=== PATIENT | female | born 2000 | race Caucasian/White ===

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

== ENCOUNTER → 2021-02-06 09:13 | Outpatient (CLI) | payer MEDICAID, SELFPAY ==
[2021-02-06 10:19] LABS: Glucose,Fasting 79 mg/dl (74-100)
[2021-02-06 13:37] LABS: Glucose 1 Hour 117 mg/dL (74-100)
== END ==
PROVIDERS: Visit Provider Obstetrics & Gynecology
DX: Z34.90 Encounter for supervision of normal pregnancy, unspecified, unspecified trimester (principal)
CPT/HCPCS: 36415; 82951

== ENCOUNTER 2021-02-21 20:32 | Outpatient (CLI) | payer MEDICAID, SELFPAY ==
[2021-02-21 21:26] VITALS: BMI 25.0
[2021-02-21 21:28] VITALS: BP 129/74; PULSE 119; RESP 18; TEMP 37.1; O2SAT 97; BMI 25.0
[2021-02-21 21:34] LABS: Microscopic, Urine URINE MICROSCOPIC (MICROSCOPIC)
[2021-02-21 21:35] LABS: Appearance,Urine TURBID (Clear); Bilirubin,Urine Negative (Negative); Blood, Urine Negative (Negative); Color,Urine YELLOW (Yellow); Glucose,Urine (UA) Negative (Negative); Ketones,Urine Negative (Negative); Leukocyte Esterase,Urine Negative (Negative); Nitrate,Urine Negative (Negative); Protein,Urine Negative (Negative); Urobilinogen,Urine 0.2 EU/dl (0.2)
[2021-02-21 21:50] LABS: Amorphous Sediment,Urine 2+ /lpf; Bacteria,Urine 1+ /lpf; WBC,Urine Occasional #/hpf (0-3)
[2021-02-21 22:10] LABS: Fetal Fibronectin (Rapid) Negative (Negative)
[2021-02-21 22:50] LABS: Barbiturates Screen,Urine Negative ng/ml (<200); Benzodiazepines Screen,Urine Negative ng/ml (<200)
[2021-02-21 22:51] LABS: Amphetamine/Metha Screen,Urine Negative ng/ml (<1000)
[2021-02-21 22:52] LABS: Cocaine Screen,Urine Negative ng/ml (<300); Methadone Screen,Urine Negative ng/ml (<300)
[2021-02-21 22:53] LABS: Cannabinoid Screen,Urine Negative ng/ml (<50)
[2021-02-21 22:54] LABS: Opiate Screen,Urine Negative ng/ml (<300); Phencyclidine Screen,Urine Negative ng/ml (<25)
== END 2021-02-21 22:29 | disposition home or self-care (01) ==
LOC: OBOUT 20:36 → OB 20:37
PROVIDERS: PCP Nurse Practitioner Family; Visit Provider Nurse Practitioner Obstetrics & Gynecology
DX: O47.03 False labor before 37 completed weeks of gestation, third trimester (principal); Z3A.30 30 weeks gestation of pregnancy
CPT/HCPCS: 59025; 80305; 81001; 82731; G0463

== ENCOUNTER 2021-03-28 09:19 | Outpatient (CLI) | payer MEDICAID, SELFPAY ==
--- NOTE | 2021-03-28 09:19 | US_ITS ---
PROCEDURE: US OB BIOPHYSICAL PROFILE CLINICAL INDICATION: tachycardia TECHNIQUE: FINDINGS: The following parameters are obtained: Average ultrasound age is Average 35 weeks 3 days estimated due date by ultrasound is 04/29/2021. Estimated weight is 2474 g which is 27th percentile. BPD: 37 weeks 0 days OFD: 36 weeks 5 days HC: 36 weeks 1 day AC: 34 weeks 2 days FL: 34 weeks 1 day heart rate: 172bpm bpm. HC/AC: 1.06 Cephalic index: 81 percent FL/BPD: 73 percent FL/AC: 22 percent Amniotic fluid index: 9.4 cm Qualitative AFV: 2 breathing movements: 2 Gross body movements: 2 Tone: 2 Biophysical profile score: 8 There is mild prominence of the urinary bladder of the fetus which is nonspecific. The placenta is anterior and 3 IMPRESSION: Live IUP at 35 weeks 3 days. Cephalic presentation. Estimated weight 2474 g which is 27th percentile BPD 8 of 8 GISSELLE 9.4 cm Anterior grade 3 placenta Dictated by: Arthur Cardoso MD 03/28/2021 10:36 Arthur Cardoso MD in [place] 03/28/2021 10:36
[2021-03-28 10:26] VITALS: BP 118/67; PULSE 105; RESP 20; TEMP 37.5; O2SAT 99; BMI 27.1
== END 2021-03-28 10:50 | disposition home or self-care (01) ==
LOC: RAD 09:19 → OBOUT 10:09 → OB 10:09
PROVIDERS: PCP Nurse Practitioner Family; Visit Provider Obstetrics & Gynecology
DX: O36.5990 Maternal care for other known or suspected poor fetal growth, unspecified trimester, not applicable or unspecified (principal); O36.8390 Maternal care for abnormalities of the fetal heart rate or rhythm, unspecified trimester, not applicable or unspecified; Z3A.35 35 weeks gestation of pregnancy
CPT/HCPCS: 59025; 76816; 76819; G0463

== ENCOUNTER → 2021-04-06 15:27 | Outpatient (CLI) | payer MEDICAID, SELFPAY | PROVIDERS: Visit Provider Obstetrics & Gynecology | DX: Z34.90 Encounter for supervision of normal pregnancy, unspecified, unspecified trimester (principal) | CPT/HCPCS: 86403 ==

== ENCOUNTER 2021-04-11 22:59 | Observation (INO) | payer MEDICAID, SELFPAY ==
[2021-04-11 21:11] VITALS: BMI 27.3
[2021-04-11 21:18] LABS: Microscopic, Urine URINE MICROSCOPIC (MICROSCOPIC)
[2021-04-11 21:30] LABS: Appearance,Urine CLEAR (Clear); Bilirubin,Urine Negative (Negative); Blood, Urine Negative (Negative); Color,Urine YELLOW (Yellow); Glucose,Urine (UA) Negative (Negative); Ketones,Urine Negative (Negative); Leukocyte Esterase,Urine Negative (Negative); Nitrate,Urine Negative (Negative); Protein,Urine Negative (Negative); Urobilinogen,Urine 0.2 EU/dl (0.2)
[2021-04-11 21:40] LABS: Benzodiazepines Screen,Urine Negative ng/ml (<200); WBC,Urine Occasional #/hpf (0-3)
[2021-04-11 21:41] LABS: Amphetamine/Metha Screen,Urine Negative ng/ml (<1000); Bacteria,Urine Trace /lpf; Yeast,Urine 1+ /lpf
[2021-04-11 21:42] LABS: Barbiturates Screen,Urine Negative ng/ml (<200); Cannabinoid Screen,Urine Negative ng/ml (<50)
[2021-04-11 21:43] LABS: Cocaine Screen,Urine Negative ng/ml (<300); Methadone Screen,Urine Negative ng/ml (<300)
[2021-04-11 21:44] LABS: Opiate Screen,Urine Negative ng/ml (<300)
[2021-04-11 21:45] LABS: Phencyclidine Screen,Urine Negative ng/ml (<25)
[2021-04-11 23:17] VITALS: BP 126/62; PULSE 104; RESP 20; TEMP 36.6; O2SAT 97; BMI 28.2
[2021-04-11 23:19] VITALS: BP 126/62; PULSE 104; RESP 20; TEMP 36.6; O2SAT 97
[2021-04-12 04:24] VITALS: BP 101/68; PULSE 120; RESP 20; TEMP 36.8; O2SAT 97
[2021-04-12 08:00] VITALS: BP 106/54; PULSE 101; RESP 20; TEMP 36.7; O2SAT 100
--- NOTE | 2021-04-12 09:48 | HMH.HPDC ---
General - General Admission date:: 04/11/21 Discharge date: 04/12/21 *Admission Date: 04/11/21 *Chief complaint: contractions *History of present illness: 20 yo G1 @ 37+ presented to L&D with complaint of uterine contractions Irregular contractions noted; no vaginal bleeding or leakage of fluid NST category 1 She was admitted for overnight observation and assessment for latent labor [facility] History I have reviewed the patient's past medical history: Yes Medical History: Reports:: Asthma Denies:: Diabetes Mellitus Type 1, Diabetes Mellitus Type 2 *Have you ever received a pneumonia vaccine?: No *Have you received a flu vaccine this season?: No Laterality Cases: Bilateral: Tonsillectomy Other Surgeries: No: Amputation: No Fractures: No - *Social History Smoking Status: Never smoker Tobacco Type: cigarettes Alcohol Intake: never Substance Use Type: denies use *Occupational Status:: unemployed *Travel in the last 8 weeks: None Family Hx:: Cancer, Diabetes, Hypertension Para: 0 Review of Systems - Review of Systems Review of systems:: pertinent systems reviewed and negative unless documented below - *Genitourinary Reports other (irregular contractions), Denies abnormal vaginal bleeding Exam Vital signs and Labs for Last 24 Hours: Temp Pulse Resp BP Pulse Ox 98.3 F 120 H 20 101/68 L 97 04/12/21 04:24 04/12/21 04:24 04/12/21 04:24 04/12/21 04:24 04/12/21 04:24 Laboratory Results - last 24 hr 04/11/21 21:10: Urine Color Yellow, Urine Appearance Clear, Urine pH 8.0, Ur Specific [place] 1.010, Urine Protein Negative, Urine Glucose (UA) Negative, Urine Ketones Negative, Urine Blood Negative, Urine Nitrate Negative, Urine Bilirubin Negative, Urine Urobilinogen 0.2, Ur Leukocyte Esterase Negative, Urine RBC None, Urine WBC Occasional, Ur Squamous Epith Cells 3-5, Urine Bacteria Trace, Urine Yeast 1+ 04/11/21 21:10: Urine Opiates Screen Negative, Urine Methadone Screen Negative, Ur Barbituates Screen Negative, Ur Phencyclidine Scrn Negative, Ur Amphetamines Screen Negative, U Benzodiazepines Scrn Negative, Urine Cocaine Screen Negative, U Marijuana (THC) Screen Negative I & O for Last 24 hours: Intake & Output 04/09/21 04/10/21 04/11/21/10/21 11:59 11:59 11:59 11:59 Weight 175 lb Microbiology Reports for the Last 24 Hours: Microbiology 04/12/21 00:20 Nasopharyngeal Coronavirus COVID-19 PCR - Final - Constitutional no acute distress - *Routine HEENT Exam Head: Present: normocephalic Eye: Absent: conjunctival icterus ENT: Present: mucous membranes moist - *Routine Neck Exam Present: supple. Absent: lymphadenopathy - *Routine Respiratory Exam Present: CTA bilaterally - *Routine Cardiovascular Exam Present: RRR - *Routine Abdominal Exam Present: soft, normoactive bowel sounds. Absent: tenderness - *Routine Rectal Exam Rectal:: deferred - *Routine Genitalia Exam Genitalia:: normal female Comment:: cervix closed - *Routine Extremities Exam Absent: cyanosis, clubbing, edema - *Routine Skin Exam Present: dry, warm. Absent: rash - *Routine Neurological Exam Present: alert, oriented X3 - Routine Psychiatric Exam Present: normal affect Hospital Course Hospital Course: IV hydration over night and monitoring Contractions spaced out and no cervical change Discharged home with no evidence of active labor and reassuring status Results Labs on day of discharge: Labs from last 24 hours 04/11/21 04/11/21 21:10 21:10 Urine Color Yellow Urine Appearance Clear Urine pH 8.0 Ur Specific [place] 1.010 Urine Protein Negative Urine Glucose (UA) Negative Urine Ketones Negative Urine Blood Negative Urine Nitrate Negative Urine Bilirubin Negative Urine Urobilinogen 0.2 Ur Leukocyte Esterase Negative Urine RBC None Urine WBC Occasional Ur Squamous Epith Cells 3-5 Urine Bacteria Trace
== END 2021-04-12 11:00 | disposition home or self-care (01) ==
LOC: OBOUT 23:01 → OB 23:01
PROVIDERS: Admitting Provider Nurse Practitioner Obstetrics & Gynecology; PCP Obstetrics & Gynecology; Visit Provider Nurse Practitioner Obstetrics & Gynecology
DX: O60.03 Preterm labor without delivery, third trimester (principal); Z3A.37 37 weeks gestation of pregnancy
CPT/HCPCS: 59025; 80305; 81001; 94761; 96360; 96361; G0283; G0378; U0003

== ENCOUNTER → 2021-04-24 16:19 | Outpatient (CLI) | payer MEDICAID, SELFPAY | PROVIDERS: Visit Provider Obstetrics & Gynecology | DX: Z34.90 Encounter for supervision of normal pregnancy, unspecified, unspecified trimester (principal); Z20.822 Contact with and (suspected) exposure to COVID-19 | CPT/HCPCS: U0003 ==

== ENCOUNTER 2021-04-25 14:30 | Inpatient (IN) | payer MEDICAID, SELFPAY ==
[2021-04-25 14:40] VITALS: BMI 28.8
[2021-04-25 15:00] VITALS: BP 136/62; PULSE 118; RESP 22; TEMP 36.8; O2SAT 100; BMI 28.0
[2021-04-25 15:04] LABS: Microscopic, Urine URINE MICROSCOPIC (MICROSCOPIC)
[2021-04-25 15:10] LABS: Basophils % 0.4 % (0.1-2.0); Eosinophils # 0.1 K/mm3 (0.0-0.4); Eosinophils % 0.7 % (0.1-12.0); Hematocrit 28.3 % (37.0-47.0); Hemoglobin 9.5 g/dL (12.2-16.2); Lymphocytes # 2.2 K/mm3 (0.7-4.5); Lymphocytes % 22.8 % (10-50); Mean Corpuscular HGB Conc 33.5 g/dL (31.8-35.4); Mean Corpuscular Volume 74.7 fl (81-99); Mean Platelet Volume 8.7 fl (7.4-10.4); Monocytes # 0.4 K/mm3 (0.1-1.0); Monocytes % 4.2 % (1.7-9.3); Neutrophils # 6.9 K/mm3 (1.8-7.8); Neutrophils % 71.9 % (37.0-80.0); Platelet Count 237 K/mm3 (142-424); Red Blood Count 3.79 M/mm3 (4.20-5.40); Red Cell Distribution Width 15.6 % (11.5-17.5); White Blood Count 9.6 K/mm3 (4.5-13.0)
[2021-04-25 15:14] LABS: Appearance,Urine SL CLOUDY (Clear); Bilirubin,Urine Negative (Negative); Blood, Urine 1+ (Negative); Color,Urine DK YELLOW (Yellow); Glucose,Urine (UA) Negative (Negative); Ketones,Urine Negative (Negative); Leukocyte Esterase,Urine Negative (Negative); Nitrate,Urine Negative (Negative); PH,Urine 6.5 (5.0-8.5); Protein,Urine Negative (Negative); Urobilinogen,Urine 0.2 EU/dl (0.2)
[2021-04-25 15:24] LABS: Amphetamine/Metha Screen,Urine Negative ng/ml (<1000); Benzodiazepines Screen,Urine Negative ng/ml (<200)
[2021-04-25 15:25] LABS: Barbiturates Screen,Urine Negative ng/ml (<200)
[2021-04-25 15:26] LABS: Cannabinoid Screen,Urine Negative ng/ml (<50); Cocaine Screen,Urine Negative ng/ml (<300)
[2021-04-25 15:27] LABS: Methadone Screen,Urine Negative ng/ml (<300); Opiate Screen,Urine Negative ng/ml (<300)
[2021-04-25 15:28] LABS: Phencyclidine Screen,Urine Negative ng/ml (<25)
[2021-04-25 15:37] LABS: Bacteria,Urine Trace /lpf
--- NOTE | 2021-04-25 18:50 | HMH.HP ---
*Admission Date: 04/25/21 *Chief complaint: IOL *History of present illness: 20 yo G1 @ 39 4/7 weeks for IOL uncomplicated with good care Irregular contractions denies vaginal bleeding or leakage of fluid normal movement [facility] History I have reviewed the patient's past medical history: Yes Medical History: Reports:: Asthma Denies:: Diabetes Mellitus Type 1, Diabetes Mellitus Type 2 *Have you ever received a pneumonia vaccine?: No *Have you received a flu vaccine this season?: No Anesthesia experience/problems:: nac Laterality Cases: Bilateral: Tonsillectomy Other Surgeries: No: Amputation: No Fractures: No - *Social History Smoking Status: Never smoker Tobacco Type: cigarettes Alcohol Intake: never Substance Use Type: denies use *Occupational Status:: unemployed *Travel in the last 8 weeks: None Family Hx:: Cancer, Diabetes, Hypertension : 1 Para: 0 Review of Systems - Review of Systems Review of systems:: pertinent systems reviewed and negative unless documented below - *Genitourinary Reports other (irregular contractions), Denies abnormal vaginal bleeding Meds Home Medications Medication Instructions Recorded Confirmed Type multivitamin,[id number] 1 tab PO DAILY 10/06/20 04/25/21 History promethazine 12.5 mg tablet 12.5 mg PO Q4-6H PRN #30 tab 11/17/20 04/25/21 Rx Acetaminophen [Acetaminophen 325mg 650 mg PO Q4HP PRN tab 04/12/21 04/25/21 Rx tab] Allergies Allergy/AdvReac Type Severity Reaction Status Date / Time cinnamon Allergy Mild rash Verified 04/24/21 15:33 Exam Vital signs and Labs for Last 24 Hours: Temp Pulse Resp BP Pulse Ox 98.1 F 105 H 20 116/68 98 04/26/21 04:02 04/26/21 04:02 04/26/21 04:02 04/26/21 04:02 04/26/21 04:02 Laboratory Results - last 24 hr 04/25/21 14:40: Urine Color Dk yellow, Urine Appearance Sl cloudy, Urine pH 6.5, Ur Specific [place] 1.020, Urine Protein Negative, Urine Glucose (UA) Negative, Urine Ketones Negative, Urine Blood 1+, Urine Nitrate Negative, Urine Bilirubin Negative, Urine Urobilinogen 0.2, Ur Leukocyte Esterase Negative, Urine RBC 3-5, Urine WBC None, Ur Squamous Epith Cells None, Urine Bacteria Trace 04/25/21 14:40: Urine Opiates Screen Negative, Urine Methadone Screen Negative, Ur Barbituates Screen Negative, Ur Phencyclidine Scrn Negative, Ur Amphetamines Screen Negative, U Benzodiazepines Scrn Negative, Urine Cocaine Screen Negative, U Marijuana (THC) Screen Negative 04/25/21 14:54: WBC 9.6, RBC 3.79 L, Hgb 9.5 L, Hct 28.3 L, MCV 74.7 L, MCH 25.0 L, MCHC 33.5, RDW 15.6, Plt Count 237, MPV 8.7, Neut % (Auto) 71.9, Lymph % (Auto) 22.8, Posey % (Auto) 4.2, Eos % (Auto) 0.7, Baso % (Auto) 0.4, Neut # (Auto) 6.9, Lymph # (Auto) 2.2, Posey # (Auto) 0.4, Eos # (Auto) 0.1, Baso # (Auto) 0.0 04/25/21 14:54: Blood Type A Positive, Antibody Screen Negative I & O for Last 24 hours: Intake & Output 04/23/21 04/24/21 04/25/21 04/26/21 11:59 11:59 11:59 11:59 Weight 179 lb - Constitutional no acute distress - *Routine HEENT Exam Head: Present: normocephalic Eye: Present: EOMI, PERRL ENT: Present: mucous membranes moist - *Routine Neck Exam Present: supple. Absent: lymphadenopathy - *Routine Respiratory Exam Present: CTA bilaterally - *Routine Cardiovascular Exam Present: RRR - *Routine Abdominal Exam Present: soft, normoactive bowel sounds. Absent: tenderness - *Routine Rectal Exam Rectal:: deferred - *Routine Genitalia Exam Genitalia:: normal female Comment:: cervix 50/-1 - *Routine Extremities Exam Absent: cyanosis, clubbing, edema - *Routine Skin Exam Present: warm. Absent: rash - *Routine Neurological Exam Present: alert, oriented X3 - Detailed Exam Comments: Sterile Speculum Exam: Cervix prepped with hibiclens cervical balloon catheter introduced through cervix and stylet removed uterine balloon inflated with 30cc ster
[2021-04-25 20:02] VITALS: BP 117/59; PULSE 114; RESP 17; TEMP 36.7; O2SAT 100
[2021-04-26 00:43] VITALS: BP 108/55; PULSE 101; RESP 20; TEMP 36.6; O2SAT 99
--- NOTE | 2021-04-26 03:55 | P.PN_ITS ---
[facility] Anesthesia Checklist - Patient Identification Patient Identification: Arm Band - Structural Data Admitted From: Home Planned Operative Procedure/s: labor epidural Consent for Planned Operative Procedure(s) Verified: Yes Verified Documents: Surgical Consent, History and Physical - NPO Status Verified Time NPO: 00:00 - Additional verifications Anesthesia Reactions: No - Airway Assessment C-Spine Mobility Assessed: Yes TMJ Mobility Assessed: Yes Dentition: Good Dentition - Neurological Assessment Level of Consciousness: Awake, Alert - Anesthesia Plan Anesthesia Risk discussed: Yes Anesthesia Plan: Verified ASA Class: II Anesthesia Type: Epidural [facility] History I have reviewed the patient's past medical history: Yes Medical History: Reports:: Asthma Denies:: Diabetes Mellitus Type 1, Diabetes Mellitus Type 2 *Have you ever received a pneumonia vaccine?: No *Have you received a flu vaccine this season?: No Anesthesia experience/problems:: nac Laterality Cases: Bilateral: Tonsillectomy Other Surgeries: No: Amputation: No Fractures: No - *Social History Smoking Status: Never smoker Tobacco Type: cigarettes Alcohol Intake: never Substance Use Type: denies use *Occupational Status:: unemployed *Travel in the last 8 weeks: None Family Hx:: Cancer, Diabetes, Hypertension Para: 0
[2021-04-26 04:02] VITALS: BP 116/68; PULSE 105; RESP 20; TEMP 36.7; O2SAT 98
--- NOTE | 2021-04-26 08:31 | HMH.LABNOT ---
Labor Note - Subjective: Date: 04/26/21 Time: 08:30 regular contraction - Objective: Contractions:: every 2-3 minutes Cervical Dilation:: 8 Effacement:: 100% Station: -1 Membranes: spontaneously ruptured - Fetus: Monitoring?: Yes monitoring type:: External - Assessment: Labor progressing?: Yes Patient Problems: All Active Problems 39 weeks gestation of (Acute) Uterine contractions (Acute) Asthma (Acute) Teen (Acute) (Acute) - Plan: Comment:: continue pitocin augmenation continuous monitoring anticipate
--- NOTE | 2021-04-26 12:44 | HMH.DN ---
- Delivery Note Delivery Date:: 04/26/21 Delivery Time:: 09:51 Anesthesia Type: Epidural Was labor medically induced?: Yes Induction method: per pitocin protocol delivered prior to 39 weeks?: No Infant Gender: Male at 1 minute: 7 at 5 minutes: 8 Delivery Procedure:: Spontaneous vaginal delivery of liveborn male over intact perineum. Delivery uncomplicated No nuchal cord; no shoulder dystocia with delivery placed in WILL with mother immediately after umbilical cord clamped/cut, with standard nursing assessment performed Apgars: 7 & 8 Placenta spontaneously expressed and examined; noted to be complete/intact. Vulva, vagina, and cervix inspected; 2nd degree laceration repaired with 2-0 vicryl in layers EBL: 300 cc All sponge/needle/instrument counts correct at conclusion of procedure Disposition: Mom/baby stable to recovery in LDRP Laceration:: vaginal Placental Delivery Description: Spontaneous
[2021-04-26 16:00] VITALS: BP 139/71; PULSE 111; RESP 20; TEMP 36.7; O2SAT 100
[2021-04-26 19:30] VITALS: BP 127/66; PULSE 85; RESP 17; TEMP 36.7; O2SAT 99
[2021-04-26 23:54] VITALS: BP 119/71; PULSE 91; RESP 18; TEMP 36.8; O2SAT 96
[2021-04-27 04:24] VITALS: BP 117/56; PULSE 98; RESP 18; TEMP 36.7; O2SAT 99
[2021-04-27 06:48] LABS: Hemoglobin 9.3 g/dL (12.2-16.2)
--- NOTE | 2021-04-27 12:01 | HMH.ACPN2 ---
Internal Medicine - PN: Subj *Date: 04/27/21 *Time: 12:01 Interval history: PPD #1 No unusual complaints Tolerating regular diet Ambulating and voiding without difficulty Lochia small Exam Vital signs and Labs for Last 24 Hours: Temp Pulse Resp BP Pulse Ox 98.1 F 98 H 18 117/56 L 99 04/27/21 04:24 04/27/21 04:24 04/27/21 04:24 04/27/21 04:24 04/27/21 04:24 Laboratory Results - last 24 hr 04/27/21 06:33: Hgb 9.3 L, Hct 28.0 L I & O for Last 24 hours: Intake & Output 04/25/21 04/26/21 04/27/21 04/28/21 11:59 11:59 11:59 11:59 Weight 179 lb Narrative: CONSTITUTIONAL: no acute distress HEENT: mucous membranes moist PULMONARY: breathing unlabored without audible wheezes CV: no tachycardia or visible JVD; normal LE peripheral pulses ABD: soft, NT/ND, no guarding : fundus firm at/below umbilicus SKIN: no visible rash or lesions EXT: 1+ edema LEs NEURO: alert/oriented, no altered mental status PSYCH: appropriate mood and demeanor without anxiety/depression Assessment and Plan (1) 39 weeks gestation of Status: Acute Category: Medical Code(s): Z3A.39 - 39 weeks gestation of (2) Teen Status: Acute Category: Medical - Assessment and plan all Dx Assessment and Plan for all problems:: Routine care anticipate discharge home tomorrow
--- NOTE | 2021-04-27 14:03 | SW/DCPLANNER ---
RECEIVED REFERRAL FOR THIS PATIENT STATING TEEN .... PATIENT PRESENTED INTO THE HOSPITAL 39 4/7 WEEKS IUP...SHE DELIVERED A LIVE BORN MALE VIA VAGINAL DELIVERY.. BOTH AND PATIENT ARE BOTH DOING WELL.. BABY WEIGHED 7LBS AND SHE IS BOTTLE FEEING.. INFANTS NAME IS CHUCKIE WHITING.. SHE HAS CHOSEN DR BURTON INFANTS DOCTOR.. SHE HAD AN UNCOMPLICATED AND WILL DISCHARGE TO HOME TMRW.. SHE HAS EVERYTHING SHE NEEDS TO TAKE HER BABY HOME.. CARSEAT, BOTTLES, DIAPERS, SLEEPERS AND BASSINET FOR IT TO SLEEP IN... SHE IS ENROLLED IN WIC AND STATED SHE IS THINKING ABOUT THE HANDS PROGRAM.. BABY'S FATHER AT BEDSIDE AND BOTH ARE APPROPRIATE WITH .. 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 NO DRUG OR ETOH ISSUES TO ADDRESS AT THIS TIME... DISCHARGE HOME TMRW..
[2021-04-28 08:00] VITALS: BP 121/62; PULSE 86; RESP 17; TEMP 36.6; O2SAT 98
--- NOTE | 2021-04-28 11:45 | HMH.OBDCSM ---
General - General Admission date:: 04/25/21 Discharge date: 04/28/21 HPI - History of Present Illness History of present illness: 20 yo G1 admitted at 39 4/7 for IOL cervical ripening with cervidil and cervical balloon, followed by pitocin augmentation Uncomplicated Hospital Course Hospital Course: course uneventful tolerating regular diet ambulating and voiding without difficulty lochia small and asymptomatic with chronic anemia Rhogam Administration: Not Indicated Objective Vital signs: Temp Pulse Resp BP Pulse Ox 97.8 F 86 17 121/62 98 04/28/21 08:00 04/28/21 08:00 04/28/21 08:00 04/28/21 08:00 04/28/21 08:00 Narrative: CONSTITUTIONAL: no acute distress HEENT: mucous membranes moist PULMONARY: breathing unlabored without audible wheezes CV: no tachycardia or visible JVD; normal LE peripheral pulses ABD: soft, NT/ND, no guarding : fundus firm at/below umbilicus SKIN: no visible rash or lesions EXT: 1+ edema LEs NEURO: alert/oriented, no altered mental status PSYCH: appropriate mood and demeanor DS: Diagnosis - Discharge Diagnosis (1) 39 weeks gestation of Status: Acute (2) Teen Status: Acute (3) Anemia complicating Status: Acute (4) Vaginal delivery Status: Acute Discharge Plan - Patient Discharge Instructions ACTIVITY: Continue current activity Additional Instructions: No heavy lifting or strenuous activity. Nothing in the vagina for 6 weeks. Patient Instructions: Depression, Hemorrhage, DI for Labor and Delivery, Vaginal , DI for Pre-eclampsia, [facility] Post Discharge Instructions, Preventing the Spread of Coronavirus Discharge Instructions - Follow up Plan Follow up with: Yu Oliver MD [Staff Physician] - 06/07/21 9:30 am Disposition: Home, Self-Care Condition at discharge:: Stable Home Medications: Home Medications Medication Instructions Recorded Confirmed Type multivitamin,[id number] 1 tab PO DAILY 10/06/20 04/25/21 History promethazine 12.5 mg tablet 12.5 mg PO Q4-6H PRN #30 tab 11/17/20 04/25/21 Rx Acetaminophen [Acetaminophen 325mg 650 mg PO Q4HP PRN tab 04/12/21 04/25/21 Rx tab] Prescriptions/Medication Reconciliation: New Ferrous Sulfate [Ferrous Sulfate 325mg Tablet] 325 mg PO BID tablet Acetaminophen [Acetaminophen 325mg tab] 650 mg PO Q4HP PRN tablet PRN Reason: Mild Pain Ibuprofen [Motrin 400mg tablet] 800 mg PO Q6HP PRN tablet PRN Reason: Mild To Moderate Pain Continued multivitamin,[id number]-[id number] 1 tab PO DAILY promethazine 12.5 mg tablet 12.5 mg PO Q4-6H PRN #30 tab PRN Reason: nausea and vomiting Acetaminophen [Acetaminophen 325mg tab] 650 mg PO Q4HP PRN tab PRN Reason: Mild Pain - Problem Reconciliation Problems Reviewed?: Yes
== END 2021-04-28 12:10 | disposition home or self-care (01) | DRG 807 ==
PROVIDERS: Admitting Provider Nurse Practitioner Obstetrics & Gynecology; PCP Nurse Practitioner Family; Visit Provider Obstetrics & Gynecology
DX: O70.1 Second degree perineal laceration during delivery (principal); Z37.0 Single live birth; Z3A.39 39 weeks gestation of pregnancy
CPT/HCPCS: 59409; 36415; 59025; 80305; 81001; 85014; 85018; 85025; 86850; 94761; G0283; J0595; J2405; U0003

== ENCOUNTER 2021-07-18 19:48 | Emergency (ER) | payer MEDICAID, SELFPAY ==
[2021-07-18 20:07] VITALS: BP 115/73; PULSE 112; RESP 20; O2SAT 99; BMI 23.5
[2021-07-18 21:20] VITALS: BP 125/67; PULSE 91; RESP 20; TEMP 36.8; O2SAT 100; BMI 23.5
--- NOTE | 2021-07-18 21:34 | HMH.EDUTC ---
[facility] [place] Clinical Impression: Panic attack Disposition: Home, Self-Care Condition on Discharge: Good Instructions: Anxiety and Panic Attacks (Alternative Therapy), DI for Panic Disorder Additional Instructions: Follow up with your Family Doctor for further treatment and evaluation Take medication as prescribed Return if needed Straight to ER if any life threatening symptoms Prescriptions: hydrOXYzine pamoate [Vistaril 25mg capsule] 25 mg PO Q8H PRN #30 cap PRN Reason: Anxiety Transmission Status: Pending to [facility] Referrals: Laura Tillman [Primary Care Provider] - As needed Time of Disposition: 22:03 Medical Decision Making - Ez Inquiry Pt receiving controlled substance: No Ez was queried for this patient: No Vital Signs: 07/18/21 20:07 07/18/21 21:20 07/18/21 21:52 Temperature 98.3 F 98.6 F Temperature Source Oral Pulse Rate 69 Pulse Rate [Right Brachial] 112 H 91 H Respiratory Rate 20 20 16 Blood Pressure 0/0 L Blood Pressure [Right Arm] 115/73 125/67 Blood Pressure Mean [Right Arm] 87 86 Blood Pressure Source [Right Arm] Automatic Cuff Blood Pressure Position [Right Arm] Sitting 02 Sat by Pulse Oximetry 99 100 Oxygen Delivery Method Room Air Room Air - Lab Data Lab results reviewed: Yes: I reviewed the patient's lab results. Orders (Tests/Meds): ED MEDICATIONS Discontinued Medications Generic Name Dose Route Start Last Admin Trade Name Freq PRN Reason Stop Dose Admin Hydroxyzine Pamoate 25 mg 07/18/21 21:39 07/18/21 21:51 Hydroxyzine Pamoate 25mg Capsule PO 07/18/21 21:40 25 mg ONCE ONE Administration [facility] [place] HPI - General Stated complaint: possible panic attack sob Time Seen by Provider: 07/18/21 21:34 Mode of Arrival: Ambulatory Description of Symptoms (Recalled from Triage Doc. by RN): C/O ANXIETY & PANIC ATTACKS SINCE FRIDAY STATES 'I CANT CATCH MY BREATH'. USED HER INHALER & SAID IT MADE IT WORSE HEENT Symptoms (Recalled from RN notes): No Resp Symptoms (Recalled from RN notes): No Skin Symptoms (Recalled from RN notes): No MS Symptoms (Recalled from RN notes): No Functional Status (Recalled from RN notes): WNL - History of Present Illness Provider Complaint: Patient states that she feels like she may be having a panic attack States that she has some anxiety but since Friday on and off she feels like she couldnt get a good breath so she used her Inhaler and it made it worse so tonight she came in - Related Data Previous Rx's Medication Instructions Recorded norgestimate 0.18 mg/0.215 mg/0.25 1 tab PO DAILY #28 tab 06/07/21 mg-ethinyl estradiol 25 mcg tablet hydrOXYzine pamoate [Vistaril 25mg 25 mg PO Q8H PRN #30 cap 07/18/21 capsule] Allergies Allergy/AdvReac Type Severity Reaction Status Date / Time cinnamon Allergy Mild rash Verified 07/18/21 21:25 - Worker's Comp Is this a Worker's Comp case?: No [facility] History - Hepatitis A Screen Drug use history?: No High risk sexual behaviors?: No History of sexually transmitted infection?: No Currently employed?: No Childcare worker?: No Do you have indoor plumbing?: Yes Do you have electricity?: Yes Attestation statement:: This patient has been screened for Hepatitis A risk factors. Medical History: Reports:: Asthma Denies:: Diabetes Mellitus Type 1, Diabetes Mellitus Type 2 Laterality Cases: Bilateral: Tonsillectomy Other Surgeries: No: Amputation: No Fractures: No - Social History Smoking Status: Never smoker Tobacco Type: cigarettes Alcohol Intake: never Substance Use Type: denies use Occupational Status: unemployed Family Hx:: Cancer, Diabetes, Hypertension ROS Obtained: Yes All systems reviewed & no additional complaints, Yes Systems reviewed as appropriate & no additional complaints - Constitutional Constitutional: Reports system reviewed and no additional complaints, except as docu - ENT Ears, Nose, Mouth, and Th
[2021-07-18 21:52] VITALS: BP 0/0; PULSE 69; RESP 16; TEMP 37
[2021-07-19 20:24] LABS: UTC Pregnancy Test, Urine Negative (Negative)
== END 2021-07-18 22:08 | disposition home or self-care (01) ==
PROVIDERS: Emergency Provider Nurse Practitioner; PCP Nurse Practitioner Family
DX: F41.0 Panic disorder [episodic paroxysmal anxiety] (principal); J45.909 Unspecified asthma, uncomplicated
CPT/HCPCS: 81025; 99202; G0463

== ENCOUNTER → 2021-07-26 10:40 | Outpatient (CLI) | payer MEDICAID, SELFPAY ==
--- NOTE | 2021-07-26 10:44 | US_ITS ---
PROCEDURE: US GALLBLADDER CLINICAL INDICATION: UPPER ABD PAIN, UNSPECIFIED COMPARISON: No exams were available for comparison FINDINGS: Pancreas: Unremarkable/Not well seen Liver: Unremarkable. There is appropriate direction of blood flow within a non dilated portal vein. Right kidney: Unremarkable appearing. No hydronephrosis. Gallbladder: No stones are evident. There is no gallbladder wall thickening. Common duct is normal in diameter. IMPRESSION: Negative gallbladder ultrasound. No stones evident. Dictated by: Arthur Cardoso MD 07/26/2021 13:13 Arthur Cardoso MD in [place] 07/26/2021 13:13
== END ==
PROVIDERS: PCP Nurse Practitioner Family; Visit Provider Nurse Practitioner
DX: R10.10 Upper abdominal pain, unspecified (principal)
CPT/HCPCS: 76705

== ENCOUNTER 2021-09-20 11:05 | Emergency (ER) | payer MEDICAID, SELFPAY ==
[2021-09-20 12:35] VITALS: BP 115/78; PULSE 113; RESP 20; TEMP 36.9; O2SAT 100; BMI 23.3
[2021-09-20 13:27] VITALS: BP 115/78; PULSE 113; RESP 20; TEMP 36.9; O2SAT 100
[2021-09-20 13:27] LABS: UTC Strep Screen (Rapid) Negative (Negative)
--- NOTE | 2021-09-20 13:30 | HMH.EDUTC ---
[facility] [place] Impression: Viral URI Disposition: Home, Self-Care Condition on Discharge: Good Instructions: Sore Throat, Common Cold Additional Instructions: *Monitor Temp, Over the counter Motrin or Tylenol as directed/as needed Tylenol every 4 hours and Motrin every 6 hours (as long as your family doctor has told you that you can take it) for fever or pain. and straight to ER if unable to lower temp less than 101.0 after medication given *Warm salt water gargles may help to soothe the throat *Throat Lozenges *Warm fluids like tea with honey may help to soothe the throat *Sleep elevated *Humidifier/Vaporizer Your throat swab was sent for culture. Those results are typically sent to your primary care. Be sure to follow up in 2-3 days with your family doctor/primary care physician if no improvement so they can review those result and treat if necessary. If you don?t have a primary care doctor, I recommend you get one but in the mean time, you will have to return to a walk in clinic Follow up IMMEDIATELY for new or worsening symptoms or no Noticeable improvement over the next 48-72 hours. 911 for difficulty breathing or swallowing Referrals: Laura Tillman [Primary Care Provider] - As needed Time of Disposition: 13:32 Medical Decision Making - Ez Inquiry Pt receiving controlled substance: No Ez was queried for this patient: No Vital Signs: 09/20/21 12:35 09/20/21 13:27 Temperature 98.5 F 98.5 F Temperature Source Oral Pulse Rate 113 H Pulse Rate [Right Brachial] 113 H Respiratory Rate 20 20 Blood Pressure 115/78 Blood Pressure [Right Arm] 115/78 Blood Pressure Mean [Right Arm] 90 Blood Pressure Source [Right Arm] Automatic Cuff Blood Pressure Position [Right Arm] Sitting 02 Sat by Pulse Oximetry 100 Oxygen Delivery Method Room Air - Lab Data Lab results reviewed: Yes: I reviewed the patient's lab results. Lab Results 09/20/21 12:50: Strep Scn Rapid Clinic Negative Orders (Tests/Meds): ORDERS Category Date Time Status Strep Screen Confirmation Stat Micro 09/20/21 12:50 [place]ceived [facility] [place] - General Stated complaint: Sore throat; cough Time Seen by Provider: 09/20/21 13:30 Mode of Arrival: Ambulatory Source of Information: Patient Limitations: No Limitations Description of Symptoms (Recalled from Triage Doc. by RN): PATIENT C/O SORE THROAT AND COUGH X 2 DAYS HEENT Symptoms (Recalled from RN notes): Yes Resp Symptoms (Recalled from RN notes): Yes Skin Symptoms (Recalled from RN notes): No MS Symptoms (Recalled from RN notes): No Functional Status (Recalled from RN notes): WNL - History of Present Illness Provider Complaint: Patient states that she has been having sore throat and cough for a couple of days and was worried that she may have strep throat so she came in to get checked - Related Data Home Medications Medication Instructions Recorded Confirmed Venlafaxine HCl [Venlafaxine HCl 37.5 mg PO DAILY 09/20/21 09/20/21 ER] Previous Rx's Medication Instructions Recorded norgestimate 0.18 mg/0.215 mg/0.25 1 tab PO DAILY #28 tab 06/07/21 mg-ethinyl estradiol 25 mcg tablet hydrOXYzine pamoate [Vistaril 25mg 25 mg PO Q8H PRN #30 cap 07/18/21 capsule] Allergies Allergy/AdvReac Type Severity Reaction Status Date / Time cinnamon Allergy Mild rash Verified 07/18/21 21:25 - Worker's Comp Is this a Worker's Comp case?: No [facility] History - Hepatitis A Screen Drug use history?: No High risk sexual behaviors?: No History of sexually transmitted infection?: No Currently employed?: No Childcare worker?: No Do you have indoor plumbing?: Yes Do you have electricity?: Yes Attestation statement:: This patient has been screened for Hepatitis A risk factors. I have reviewed the patient's past medical history: Yes Medical History: Reports:: Asthma Denies:: Diabetes Mellitus Type 1, Diabetes Mellitus Type 2 Laterality Cases: Bila
== END 2021-09-20 13:46 | disposition home or self-care (01) ==
PROVIDERS: Emergency Provider Nurse Practitioner; PCP Nurse Practitioner Family
DX: J06.9 Acute upper respiratory infection, unspecified (principal); J45.909 Unspecified asthma, uncomplicated
CPT/HCPCS: 87880; 99202; G0463

== ENCOUNTER 2021-10-30 15:44 | Emergency (ER) | payer MEDICAID, SELFPAY ==
[2021-10-30 16:34] VITALS: BP 123/72; PULSE 126; RESP 14; TEMP 37; O2SAT 98; BMI 21.9
--- NOTE | 2021-10-30 16:43 | HMH.EDUTC ---
[facility] [place] Clinical Impression: Viral syndrome, Bronchitis Pharyngitis Qualifiers: Pharyngitis/tonsillitis etiology: unspecified etiology Qualified Code(s): J02.9 - Acute pharyngitis, unspecified Disposition: Home, Self-Care Condition on Discharge: Good Instructions: DI for Acute Bronchitis, DI for COVID-19 (Suspected or Confirmed ), Preventing the Spread of Coronavirus Discharge Instructions Additional Instructions: Drink plenty of fluids. Take tylenol or ibuprofen for pain or fever. Take the medications as directed. Follow up with your regular doctor. GO TO THE ER FOR ANY WORSENING SYMPTOMS Quarantine until you know the results of your covid-19 test. If it is positive, the health department should call you and give you further instructions about your length of Quarantine and other things. Notify your school or workplace of your results and follow their instructions regarding return to work/school. Prescriptions: Brompheniramine/Pseudoephed/Dm [Bromfed Dm Cough Syrup] 5 ml PO Q6HP PRN #240 ml PRN Reason: Cough Transmission Status: Received by [facility] Amoxicillin/Potassium Clav [Augmentin 500mg tab] 500 mg PO TID 10 Days #30 tab Transmission Status: Received by [facility] methylPREDNISolone [Medrol] 4 mg PO DIRECTED 6 Days #21 packet Transmission Status: Received by [facility] Referrals: Laura Tillman [Primary Care Provider] - Forms: Work/School Release Time of Disposition: 18:03 Medical Decision Making - Medical Records Medical records reviewed: No: I reviewed the patient's medical records. - Ez Inquiry Pt receiving controlled substance: No Vital Signs: 10/30/21 16:34 10/30/21 17:11 Temperature 98.6 F 98.6 F Temperature Source Oral Pulse Rate 126 H Pulse Rate [Left] 126 H Respiratory Rate 14 14 Blood Pressure 123/72 Blood Pressure [Right Arm] 123/72 Blood Pressure Mean [Right Arm] 89 02 Sat by Pulse Oximetry 98 - Lab Data Lab results reviewed: Yes: I reviewed the patient's lab results. Lab Results 10/30/21 16:37: Influenza Type A Ag Negative, Influenza Type B Ag Negative 10/30/21 16:37: Strep Scn Rapid Clinic Negative Orders (Tests/Meds): ORDERS Category Date Time Status Covid-19 Nasal PCR ([facility]) Routine Lab 10/30/21 16:37 Received Strep Screen Confirmation Stat Micro 10/30/21 16:37 Received [facility] [place] - General Stated complaint: covid/flu/strep tests Time Seen by Provider: 10/30/21 16:43 Mode of Arrival: Ambulatory Source of Information: Patient Limitations: No Limitations Description of Symptoms (Recalled from Triage Doc. by RN): pt c/o fever, weakness, SOA, and n/v/d. HEENT Symptoms (Recalled from RN notes): No Resp Symptoms (Recalled from RN notes): Yes (SOA) Skin Symptoms (Recalled from RN notes): No MS Symptoms (Recalled from RN notes): No Functional Status (Recalled from RN notes): wnl - History of Present Illness Provider Complaint: She states that she has been feeling bad for the past 3 days. She has had a productive cough, sinus congestion, sore throat, chills and a low grade fever. She has been vaccinated against covid-19. - Related Data Home Medications Medication Instructions Recorded Confirmed Venlafaxine HCl [Venlafaxine HCl 37.5 mg PO DAILY 09/20/21 09/20/21 ER] Previous Rx's Medication Instructions Recorded norgestimate 0.18 mg/0.215 mg/0.25 1 tab PO DAILY #28 tab 06/07/21 mg-ethinyl estradiol 25 mcg tablet hydrOXYzine pamoate [Vistaril 25mg 25 mg PO Q8H PRN #30 cap 07/18/21 capsule] Amoxicillin/Potassium Clav 500 mg PO TID 10 Days #30 tab 10/30/21 [Augmentin 500mg tab] Brompheniramine/Pseudoephed/Dm 5 ml PO Q6HP PRN #240 ml 10/30/21 [Bromfed Dm Cough Syrup] methylPREDNISolone [Medrol] 4 mg PO DIRECTED 6 Days #21 10/30/21 packet Allergies Allergy/AdvReac Type Severity Reaction Status Date / Time cinnamon Allergy Mild rash Verified
[2021-10-30 16:48] LABS: UTC Strep Screen (Rapid) Negative (Negative)
[2021-10-30 16:49] LABS: UTC Influenza A Antigen Negative (Negative); UTC Influenza B Antigen Negative (Negative)
[2021-10-30 17:11] VITALS: BP 123/72; PULSE 126; RESP 14; TEMP 37
== END 2021-10-30 18:33 | disposition home or self-care (01) ==
PROVIDERS: Emergency Provider Nurse Practitioner Family; PCP Nurse Practitioner Family
DX: J20.9 Acute bronchitis, unspecified (principal); J02.9 Acute pharyngitis, unspecified; B34.9 Viral infection, unspecified; J45.909 Unspecified asthma, uncomplicated
CPT/HCPCS: 87804; 87880; 99203; C9803; G0463; U0003; U0005

== ENCOUNTER → 2021-11-05 13:42 | Outpatient (CLI) | payer MEDICAID, SELFPAY | PROVIDERS: Visit Provider Nurse Practitioner | DX: U07.1 COVID-19 (principal) | CPT/HCPCS: C9803; U0003; U0005 ==

== ENCOUNTER 2022-12-09 08:00 | Emergency (ER) | payer MEDICAID, SELFPAY ==
[2022-12-09 08:05] VITALS: BP 125/69; PULSE 107; RESP 20; TEMP 37.1; O2SAT 95; BMI 19.3
[2022-12-09 08:25] LABS: UTC Strep Screen (Rapid) Negative (Negative)
--- NOTE | 2022-12-09 08:39 | EXP.UTC ---
Discharge Plan Disposition Patient Disposition: Home, Self-Care Condition: Good Prescriptions Prescriptions: New amoxicillin [amoxicillin] 500 mg tablet 500 mg PO TID 10 Days Qty: 30 0RF methylprednisolone 4 mg Tablets,Dose Pack 4 mg PO DIRECTED Qty: 21 0RF albuterol sulfate [Ventolin HFA] 90 mcg/actuation HFA aerosol inhaler 2 puff inhalation Q6H PRN (Reason: shortness of breath or wheezing) Qty: 6.7 0RF albuterol sulfate [Ventolin HFA] 90 mcg/actuation HFA aerosol inhaler 2 puff inhalation Q6H PRN (Reason: shortness of breath or wheezing) Qty: 6.7 0RF ondansetron 4 mg Tablet,Disintegrating 4 mg PO Q8H PRN (Reason: Nausea) Qty: 12 0RF Referrals Follow up/Referrals: Laura Tillman [Primary Care Provider] - See instructions Activity Restrictions/Add. Instructions Additional Instructions/Restrictions: Drink plenty of fluids. Take tylenol or ibuprofen for pain or fever. Take the medications as directed. Follow up with your regular doctor. GO TO THE ER FOR ANY WORSENING SYMPTOMS Clinical Impressions Clinical Impression: Pharyngitis Stand Alone Forms Stand Alone Forms: Work/School Release Instructions Patient Instructions: Strep Throat, DI for Strep Throat Discharge ED Provider: Nader Howard [facility] General Stated complaint: sore throat,cough,SOA Mode of Arrival: Ambulatory Source of Information: Patient Limitations: No Limitations Time Seen by Provider: 12/09/22 08:35 Description of Symptoms (Recalled from Triage Doc. by RN): Wants tested for strep. Runny nose, cough, mucus, and weakness. HEENT Symptoms (Recalled from RN notes): Yes Resp Symptoms (Recalled from RN notes): No Skin Symptoms (Recalled from RN notes): No MS Symptoms (Recalled from RN notes): No Functional Status (Recalled from RN notes): n/a History of Present Illness Provider Complaint: She states that for the past 2 days she has had a sore throat, sinus congestion, cough, and fever. 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 She has a history of asthma. Related Data Previous Rx's Medication Instructions Recorded albuterol sulfate 90 mcg/actuation 2 puff inhalation Q6H PRN 12/09/22 aerosol inhaler (Ventolin HFA) shortness of breath or wheezing #6.7 grams albuterol sulfate 90 mcg/actuation 2 puff inhalation Q6H PRN 12/09/22 aerosol inhaler (Ventolin HFA) shortness of breath or wheezing #6.7 grams amoxicillin 500 mg tablet 500 mg PO TID 10 days #30 tabs 12/09/22 methylprednisolone 4 mg tablets in 4 mg PO DIRECTED #21 tabs 12/09/22 a dose pack ondansetron 4 mg disintegrating 4 mg PO Q8H PRN Nausea #12 tabs 12/09/22 tablet Allergies Allergy/AdvReac Type Severity Reaction Status Date / Time cinnamon Allergy Mild rash Verified 12/09/22 08:27 Worker's Comp Is this a Worker's Comp case?: No PFSH [facility] Disclaimer: The information contained in this section may have been updated after the patient was seen, as this information can be updated by other users. Social History Smoking Status: Never smoker alcohol intake: never substance use type: denies use current occupational status: unemployed Travel in the last 8 weeks: None ROS Obtained: Yes All systems reviewed & no additional complaints except as documented Constitutional Constitutional: Reports chills and Reports fever(s) Eyes Eyes: Denies eye discharge ENT Ears, Nose, Mouth, and Throat: Reports as per HPI Cardiovascular Cardiovascular: Denies chest pain Respiratory Respiratory: Denies chest congestion and Reports cough Gastrointestinal Gastrointestingal: Reports nausea; Denies abdominal pain, constipation, cramping, diarrhea or vomiting Musculoskeletal Musculoskeletal: Denies arthralgias Integumentary/Breasts Skin/Breast: Denies rash Neurologic Neurologic: Denies paresthesias Physical Exam General General appearan
[2022-12-09 08:54] VITALS: BP 125/69; PULSE 107; RESP 20; TEMP 37.1; O2SAT 95
== END 2022-12-09 08:54 | disposition home or self-care (01) ==
PROVIDERS: Emergency Provider Nurse Practitioner Family; PCP Nurse Practitioner Family
DX: J02.9 Acute pharyngitis, unspecified (principal)
CPT/HCPCS: 87880; 99212; 99213; G0463

== ENCOUNTER → 2023-01-29 13:34 | Outpatient (CLI) | payer MEDICAID, SELFPAY ==
[2023-01-29 14:42] LABS: Basophils # 0.1 K/mm3 (0-0.2); Basophils % 1.4 % (0.1-2.0); Eosinophils # 0.1 K/mm3 (0.0-0.4); Eosinophils % 1.5 % (0.1-12.0); Hemoglobin 13.5 g/dL (12.2-16.2); Lymphocytes # 2.4 K/mm3 (0.7-4.5); Lymphocytes % 46.5 % (10-50); Mean Corpuscular HGB Conc 31.5 g/dL (31.8-35.4); Mean Corpuscular Hemoglobin 27.5 pg (27.0-31.2); Mean Corpuscular Volume 87.4 fl (81-99); Mean Platelet Volume 8.5 fl (7.4-10.4); Monocytes # 0.5 K/mm3 (0.1-1.0); Monocytes % 9.3 % (1.7-9.3); Neutrophils # 2.2 K/mm3 (1.8-7.8); Neutrophils % 41.2 % (37.0-80.0); Platelet Count 228 K/mm3 (142-424); Red Blood Count 4.92 M/mm3 (4.20-5.40); Red Cell Distribution Width 13.9 % (11.5-17.5); White Blood Count 5.2 K/mm3 (4.8-10.8)
[2023-01-29 16:08] LABS: Alanine Aminotransferase 16 U/L (12-78); Albumin Level 4.5 g/dl (3.5-5.0); Alkaline Phosphatase 59 U/L (38-126); Anion Gap 11.3 mEq/L (5-15); Aspartate Amino Transferase 25 U/L (14-36); Bilirubin,Total 0.6 mg/dl (0.2-1.3); Blood Urea Nitrogen 11 mg/dl (7-17); Calcium 8.8 mg/dl (8.4-10.2); Carbon Dioxide 28 mmol/L (22.0-30.0); Chloride 102 mmol/L (98-107); Estimated Glomerular Filt Rate 79 ml/min (>60); GFR (African American) 96 ML/MIN (>60); Globulin 2.3 g/dL (1.3-3.2); Glucose 71 mg/dl (74-100); Potassium 4.3 mmoL/L (3.5-5.1); Sodium 137 mmol/L (136-145); Total Protein,Serum 6.8 g/dl (6.3-8.2)
[2023-01-31 12:12] LABS: FSH 8.5 mIU/mL (.); LH 8.5 mIU/mL (.); Prolactin 10.8 ng/mL (4.8-23.3)
== END ==
PROVIDERS: PCP Nurse Practitioner Family; Visit Provider Nurse Practitioner Family
DX: R10.2 Pelvic and perineal pain (principal); N64.3 Galactorrhea not associated with childbirth
CPT/HCPCS: 36415; 80053; 83001; 83002; 84146; 85025

== ENCOUNTER → 2023-02-24 17:50 | Outpatient (CLI) | payer MEDICAID, SELFPAY ==
--- NOTE | 2023-02-24 18:01 | US_ITS ---
PROCEDURE INFORMATION: Exam: US Pelvis, Transvaginal, US Duplex Artery and Vein of the Reproductive Organs, Complete Exam date and time: 02/24/2023 6:08 PM Age: 22 years old Clinical indication: Pelvic pain; Additional info: Chronic pelvic pain TECHNIQUE: Imaging protocol: Real-time transvaginal pelvic ultrasound with image documentation. Transvaginal imaging was used for better evaluation of the endometrium, adnexa, and/or cervix. Real-time duplex ultrasound scan of the arterial and venous flow of the abdominal and/or reproductive organs with B-mode, color Doppler flow and spectral waveform analysis with image documentation. Exam focused on the region of clinical concern. Complete exam. Duplex exam was performed to evaluate for vascular conditions. COMPARISON: No relevant prior studies available. FINDINGS: Uterus: Measures approximately 9.2 x 3.6 x 5.8 cm. Dilated subserosal myometrial uterine vessels. Small amount of anechoic fluid in the endocervical canal which demonstrates mild mucosal thickening likely within normal limits. Endometrial stripe thickness: Endometrial thickness is approximately 8 mm. Right ovary/adnexa: Measures approximately 8.7 mL. Multiple small anechoic follicles. Left ovary/adnexa: Measures approximately 11.1 mL. Dominant simple anechoic LEFT ovarian functional cyst/follicle measuring approximately 2.0 x 1.7 cm. Intraperitoneal space: No discernible adnexal mass or abnormality. No free fluid within the pelvis. Other findings: Doppler examination of the ovaries with pulsed wave and color images was performed which demonstrate arterial/venous waveforms within normal limits. IMPRESSION: 1. Dilated subserosal myometrial uterine vessels and small amount anechoic fluid within the endocervical canal with mild mucosal thickening. 2. Normal ovaries demonstrating blood flow on Doppler.
== END ==
PROVIDERS: PCP Nurse Practitioner Family; Visit Provider Obstetrics & Gynecology
DX: R10.2 Pelvic and perineal pain (principal); G89.29 Other chronic pain
CPT/HCPCS: 76830

== ENCOUNTER → 2023-07-02 23:27 | Outpatient (CLI) | payer MEDICAID, SELFPAY | PROVIDERS: PCP Nurse Practitioner Family; Visit Provider Obstetrics & Gynecology | DX: Z34.91 Encounter for supervision of normal pregnancy, unspecified, first trimester (principal) ==

== ENCOUNTER 2023-07-15 10:54 | Observation (INO) | payer OTHER, MEDICAID, SELFPAY ==
[2023-07-15 11:50] VITALS: BMI 19.5
[2023-07-15 12:00] VITALS: BP 103/44; PULSE 81; RESP 17; TEMP 36.9; O2SAT 98
[2023-07-15 12:54] LABS: Basophils % 0.4 % (0.1-2.0); Eosinophils # 0.1 K/mm3 (0.0-0.4); Eosinophils % 1.1 % (0.1-12.0); Hemoglobin 12.7 g/dL (12.2-16.2); Lymphocytes # 1.4 K/mm3 (0.7-4.5); Lymphocytes % 21.6 % (10-50); Mean Corpuscular HGB Conc 33.4 g/dL (31.8-35.4); Mean Corpuscular Hemoglobin 29.5 pg (27.0-31.2); Mean Corpuscular Volume 88.3 fl (81-99); Mean Platelet Volume 8.7 fl (7.4-10.4); Monocytes # 0.3 K/mm3 (0.1-1.0); Neutrophils # 4.8 K/mm3 (1.8-7.8); Neutrophils % 72.9 % (37.0-80.0); Platelet Count 173 K/mm3 (142-424); Red Cell Distribution Width 13.7 % (11.5-17.5); White Blood Count 6.6 K/mm3 (4.8-10.8)
[2023-07-15 13:06] LABS: Alanine Aminotransferase 17 U/L (12-78); Albumin Level 3.8 g/dl (3.5-5.0); Albumin/Globulin Ratio 1.3 (1.1-1.8); Alkaline Phosphatase 83 U/L (38-126); Anion Gap 11.3 mEq/L (5-15); Aspartate Amino Transferase 27 U/L (14-36); Bilirubin,Total 1.2 mg/dl (0.2-1.3); Blood Urea Nitrogen 6 mg/dl (7-17); Calcium 8.8 mg/dl (8.4-10.2); Carbon Dioxide 23 mmol/L (22.0-30.0); Chloride 104 mmol/L (98-107); Creatinine Clearance Estimated 191 mL/min (50-200); Estimated Glomerular Filt Rate 200 ml/min (>60); GFR (African American) 242 ML/MIN (>60); Glucose 72 mg/dl (74-100); Potassium 3.3 mmoL/L (3.5-5.1); Sodium 135 mmol/L (136-145); Total Protein,Serum 6.8 g/dl (6.3-8.2)
[2023-07-15 14:46] VITALS: BP 103/44; PULSE 81; RESP 17; TEMP 36.9; O2SAT 98; BMI 19.5
[2023-07-15 16:45] VITALS: BP 100/58; PULSE 93; RESP 18; TEMP 36.7; O2SAT 97
--- NOTE | 2023-07-15 18:45 | EXP.HP ---
History of Present Illness *Admission Date: 07/15/23 *Reason for visit:: Pyelonephritis *History of present illness: Ms Ashley Major is a 23 yo at 11w2d admitted to L&D for pyelonephritis. She complains of pelvic cramping that radiates to her back. She had urine culture on 07/02 that demonstrated E Coli. Culture resulted and antibiotics prescribed 07/08. 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 She took her first dose of Macrobid this morning. Admits to chills and admits she doesn't feel good. On exam, she had bilateral CVA tenderness to light palpation. [facility] Disclaimer: The information contained in this section may have been updated after the patient was seen, as this information can be updated by other users. Medical History (Updated 07/15/23 @ 18:51 by Liz Mireles DO) 11 weeks gestation of Asthma affecting , antepartum Chronic pelvic pain in female Dysmenorrhea Dyspareunia Endometriosis Hypokalemia Pyelonephritis affecting in first trimester Tobacco use affecting , antepartum Surgical History Hx of tonsillectomy Hx of wisdom tooth extraction Family History Grandmother Cancer Other Asthma Diabetes Social History Smoking Status: Current every day smoker tobacco type: cigarettes and e-cigarettes alcohol intake: never substance use type: denies use current occupational status: employed Travel in the last 8 weeks: None Review of Systems Review of Systems Review of systems:: pertinent systems reviewed and negative unless documented below Constitutional Constitutional: Reports chills *Gastrointestinal Gastrointestinal: Reports abdominal pain *Genitourinary Genitourinary: Reports pelvic pain *Musculoskeletal Musculoskeletal: Reports back pain Meds Home Medications and Allergies Home Medications Medication Instructions Recorded Confirmed Type albuterol sulfate 90 mcg/actuation 2 puff inhalation Q6H PRN 12/09/22 07/15/23 Rx aerosol inhaler (Ventolin HFA) shortness of breath or wheezing #6.7 grams promethazine 25 mg tablet 25 mg PO Q6H PRN nausea and 06/06/23 07/15/23 Rx vomiting #30 tabs nitrofurantoin 100 mg PO BID 7 days #14 caps 07/08/23 07/15/23 Rx monohydrate/macrocrystals 100 mg capsule (Macrobid) vits no.126-ferrous fum tab PO DAILY 07/15/23 07/15/23 History 28 mg iron-folic acid 800 mcg tablet (Classic ) New Prescriptions to Start Prescriptions: Allergies Allergy/AdvReac Type Severity Reaction Status Date / Time cinnamon Allergy Mild rash Verified 07/15/23 10:21 Exam Data for Last 24 hours Vital signs and Labs for Last 24 Hours: Temp Pulse Resp BP Pulse Ox O2 Del Method 98.5 F 81 17 103/44 L 98 Room Air 07/15/23 14:46 07/15/23 14:46 07/15/23 14:46 07/15/23 14:46 07/15/23 14:46 07/15/23 14:46 Laboratory Results - last 24 hr 07/15/23 12:30: WBC 6.6, RBC 4.30, Hgb 12.7, Hct 38.0, MCV 88.3, MCH 29.5, MCHC 33.4, RDW 13.7, Plt Count 173, MPV 8.7, Neut % (Auto) 72.9, Lymph % (Auto) 21.6, [place] % (Auto) 4.0, Eos % (Auto) 1.1, Baso % (Auto) 0.4, Neut # (Auto) 4.8, Lymph # (Auto) 1.4, [place] # (Auto) 0.3, Eos # (Auto) 0.1, Baso # (Auto) 0.0, Sodium 135 L, Potassium 3.3 L, Chloride 104, Carbon Dioxide 23, Anion Gap 11.3, BUN 6 L, Creatinine 0.40 L, Estimated Creat Clear 191, Estimated GFR 200, Est GFR ( Amer) 242, Glucose 72 L, Calcium 8.8, Total Bilirubin 1.2, AST 27, ALT 17, Alkaline Phosphatase 83, Total Protein 6.8, Albumin 3.8, Globulin 3.0, Albumin/Globulin Ratio 1.3, Blood Type A Positive I & O for Last 24 hours: Intake & Output 07/12/23 07/13/23 07/14/23 07/15/23 23:59 23:59 23:59 23:59 Weight 121 lb Constitutional Constitutional: no acute distress and mild distress *Routine
[2023-07-15 18:57] LABS: Microscopic, Urine URINE MICROSCOPIC (MICROSCOPIC)
[2023-07-15 19:01] LABS: Appearance,Urine CLEAR (Clear); Bilirubin,Urine Negative (Negative); Blood, Urine Negative (Negative); Color,Urine YELLOW (Yellow); Glucose,Urine (UA) Negative (Negative); Ketones,Urine Negative (Negative); Leukocyte Esterase,Urine Negative (Negative); Nitrate,Urine Negative (Negative); PH,Urine 6.5 (5.0-8.5); Protein,Urine Negative (Negative); Specific Gravity, Urine >= 1.030 (1.005-1.030)
[2023-07-15 19:14] LABS: Amphetamine/Metha Screen,Urine Negative ng/ml (<1000); Barbiturates Screen,Urine Negative ng/ml (<200)
[2023-07-15 19:15] LABS: Benzodiazepines Screen,Urine Negative ng/ml (<200)
[2023-07-15 19:16] LABS: Cannabinoid Screen,Urine Negative ng/ml (<50); Cocaine Screen,Urine Negative ng/ml (<300)
[2023-07-15 19:17] LABS: Methadone Screen,Urine Negative ng/ml (<300)
[2023-07-15 19:18] LABS: Opiate Screen,Urine Negative ng/ml (<300); Phencyclidine Screen,Urine Negative ng/ml (<25)
[2023-07-15 19:27] LABS: Bacteria,Urine 2+ /lpf; WBC,Urine Occasional #/hpf (0-3)
[2023-07-15 20:00] VITALS: BP 102/60; PULSE 84; RESP 16; TEMP 37; O2SAT 95
[2023-07-16] VITALS: BP 101/56; PULSE 88; RESP 18; TEMP 36.9; O2SAT 96
[2023-07-16 06:00] VITALS: BP 91/42; PULSE 77; RESP 14; TEMP 36.9; O2SAT 98
[2023-07-16 08:15] VITALS: BP 90/54; PULSE 85; RESP 18; TEMP 36.9; O2SAT 100
[2023-07-16 09:55] LABS: HIV Screen 4th Generation wRfx Non Reactive (Non Reactive)
--- NOTE | 2023-07-16 10:05 | SW/DCPLANNER ---
I received a consult on this patient regarding PCS4 answers. I spoke with patient this AM: patient stated that she is doing well and will be discharging home today. Patient stated that she will have transportation home and does not have any needs at this time. I informed patient that OB staff will provided patient w/ [facility] Resource List prior to discharging. Patient will be following up w/ Dr Mireles and will reach out if she has any further questions/needs.
[2023-07-16 11:47] LABS: Basophils % 0.5 % (0.1-2.0); Eosinophils # 0.1 K/mm3 (0.0-0.4); Eosinophils % 1.9 % (0.1-12.0); Hematocrit 40.4 % (37.0-47.0); Hemoglobin 13.4 g/dL (12.2-16.2); Lymphocytes # 1.6 K/mm3 (0.7-4.5); Lymphocytes % 29.7 % (10-50); Mean Corpuscular HGB Conc 33.2 g/dL (31.8-35.4); Mean Corpuscular Hemoglobin 29.4 pg (27.0-31.2); Mean Corpuscular Volume 88.6 fl (81-99); Mean Platelet Volume 8.9 fl (7.4-10.4); Monocytes # 0.3 K/mm3 (0.1-1.0); Monocytes % 6.1 % (1.7-9.3); Neutrophils # 3.3 K/mm3 (1.8-7.8); Neutrophils % 61.8 % (37.0-80.0); Platelet Count 184 K/mm3 (142-424); Red Blood Count 4.57 M/mm3 (4.20-5.40); Red Cell Distribution Width 13.7 % (11.5-17.5); White Blood Count 5.3 K/mm3 (4.8-10.8)
[2023-07-16 12:05] VITALS: BP 99/54; PULSE 80; RESP 18; O2SAT 96
[2023-07-16 12:05] LABS: Hepatitis B Surface Antigen Negative (Negative); Rubella Antibodies, IgG 1.32 index (Immune >0.99)
[2023-07-16 12:12] LABS: Rapid Plasma Reagin Ab Titer Non Reactive titer (NonRea<1:1)
--- NOTE | 2023-07-16 14:06 | EXP.DC.SUM ---
General Admission date:: 07/15/23 Discharge date: 07/16/23 HPI HPI HPI: She is feeling better today. Cramping has improved. No vaginal bleeding. No fever/chills. Voiding without difficulty. Hospital Course Hospital Course Hospital Course: Ms Ashley Major is a 23 yo at 11w2d admitted to L&D for pyelonephritis. She complains of pelvic cramping that radiates to her back. She had urine culture on 07/02 that demonstrated E Coli. Culture resulted and antibiotics prescribed 07/08. 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 She took her first dose of Macrobid this morning. Admits to chills and admits she doesn't feel good. On exam, she had bilateral CVA tenderness to light palpation. She was admitted to L&D for IV fluids and Rocephin. FHT were performed q shift. Labs within normal limits. Vital signs stable, afebrile. She complained of heartburn resolved by Pepcid. She was discharged home with instructions to complete course of Macrobid. Exam Data for Last 24 hours Vital signs and Labs for Last 24 Hours: Temp Pulse Resp BP Pulse Ox O2 Del Method 98.5 F 80 18 99/54 L 96 Room Air 07/16/23 08:15 07/16/23 12:05 07/16/23 12:05 07/16/23 12:05 07/16/23 12:05 07/16/23 12:05 Laboratory Results - last 24 hr 07/15/23 12:30: RPR Titer Non reactive, Hep Bs Antigen Negative, HIV 1&2 Ag/Ab, 4th Gen Non reactive, Rubella IgG Antibody 1.32 07/15/23 18:35: Urine Color Yellow, Urine Appearance Clear, Urine pH 6.5, Ur Specific [place] >= 1.030, Urine Protein Negative, Urine Glucose (UA) Negative, Urine Ketones Negative, Urine Blood Negative, Urine Nitrate Negative, Urine Bilirubin Negative, Urine Urobilinogen 2.0, Ur Leukocyte Esterase Negative, Urine RBC None, Urine WBC Occasional, Ur Squamous Epith Cells 5-10, Urine Bacteria 2+, Urine Opiates Screen Negative, Urine Methadone Screen Negative, Ur Barbituates Screen Negative, Ur Phencyclidine Scrn Negative, Ur Amphetamines Screen Negative, U Benzodiazepines Scrn Negative, Urine Cocaine Screen Negative, U Marijuana (THC) Screen Negative 07/16/23 11:20: WBC 5.3, RBC 4.57, Hgb 13.4, Hct 40.4, MCV 88.6, MCH 29.4, MCHC 33.2, RDW 13.7, Plt Count 184, MPV 8.9, Neut % (Auto) 61.8, Lymph % (Auto) 29.7, [place]cd[place] % (Auto) 6.1, Eos % (Auto) 1.9, Baso % (Auto) 0.5, Neut # (Auto) 3.3, Lymph # (Auto) 1.6, [place]cd[place] # (Auto) 0.3, Eos # (Auto) 0.1, Baso # (Auto) 0.0 I & O for Last 24 hours: Intake & Output 07/13/23 07/14/23 07/15/23 07/16/23 23:59 23:59 23:59 23:59 Weight 121 lb Constitutional Constitutional: no acute distress *Routine HEENT Exam Head: Present normocephalic and atraumatic Eye: Absent conjunctivae pink ENT: Present mucous membranes moist *Routine Neck Exam Neck: Present full ROM *Routine Respiratory Exam Respiratory: Present CTA bilaterally and normal respiratory effort *Routine Cardiovascular Exam Cardiovascular: Present RRR *Routine Abdominal Exam Abdominal: Present soft and normoactive bowel sounds; Absent tenderness *Routine Rectal Exam Patient deferred: visual exam *Routine Exam Patient deferred: external exam *Routine Neurological Exam Neurological: Present alert, oriented X3 and moving all extremities Routine Psychiatric Exam Psychiatric: Present normal affect and cooperative Results Data Completed and Pending Labs on day of discharge: Labs from last 24 hours 07/16/23 07/15/23 07/15/23 11:20 18:35 12:30 WBC 5.3 RBC 4.57 Hgb 13.4 Hct 40.4 MCV 88.6 MCH 29.4 MCHC 33.2 RDW 13.7 Plt Count 184 MPV 8.9 Neut % (Auto) 61.8 Lymph % (Auto) 29.7 Mcdonald % (Auto) 6.1 Eos % (Auto) 1.9 Baso % (Auto) 0.5 Neut # (Auto) 3.3 Lymph # (Auto) 1.6 Mcdonald # (Auto) 0.3 Eos # (Auto) 0.1 Baso # (Auto) 0.0 Urine Color Yellow Urine Appearance Clear Urine pH 6.5 Ur Specific [place] >= 1.030 Urine Protein Negative Urine Glucose (UA) Negative Urine Ketones Negative Urine Blood Negative
== END 2023-07-16 12:45 | disposition home or self-care (01) ==
PROVIDERS: Admitting Provider Obstetrics & Gynecology; PCP Nurse Practitioner Family; Visit Provider Obstetrics & Gynecology
DX: O23.01 Infections of kidney in pregnancy, first trimester (principal); O99.331 Smoking (tobacco) complicating pregnancy, first trimester; O99.511 Diseases of the respiratory system complicating pregnancy, first trimester; J45.909 Unspecified asthma, uncomplicated; O99.281 Endocrine, nutritional and metabolic diseases complicating pregnancy, first trimester; E87.6 Hypokalemia
CPT/HCPCS: 36415; 80053; 80305; 81001; 85025; 86593; 86762; 86900; 86901; 87086; 87340; G0378; J0696; J2405

== ENCOUNTER → 2023-09-15 13:12 | Outpatient (CLI) | payer OTHER, MEDICAID, SELFPAY ==
--- NOTE | 2023-09-15 13:14 | US_ITS ---
PROCEDURE: US OB /MATERNAL DETAIL CLINICAL INDICATION: 20 week anatomy scan COMPARISON: None FINDINGS: Transabdominal sonographic images of the pelvis were obtained. From her established due date she is 20 weeks 1 day. Single viable intrauterine gestation. Initially breech changing to cephalic position. Placenta: Posteriorplacenta grade 1. There is an average amount of fluid. MVP 2.8 cm. The cervix appears satisfactory. Closed and measuring 3.0 cm in length. Complete survey performed and was unremarkable on the submitted images as in PACS. No discrete anomalies identified on survey imaging by technologist. Active fetus. Three-vessel cord with satisfactory umbilical cord insertion. 4- chamber heart noted. Situs, aortic arch, LVOT, RVOT, three-vessel view appear normal. Survey of brain & ventricles Unremarkable. Choroid plexus, thalamus, cerebellum, cisterna magna appear normal. Face and neck survey unremarkable. Profile, nasion, lips and nose appeared normal. Diaphragm and chest views unremarkable. Abdomen: Both kidneys noted and unremarkable. Stomach and bladder noted and satisfactory. Spine: Survey of the spine satisfactory with no anomalies identified nor imaged. Cervical, thoracic, lower spine appear normal. Both arms and legs noted. Amniotic Fluid: Adequate. Measurements: Average ultrasound age 20weeks 1day. Estimated due date by ultrasound age 0302/01/2024. Estimated weight 326g BPD = 20weeks 3days HC = 19weeks 6days AC = 20weeks 1day FL = 20weeks Growth Percentile= 38 Heart Rate = 156bpm Cerebellum = 20weeks Humerus = 20weeks 4days HC/AC is 1.16 FL/BPD is 0.67 FL/AC is 0.22 IMPRESSION: 1. Viable fetus initially breech then cephalic presentation. 2. The placenta is posterior grade 1. 3. The fluid is within normal limits with an MVP of 2.8 cm. 4. Anatomical scan appears normal. 5. biometry is consistent with the dates. Dictated by: Lance Coley MD 09/15/2023 17:13 Lance Coley MD in [place] 09/15/2023 17:13
== END ==
LOC: RAD 13:12
PROVIDERS: PCP Nurse Practitioner Family; Visit Provider Obstetrics & Gynecology
DX: Z34.92 Encounter for supervision of normal pregnancy, unspecified, second trimester (principal); Z3A.20 20 weeks gestation of pregnancy
CPT/HCPCS: 76811

== ENCOUNTER 2023-11-11 10:46 | Outpatient (CLI) | payer OTHER, MEDICAID, SELFPAY ==
[2023-11-11 11:31] LABS: Basophils # 0.1 K/mm3 (0-0.2); Basophils % 0.6 % (0.1-2.0); Eosinophils # 0.1 K/mm3 (0.0-0.4); Eosinophils % 0.8 % (0.1-12.0); Hematocrit 36.9 % (37.0-47.0); Hemoglobin 12.3 g/dL (12.2-16.2); Lymphocytes # 2.2 K/mm3 (0.7-4.5); Lymphocytes % 17.1 % (10-50); Mean Corpuscular HGB Conc 33.5 g/dL (31.8-35.4); Mean Corpuscular Hemoglobin 30.9 pg (27.0-31.2); Mean Corpuscular Volume 92.3 fl (81-99); Mean Platelet Volume 9.1 fl (7.4-10.4); Monocytes # 0.6 K/mm3 (0.1-1.0); Monocytes % 4.7 % (1.7-9.3); Neutrophils % 76.9 % (37.0-80.0); Platelet Count 211 K/mm3 (142-424); Red Blood Count 3.99 M/mm3 (4.20-5.40); Red Cell Distribution Width 13.3 % (11.5-17.5)
[2023-11-11 11:33] LABS: Glucose,Fasting 74 mg/dl (74-100)
[2023-11-11 12:26] LABS: Chloride 106 mmol/L (98-107); Potassium 4.2 mmoL/L (3.5-5.1); Sodium 135 mmol/L (136-145)
[2023-11-11 12:28] LABS: Alanine Aminotransferase 10 U/L (12-78); Amylase 66 U/L (30-110); Aspartate Amino Transferase 23 U/L (14-36); Blood Urea Nitrogen 6 mg/dl (7-17); Estimated Glomerular Filt Rate 200 ml/min (>60); GFR (African American) 242 ML/MIN (>60)
[2023-11-11 12:29] LABS: Albumin Level 3.3 g/dl (3.5-5.0); Albumin/Globulin Ratio 1.2 (1.1-1.8); Alkaline Phosphatase 106 U/L (38-126); Anion Gap 8.2 mEq/L (5-15); Bilirubin,Total 0.4 mg/dl (0.2-1.3); Calcium 8.6 mg/dl (8.4-10.2); Carbon Dioxide 25 mmol/L (22.0-30.0); Globulin 2.7 g/dL (1.3-3.2); Glucose 67 mg/dl (74-100); Lipase 64 U/L (23-300)
[2023-11-11 17:48] LABS: Glucose 1 Hour 73 mg/dL (74-100)
== END 2023-11-11 23:59 ==
LOC: LAB 10:47
PROVIDERS: PCP Nurse Practitioner Family; Visit Provider Obstetrics & Gynecology
DX: O26.893 Other specified pregnancy related conditions, third trimester (principal); R19.7 Diarrhea, unspecified; B96.29 Other Escherichia coli [E. coli] as the cause of diseases classified elsewhere; Z3A.28 28 weeks gestation of pregnancy
CPT/HCPCS: 36415; 80053; 82150; 82951; 83690; 85025

== ENCOUNTER 2023-11-19 11:34 | Outpatient (CLI) | payer OTHER, MEDICAID, SELFPAY ==
[2023-11-19 12:26] VITALS: BMI 23.0
[2023-11-19 12:46] LABS: Microscopic, Urine URINE MICROSCOPIC (MICROSCOPIC)
[2023-11-19 12:54] LABS: Appearance,Urine CLEAR (Clear); Blood, Urine Negative (Negative); Color,Urine YELLOW (Yellow); Glucose,Urine (UA) Negative (Negative); Ketones,Urine TRACE (Negative); Leukocyte Esterase,Urine Negative (Negative); Nitrate,Urine Negative (Negative); Protein,Urine TRACE (Negative); Specific Gravity, Urine >= 1.030 (1.005-1.030)
[2023-11-19 13:01] LABS: Bilirubin,Urine Negative (Negative)
[2023-11-19 13:15] LABS: Amphetamine/Metha Screen,Urine Negative ng/ml (<1000)
[2023-11-19 13:17] LABS: Barbiturates Screen,Urine Negative ng/ml (<200); Benzodiazepines Screen,Urine Negative ng/ml (<200)
[2023-11-19 13:18] LABS: Cannabinoid Screen,Urine Negative ng/ml (<50); Cocaine Screen,Urine Negative ng/ml (<300)
[2023-11-19 13:19] LABS: Methadone Screen,Urine Negative ng/ml (<300)
[2023-11-19 13:20] LABS: Opiate Screen,Urine Negative ng/ml (<300); Phencyclidine Screen,Urine Negative ng/ml (<25)
[2023-11-19 13:26] LABS: Bacteria,Urine Trace /lpf; Squamous Epithelial Cell,Urine 20-50 #/hpf (0-5)
[2023-11-19] MEDS: DEXTROSE 5%-LACTATED RINGERS 1,000 ML 999 ML IV (13:45)
[2023-11-19 14:13] VITALS: BP 111/71; PULSE 109; RESP 18; TEMP 36.8; O2SAT 96; BMI 22.7
[2023-11-19] MEDS: NIFEdipine 10MG CAPSULE 10 MG PO (15:05)
== END 2023-11-19 15:48 | disposition home or self-care (01) ==
LOC: OBOUT 11:36 → OB 11:36
PROVIDERS: PCP Nurse Practitioner Family; Visit Provider Nurse Practitioner Obstetrics & Gynecology
DX: O26.893 Other specified pregnancy related conditions, third trimester (principal); Z3A.29 29 weeks gestation of pregnancy; R10.2 Pelvic and perineal pain; M54.50 Low back pain, unspecified
CPT/HCPCS: 59025; 80307; 81001; 96365; G0463

== ENCOUNTER 2023-12-01 11:16 | Emergency (ER) | payer OTHER, MEDICAID, SELFPAY ==
[2023-12-01 11:16] VITALS: BP 119/69; PULSE 103; RESP 16; TEMP 37; O2SAT 96; BMI 23.5
[2023-12-01 11:30] VITALS: BP 104/62; PULSE 104; O2SAT 96
[2023-12-01 12:00] VITALS: BP 110/77; PULSE 107; O2SAT 96
[2023-12-01] MEDS: ACETAMINOPHEN 1,000MG/100ML VIAL 1000 MG IV (12:06)
[2023-12-01] MEDS: ONDANSETRON 4MG/2ML VIAL 4 MG IV (12:06)
[2023-12-01] MEDS: LACTATED RINGERS 1000ML 1,000 ML 999 ML IV (12:06)
[2023-12-01 12:07] LABS: Basophils # 0.1 K/mm3 (0-0.2); Basophils % 0.5 % (0.1-2.0); Eosinophils # 0.1 K/mm3 (0.0-0.4); Eosinophils % 0.9 % (0.1-12.0); Hematocrit 32.8 % (37.0-47.0); Hemoglobin 11.4 g/dL (12.2-16.2); Lymphocytes # 2.4 K/mm3 (0.7-4.5); Mean Corpuscular HGB Conc 34.8 g/dL (31.8-35.4); Mean Corpuscular Hemoglobin 30.9 pg (27.0-31.2); Mean Corpuscular Volume 88.7 fl (81-99); Mean Platelet Volume 9.4 fl (7.4-10.4); Monocytes # 0.7 K/mm3 (0.1-1.0); Monocytes % 5.6 % (1.7-9.3); Neutrophils # 9.9 K/mm3 (1.8-7.8); Neutrophils % 74.9 % (37.0-80.0); Platelet Count 251 K/mm3 (142-424); Red Blood Count 3.69 M/mm3 (4.20-5.40); White Blood Count 13.2 K/mm3 (4.8-10.8)
[2023-12-01 12:12] LABS: Microscopic, Urine URINE MICROSCOPIC (MICROSCOPIC)
[2023-12-01 12:13] LABS: Alanine Aminotransferase 14 U/L (12-78); Albumin Level 3.2 g/dl (3.5-5.0); Albumin/Globulin Ratio 1.1 (1.1-1.8); Alkaline Phosphatase 116 U/L (38-126); Anion Gap 9.7 mEq/L (5-15); Aspartate Amino Transferase 25 U/L (14-36); Bilirubin,Total 0.3 mg/dl (0.2-1.3); Blood Urea Nitrogen 7 mg/dl (7-17); Calcium 8.7 mg/dl (8.4-10.2); Carbon Dioxide 20 mmol/L (22.0-30.0); Chloride 109 mmol/L (98-107); Creatinine Clearance Estimated 237 mL/min (50-200); Estimated Glomerular Filt Rate 200 ml/min (>60); GFR (African American) 242 ML/MIN (>60); Globulin 2.9 g/dL (1.3-3.2); Glucose 103 mg/dl (74-100); Potassium 3.7 mmoL/L (3.5-5.1); Sodium 135 mmol/L (136-145); Total Protein,Serum 6.1 g/dl (6.3-8.2)
[2023-12-01 12:13] LABS: Appearance,Urine SL CLOUDY (Clear); Bilirubin,Urine Negative (Negative); Blood, Urine Negative (Negative); Color,Urine YELLOW (Yellow); Glucose,Urine (UA) Negative (Negative); Ketones,Urine Negative (Negative); Leukocyte Esterase,Urine TRACE (Negative); Nitrate,Urine Negative (Negative); PH,Urine 8.5 (5.0-8.5); Protein,Urine Negative (Negative)
--- NOTE | 2023-12-01 12:13 | ECG_ITS ---
APPROVED REPORT Exam: Resting ECG HR:93 bpm ECG Measurements Heart Rate 93 AXES MT 142 P 51 QRSd 88 QRS 73 QT 351 T 43 QTc 402 Conclusion SINUS RHYTHM NORMAL ECG UNCONFIRMED REPORT Electronically signed by : Erik Almeida MD 12/02/2023 16:41:31
--- NOTE | 2023-12-01 12:18 | HMH.EDGENADL ---
Discharge Plan Disposition Patient Disposition: Xfer Other Condition: Good Prescriptions Prescriptions: No Action Classic 28 mg iron- 800 mcg tablet 1 tab PO DAILY pantoprazole [Protonix] 40 mg tablet,delayed release (DR/EC) 40 mg PO DAILY promethazine 25 mg tablet 25 mg PO Q6HP PRN (Reason: nausea and vomiting) albuterol sulfate [Ventolin HFA] 90 mcg/actuation HFA aerosol inhaler 2 puff inhalation Q6HP PRN (Reason: shortness of breath or wheezing) Activity Restrictions/Add. Instructions Additional Instructions/Restrictions: You were evaluated in the emergency department today. Please proceed upstairs to labor and delivery for evaluation. Return to the emergency department for new or worsening symptoms. Clinical Impressions Clinical Impression: Syncope, Abdominal pain affecting Instructions Patient Instructions: DI for Syncope in Adults (Fainting), DI for Syncope in Children (Fainting) Discharge ED Provider: Jessica Lu General Adult HPI General Chief complaint: Syncope Stated complaint: ABD Pain Time Seen by Provider: 12/01/23 11:19 Mode of Arrival: EMS Source of Information: Patient and EMS Limitations: No Limitations Description of Symptoms (Recalled from ER Triage Doc. by RN): c/o lower abdomen cramping that goes into her left side into lower back, nausea yesterday. Dizziness when she woke up this morning. While at work she went to vomit and passed out. Pt states she was able to sit down to the floor before passing out, denies any injuries at this time. 31 weeks History of Present Illness HPI narrative: This patient is a 23-year-old G2, P1 at estimated 31 weeks gestational age presenting to the emergency department for evaluation with concern for lower abdominal pain. Patient states that she has had cramping in her lower abdomen, worse on the left side, since she woke up this morning. She also felt significant nausea. She states that she got up to throw up when she passed out today. She states that she sat down before passing out and denies any head injury or other injuries as a result of this. No chest pain, shortness of breath, fevers, abnormal vaginal discharge, leakage of fluid, dysuria, or other concerns. She denies any complications with thus far. Related Data Home Medications Medication Instructions Recorded Confirmed vits [id number] fum 1 tab PO DAILY Supplement 07/15/23 12/01/23 28 mg iron-folic acid 800 mcg tablet (Classic ) albuterol sulfate 90 mcg/actuation 2 puff inhalation Q6HP PRN 12/01/23 12/01/23 aerosol inhaler (Ventolin HFA) shortness of breath or wheezing pantoprazole 40 mg tablet,delayed 40 mg PO DAILY Acid Reflux 12/01/23 12/01/23 release (Protonix) promethazine 25 mg tablet 25 mg PO Q6HP PRN nausea and 12/01/23 12/01/23 vomiting Allergies Allergy/AdvReac Type Severity Reaction Status Date / Time cinnamon Allergy Mild rash Verified 11/25/23 09:43 [facility] Disclaimer: The information contained in this section may have been updated after the patient was seen, as this information can be updated by other users. Medical History Asthma affecting , antepartum Chronic pelvic pain in female Dysmenorrhea Dyspareunia Eczema Endometriosis Hypokalemia Pyelonephritis affecting in first trimester Tobacco use affecting , antepartum Surgical History Hx of tonsillectomy Hx of wisdom tooth extraction Family History Grandmother Cancer Other Asthma Diabetes Social History Smoking Status: Current every day smoker tobacco type: cigarettes and e-cigarettes alcohol intake: never substance use type: denies use current occupational status: employed Travel in the last 8 weeks: None ROS Obtained: Yes All systems reviewed & no additional complaints except as documented Physical Exam General General appearance: alert and in no apparent distress Head Head exam: atraumatic and normocephalic Eye Eye exam: Present normal appearance, PERRL and EOMI ENT ENT exam: Present normal exam, normal oropharynx, mucous membranes moist and normal external ear exam Neck Neck exam: Present normal inspection, full ROM and trachea midline; Absent tenderness Chest Chest inspection: Present normal inspection and symmetric chest wall rise; Absent tenderness Respiratory Respiratory exam: Present normal lung sounds bilaterally; Absent respiratory distress, wheezes, stridor or accessory muscle use Cardiovascular Cardiovascular exam: Present regular rate and normal rhythm Abdominal Exam Abdominal exam: Present soft, tenderness (Lower abdomen) and normal bowel sounds; Absent distention, guarding, rebound or rigidity Extremities Exam Extremities exam: Present normal inspection, full ROM and normal capillary refill; Absent tenderness or edema Back Exam Back exam: Present normal inspection and full ROM; Absent tenderness Neurological Exam Neurological exam: Present alert, oriented X3, CN II-XII intact and normal gait; Absent motor sensory deficit Psychiatric Psychiatric exam: Present normal affect and normal mood Skin Skin exam: Present warm and dry Medical Decision Making Medical Records Medical records reviewed: Yes I reviewed the patient's medical records. Ez Inquiry Pt receiving controlled substance: No Vital Signs: 12/01/23 11:16 12/01/23 11:30 12/01/23 12:00 Temperature 98.6 F Temperature Source Oral Pulse Rate 104 H 107 H Pulse Rate [Left Radial] 103 H Respiratory Rate 16 Blood Pressure 104/62 L 110/77 Blood Pressure [Right Arm] 119/69 Blood Pressure Mean 76 86 Blood Pressure Mean [Right Arm] 85 Blood Pressure Source [Right Arm] Automatic Cuff Blood Pressure Position [Right Arm] Sitting 02 Sat by Pulse Oximetry 96 96 96 Oxygen Delivery Method Room Air 12/01/23 12:30 12/01/23 12:48 Temperature 98.2 F Temperature Source Oral Pulse Rate 98 H 97 H Pulse Rate [Left Radial] Respiratory Rate 16 Blood Pressure 109/68 L 109/68 L Blood Pressure [Right Arm] Blood Pressure Mean Blood Pressure Mean [Right Arm] Blood Pressure Source [Right Arm] Blood Pressure Position [Right Arm] 02 Sat by Pulse Oximetry 95 Oxygen Delivery Method Room Air Room Air Lab Data Lab results reviewed: Yes I reviewed the patient's lab results. Lab Results 12/01/23 11:16: WBC 13.2 H, RBC 3.69 L, Hgb 11.4 L, Hct 32.8 L, MCV 88.7, MCH 30.9, MCHC 34.8, RDW 13.0, Plt Count 251, MPV 9.4, Neut % (Auto) 74.9, Lymph % (Auto) 18.0, [place] % (Auto) 5.6, Eos % (Auto) 0.9, Baso % (Auto) 0.5, Neut # (Auto) 9.9 H, Lymph # (Auto) 2.4, [place] # (Auto) 0.7, Eos # (Auto) 0.1, Baso # (Auto) 0.1, Sodium 135 L, Potassium 3.7, Chloride 109 H, Carbon Dioxide 20 L, Anion Gap 9.7, BUN 7, Creatinine 0.40 L, Estimated Creat Clear 237, Estimated GFR 200, Est GFR ( Amer) 242, Glucose 103 H, Calcium 8.7, Total Bilirubin 0.3, AST 25, ALT 14, Alkaline Phosphatase 116, Total Protein 6.1 L, Albumin 3.2 L, Globulin 2.9, Albumin/Globulin Ratio 1.1 12/01/23 12:02: Urine Color Yellow, Urine Appearance Sl cloudy, Urine pH 8.5, Ur Specific [place] 1.020, Urine Protein Negative, Urine Glucose (UA) Negative, Urine Ketones Negative, Urine Blood Negative, Urine Nitrate Negative, Urine Bilirubin Negative, Urine Urobilinogen 1.0, Ur Leukocyte Esterase Trace, Urine RBC None, Urine WBC Occasional, Ur Squamous Epith Cells 5-10, Urine Bacteria 4+ 12/01/23 11:16 12/01/23 11:16 Orders (Tests/Meds): ED MEDICATIONS Discontinued Medications Generic Name Dose Route Start Last Admin Trade Name Freq PRN Reason Stop Dose Admin Acetaminophen 1,000 mg 12/01/23 12:00 12/01/23 12:06 Acetaminophen 1,000mg/100ml Vial IV 12/01/23 12:01 1,000 mg ONCE ONE Administration Lactated Ringer's 1,000 mls @ 999 mls/hr 12/01/23 12:00 12/01/23 12:06 Lactated Ringer's 1000 Ml Bag IV 12/01/23 13:00 999 mls/hr .Q1H1M ONE Administration Ondansetron HCl 4 mg 12/01/23 12:00 12/01/23 12:06 Ondansetron 4mg/2ml Vial IV 12/01/23 12:01 4 mg ONCE ONE Administration ORDERS Category Date Time Status CMP [Comprehensive Metabolic Panel] Stat Lab 12/01/23 11:16 Completed Complete Blood Count Auto Diff Stat Lab 12/01/23 11:16 Completed Urinalysis and Microscopic Stat Lab 12/01/23 12:02 Completed Urine Culture Stat Micro 12/01/23 12:02 Received ECG initial [place] Routine Y 12/01/23 12:13 Completed ECG Data Tracing #1: I reviewed this ECG and interpreted as documented below: Normal sinus rhythm with a ventricular rate of [address] changes concerning for ischemia. Normal axis and intervals. ECG initial impression date: 12/01/23 ECG initial impression time: 12:14 Medical Decision Narrative: In summary, this patient is a 23-year-old female presenting to the Emergency Department for evaluation of lower abdominal pain in the setting of . She had a syncopal episode today in the setting of nausea and abdominal pain. She is 31 weeks gestational age. Differential diagnoses considered include but are not limited to placental abruption, ovarian cyst, constipation, gastroenteritis, colitis. Ruling out the most morbid conditions drove assessment. On exam, the patient is well-appearing. Abdominal exam is benign with only mild lower abdominal tenderness. Workup included CBC, CMP, and EKG. These do not demonstrate any acutely concerning abnormalities. IV fluid resuscitation was initiated with a bolus of IV fluids as well as IV acetaminophen and Zofran for symptomatic improvement. On reassessment, patient is resting comfortably and has improved heart rate after administration of interventions as above. At this time, I feel she would benefit from further evaluation management from a gynecologic standpoint. I called and had an indirect discussion with Dr. Irene who agreed and advised to send the patient on him to labor and delivery for assessment. Patient was sent up there in stable condition. Critical Care Critical Care Time Critical Care Time: No
[2023-12-01 12:25] LABS: Bacteria,Urine 4+ /lpf; WBC,Urine Occasional #/hpf (0-3)
[2023-12-01 12:30] VITALS: BP 109/68; PULSE 98; O2SAT 95
[2023-12-01 12:48] VITALS: BP 109/68; PULSE 97; RESP 16; TEMP 36.8; O2SAT 98
== END 2023-12-01 12:49 | disposition other institution (70) ==
PROVIDERS: Emergency Provider Emergency Medicine
DX: O99.891 Other specified diseases and conditions complicating pregnancy (principal); O21.9 Vomiting of pregnancy, unspecified; O99.512 Diseases of the respiratory system complicating pregnancy, second trimester; O99.333 Smoking (tobacco) complicating pregnancy, third trimester; R42 Dizziness and giddiness; R10.30 Lower abdominal pain, unspecified; J45.909 Unspecified asthma, uncomplicated; F17.210 Nicotine dependence, cigarettes, uncomplicated; Z3A.31 31 weeks gestation of pregnancy
CPT/HCPCS: 80053; 81001; 85025; 87086; 93005; 96361; 96374; 96375; 99285; J0131; J2405

== ENCOUNTER 2023-12-01 12:52 | Outpatient (CLI) | payer OTHER, MEDICAID, SELFPAY ==
[2023-12-01 13:25] VITALS: BP 107/56; PULSE 89; RESP 16; TEMP 37; O2SAT 100; BMI 23.5
--- NOTE | 2023-12-01 13:31 | P.CONPHA_ITS ---
Pharmacy Intervention Comments: MEDICATION RECONCILIATION COMPLETED ON PATIENT USING EXTERNAL FILL HISTORY FROM PHARMACY AND LIST FROM [facility] OFFICE. -JULIA CROWED
--- NOTE | 2023-12-01 13:31 | HMH.PHAINT1 ---
Pharmacy Intervention Comments: MEDICATION RECONCILIATION COMPLETED ON PATIENT USING EXTERNAL FILL HISTORY FROM PHARMACY AND LIST FROM DIAGNOSTIC CARDIAC SONOGRAPHER OFFICE. -JULIA CROWED
== END 2023-12-01 14:12 | disposition home or self-care (01) ==
LOC: OBOUT 12:53 → OB 13:02
PROVIDERS: PCP Nurse Practitioner Obstetrics & Gynecology; Visit Provider Nurse Practitioner Obstetrics & Gynecology
DX: O26.893 Other specified pregnancy related conditions, third trimester (principal); Z3A.31 31 weeks gestation of pregnancy; R42 Dizziness and giddiness; R53.1 Weakness; R11.0 Nausea
CPT/HCPCS: 59025; G0463

== ENCOUNTER 2023-12-17 13:53 | Outpatient (CLI) | payer OTHER, MEDICAID, SELFPAY ==
--- NOTE | 2023-12-17 13:54 | US_ITS ---
PROCEDURE: US OB BIOPHYSICAL PROFILE CLINICAL INDICATION: SGA COMPARISON: No exams were available for comparison FINDINGS: Transabdominal sonographic images of the uterus were obtained. From her established due date she is 33weeks 3days. The following parameters are obtained: Viable Fetus in the cephalic presentation with a posterior placenta grade 3. Average ultrasound age is 32weeks 4days Estimated weight 1,880g Cervix measures 2.7 cm. Measurements: heart Rate = 149bpm BPD = 33weeks 0 days, 31 percentile HC = 33weeks 0 days, 9 percentile AC = 31weeks 2days, 5 percentile FL = 32weeks 6days, 22 percentile HC/AC is 1.1 FL/BPD is 0.77 FL/AC is 0.23 10 percentile Amniotic fluid index: 11.67cm, MVP 3.18 cm Qualitative AFV:2 Breathing movements: 2 Gross Body Movements: 2 Tone: 2 Biophysical profile score: 8 Doppler evaluation of the umbilical artery: SD ratio: 2.05-2.67 Resistive index: 0.51 No obvious anomalies evident.Kidneys, profile, nasion, diaphragm, bladder, four-chamber heart, three-vessel cord appear normal. IMPRESSION: 1. Viable fetus in the cephalic presentation with a posterior placenta grade 3. 2. The placenta seems mature for this gestational age. 3. The fluid is within normal limits with an amniotic fluid index of 11.67 cm, MVP 3.18 cm. 4. Biophysical profile is 8/8 with good breathing movement and movement seen. 5. Fetus has asymmetric growth restriction with the AC currently 5th percentile, 2 weeks behind. 6. Suggest close follow-up for growth and monitoring. Dictated by: Lance Coley MD 12/17/2023 15:29 Lance Coley MD in [facility] 12/17/2023 15:29
== END 2023-12-17 23:59 ==
LOC: RAD 13:54
PROVIDERS: PCP Obstetrics & Gynecology; Visit Provider Obstetrics & Gynecology
DX: O26.843 Uterine size-date discrepancy, third trimester (principal); Z3A.33 33 weeks gestation of pregnancy
CPT/HCPCS: 76816; 76819; 76820

== ENCOUNTER 2023-12-23 10:12 | Outpatient (CLI) | payer OTHER, MEDICAID, SELFPAY ==
[2023-12-23 10:50] LABS: Basophils # 0.1 K/mm3 (0-0.2); Basophils % 1.2 % (0.1-2.0); Eosinophils # 0.1 K/mm3 (0.0-0.4); Eosinophils % 0.5 % (0.1-12.0); Hematocrit 34.8 % (37.0-47.0); Hemoglobin 11.6 g/dL (12.2-16.2); Lymphocytes % 34.1 % (10-50); Mean Corpuscular HGB Conc 33.3 g/dL (31.8-35.4); Mean Corpuscular Hemoglobin 29.3 pg (27.0-31.2); Mean Corpuscular Volume 87.8 fl (81-99); Mean Platelet Volume 9.5 fl (7.4-10.4); Monocytes # 0.4 K/mm3 (0.1-1.0); Monocytes % 3.7 % (1.7-9.3); Neutrophils # 7.1 K/mm3 (1.8-7.8); Neutrophils % 60.6 % (37.0-80.0); Platelet Count 198 K/mm3 (142-424); Red Blood Count 3.97 M/mm3 (4.20-5.40); Red Cell Distribution Width 13.9 % (11.5-17.5); White Blood Count 11.8 K/mm3 (4.8-10.8)
[2023-12-23 11:36] LABS: Chloride 111 mmol/L (98-107); Sodium 134 mmol/L (136-145)
[2023-12-23 11:37] LABS: Potassium 3.9 mmoL/L (3.5-5.1)
[2023-12-23 11:39] LABS: Alanine Aminotransferase 24 U/L (12-78); Albumin/Globulin Ratio 1.1 (1.1-1.8); Alkaline Phosphatase 186 U/L (38-126); Anion Gap 0.9 mEq/L (5-15); Aspartate Amino Transferase 39 U/L (14-36); Bilirubin,Total 0.7 mg/dl (0.2-1.3); Blood Urea Nitrogen 3 mg/dl (7-17); Carbon Dioxide 26 mmol/L (22.0-30.0); Estimated Glomerular Filt Rate 154 ml/min (>60); GFR (African American) 187 ML/MIN (>60); Globulin 2.7 g/dL (1.3-3.2); Total Protein,Serum 5.7 g/dl (6.3-8.2)
[2023-12-23 11:40] LABS: Calcium 8.6 mg/dl (8.4-10.2); Glucose 95 mg/dl (74-100)
[2023-12-23 13:21] LABS: Uric Acid 4.1 mg/dl (2.5-6.2)
== END 2023-12-23 23:59 ==
LOC: LAB 10:13
PROVIDERS: PCP Nurse Practitioner Family; Visit Provider Obstetrics & Gynecology
DX: O99.713 Diseases of the skin and subcutaneous tissue complicating pregnancy, third trimester (principal); Z3A.34 34 weeks gestation of pregnancy; L29.9 Pruritus, unspecified
CPT/HCPCS: 36415; 80053; 84550; 85025

== ENCOUNTER 2023-12-26 15:50 | Outpatient (CLI) | payer OTHER, MEDICAID, SELFPAY ==
[2023-12-26 15:59] VITALS: BMI 23.6
[2023-12-26 16:08] VITALS: BP 122/68; PULSE 113; RESP 16; TEMP 37.1; O2SAT 97; BMI 23.6
== END 2023-12-26 16:45 | disposition home or self-care (01) ==
LOC: OBOUT 15:51 → OB 15:52
PROVIDERS: PCP Nurse Practitioner Family; Visit Provider Obstetrics & Gynecology
DX: O26.893 Other specified pregnancy related conditions, third trimester (principal); Z3A.34 34 weeks gestation of pregnancy
CPT/HCPCS: 59025; G0463

== ENCOUNTER 2023-12-27 08:44 | Outpatient (CLI) | payer OTHER, MEDICAID, SELFPAY ==
[2023-12-30 10:47] LABS: Bile Acids 3.3
== END 2023-12-27 23:59 ==
LOC: LAB 08:46
PROVIDERS: PCP Nurse Practitioner Family; Visit Provider Obstetrics & Gynecology
DX: O36.5930 Maternal care for other known or suspected poor fetal growth, third trimester, not applicable or unspecified (principal); O26.893 Other specified pregnancy related conditions, third trimester; R19.7 Diarrhea, unspecified
CPT/HCPCS: 82239

== ENCOUNTER 2023-12-29 09:50 | Outpatient (CLI) | payer OTHER, SELFPAY, MEDICAID ==
[2023-12-29 10:38] LABS: Appearance,Urine Clear (Clear); Bacteria,Urine 1+ /lpf; Bilirubin,Urine Negative (Negative); Blood, Urine Negative (Negative); Color,Urine Yellow (Yellow); Glucose,Urine (UA) Negative (Negative); Ketones,Urine Negative (Negative); Leukocyte Esterase,Urine 1+ (Negative); Microscopic, Urine URINE MICROSCOPIC (MICROSCOPIC); Nitrate,Urine Negative (Negative); PH,Urine 7.5 (5.0-8.5); Protein,Urine Negative (Negative); Urobilinogen,Urine 0.2 EU/dl (0.2); WBC,Urine Occasional #/hpf (0-3)
== END 2023-12-29 23:59 ==
PROVIDERS: Visit Provider Obstetrics & Gynecology
DX: O26.893 Other specified pregnancy related conditions, third trimester (principal); Z3A.34 34 weeks gestation of pregnancy
CPT/HCPCS: 81001; 87086

== ENCOUNTER 2023-12-30 16:32 | Outpatient (CLI) | payer OTHER, MEDICAID, SELFPAY | END 2023-12-30 23:59 | LOC: LAB.DROPOF 16:32 | PROVIDERS: PCP Obstetrics & Gynecology; Visit Provider Obstetrics & Gynecology | DX: O36.5930 Maternal care for other known or suspected poor fetal growth, third trimester, not applicable or unspecified (principal); O99.713 Diseases of the skin and subcutaneous tissue complicating pregnancy, third trimester | CPT/HCPCS: 86403 ==

== ENCOUNTER 2024-01-02 16:11 | Outpatient (CLI) | payer OTHER, MEDICAID, SELFPAY ==
[2024-01-02 16:43] VITALS: BMI 23.9
[2024-01-02] MEDS: LACTATED RINGERS 1000ML 1,000 ML 999 ML IV ×2 (16:50→17:47)
[2024-01-02 17:25] VITALS: BP 111/71; PULSE 117; RESP 18; TEMP 36.8; O2SAT 100; BMI 23.9
[2024-01-02 17:32] LABS: Microscopic, Urine URINE MICROSCOPIC (MICROSCOPIC)
[2024-01-02 17:38] LABS: Appearance,Urine CLEAR (Clear); Blood, Urine Negative (Negative); Color,Urine YELLOW (Yellow); Glucose,Urine (UA) Negative (Negative); Ketones,Urine TRACE (Negative); Leukocyte Esterase,Urine Negative (Negative); Nitrate,Urine Negative (Negative); PH,Urine 6.5 (5.0-8.5); Protein,Urine TRACE (Negative); Specific Gravity, Urine >= 1.030 (1.005-1.030)
[2024-01-02 17:41] LABS: Bilirubin,Urine 1+ (Negative)
[2024-01-02 17:57] LABS: Benzodiazepines Screen,Urine Negative ng/ml (<200)
[2024-01-02 17:59] LABS: Barbiturates Screen,Urine Negative ng/ml (<200)
[2024-01-02 18:00] LABS: Bacteria,Urine 1+ /lpf; WBC,Urine Occasional #/hpf (0-3)
[2024-01-02 18:01] LABS: Cannabinoid Screen,Urine Negative ng/ml (<50)
[2024-01-02 18:06] LABS: Amphetamine/Metha Screen,Urine Negative ng/ml (<1000); Methadone Screen,Urine Negative ng/ml (<300); Opiate Screen,Urine Negative ng/ml (<300); Phencyclidine Screen,Urine Negative ng/ml (<25)
[2024-01-02 18:23] LABS: Cocaine Screen,Urine Negative ng/ml (<300)
== END 2024-01-02 18:55 | disposition home or self-care (01) ==
LOC: OBOUT 16:13 → OB 16:15
PROVIDERS: PCP Nurse Practitioner Family; Visit Provider Obstetrics & Gynecology
DX: O26.893 Other specified pregnancy related conditions, third trimester (principal); Z3A.35 35 weeks gestation of pregnancy
CPT/HCPCS: 59025; 80307; 81001; 96365; 96366; G0463

== ENCOUNTER 2024-01-08 12:54 | Outpatient (CLI) | payer OTHER, MEDICAID, SELFPAY ==
--- NOTE | 2024-01-08 12:54 | US_ITS ---
PROCEDURE: US OB BIOPHYSICAL PROFILE CLINICAL INDICATION: US OB BPP/Growth with GISSELLE and SD Ratio-IUGR COMPARISON: US US OB /MATERNAL DETAIL from 09/15/2023 US US OB BIOPHYSICAL PROFILE from 12/17/2023 FINDINGS: Transabdominal sonographic images of the uterus were obtained. From her established due date she is 36weeks 4days. The following parameters are obtained: Viable Fetus in the cephalic presentation with a posterior placenta grade 3. Average ultrasound age is 34weeks 6days Estimated weight 2,487g, 5 lb 8 oz. Cervix measures 2.9 cm. Measurements: heart Rate = 158bpm BPD = 34weeks 4days, 10 percentile HC = 34weeks 3days, less than 2nd percentile AC = 34weeks 1day, 6 percentile FL = 35weeks 6days, 29 percentile HC/AC is 1.02 FL/BPD is 0.82 FL/AC is 0.23 12 percentile Amniotic fluid index: 12.59cm, MVP 4.71 cm. Qualitative AFV:2 Breathing movements: 2 Gross Body Movements: 2 Tone: 2 Biophysical profile score: 8 Doppler evaluation of the umbilical artery: SD ratio: 2.50 Resistive index: 0.6 No obvious anomalies evident.Kidneys, bladder, stomach, four-chamber heart, three-vessel cord appear normal. IMPRESSION: 1. Viable fetus in the cephalic presentation with a posterior placenta grade 3. 2. The fluid is within normal limits with an amniotic fluid index of 12.59 cm, MVP 4.71 cm. 3. Biophysical profile is 8/8 with good breathing movement and movement seen. 4. SD ratio is normal at 2.50. 5. There has been good interval growth with the fetus currently 12 percentile. The fetus is symmetrically small. Dictated by: Lance Coley MD 01/09/2024 10:39 Lance Coley MD in [facility] 01/09/2024 10:39
== END 2024-01-08 23:59 ==
LOC: RAD 12:54
PROVIDERS: PCP Nurse Practitioner Family; Visit Provider Obstetrics & Gynecology
DX: O26.843 Uterine size-date discrepancy, third trimester (principal); O99.333 Smoking (tobacco) complicating pregnancy, third trimester; O36.5930 Maternal care for other known or suspected poor fetal growth, third trimester, not applicable or unspecified; Z3A.36 36 weeks gestation of pregnancy
CPT/HCPCS: 76816; 76819; 76820

== ENCOUNTER 2024-01-09 16:09 | Outpatient (CLI) | payer OTHER, MEDICAID, SELFPAY ==
[2024-01-09 16:51] VITALS: BMI 24.3
[2024-01-09 17:00] LABS: Microscopic, Urine URINE MICROSCOPIC (MICROSCOPIC)
[2024-01-09 17:04] VITALS: BP 122/73; PULSE 105; RESP 18; TEMP 37.2; O2SAT 98; BMI 24.3
[2024-01-09 17:06] LABS: Appearance,Urine CLEAR (Clear); Bilirubin,Urine Negative (Negative); Blood, Urine Negative (Negative); Color,Urine YELLOW (Yellow); Glucose,Urine (UA) Negative (Negative); Ketones,Urine Negative (Negative); Leukocyte Esterase,Urine 1+ (Negative); Nitrate,Urine Negative (Negative); Protein,Urine Negative (Negative); Specific Gravity, Urine 1.015 (1.005-1.030)
[2024-01-09 17:19] LABS: Barbiturates Screen,Urine Negative ng/ml (<200); Benzodiazepines Screen,Urine Negative ng/ml (<200)
[2024-01-09 17:20] LABS: Amphetamine/Metha Screen,Urine Negative ng/ml (<1000)
[2024-01-09 17:21] LABS: Cannabinoid Screen,Urine Negative ng/ml (<50); Methadone Screen,Urine Negative ng/ml (<300)
[2024-01-09 17:22] LABS: Cocaine Screen,Urine Negative ng/ml (<300)
[2024-01-09 17:23] LABS: Opiate Screen,Urine Negative ng/ml (<300); Phencyclidine Screen,Urine Negative ng/ml (<25)
[2024-01-09 17:24] LABS: Bacteria,Urine 2+ /lpf; Squamous Epithelial Cell,Urine Occasional #/hpf (0-5)
== END 2024-01-09 17:20 | disposition home or self-care (01) ==
LOC: OBOUT 16:10 → OB 16:10
PROVIDERS: PCP Nurse Practitioner Family; Visit Provider Obstetrics & Gynecology
DX: O26.893 Other specified pregnancy related conditions, third trimester (principal)
CPT/HCPCS: 80307; 81001; 87086; G0463

== ENCOUNTER 2024-01-11 14:51 | Inpatient (IN) | payer OTHER, MEDICAID, SELFPAY ==
[2024-01-11 14:53] VITALS: BMI 24.3
[2024-01-11 15:48] LABS: Microscopic, Urine URINE MICROSCOPIC (MICROSCOPIC)
[2024-01-11] MEDS: LACTATED RINGERS 1000ML 1,000 ML 250 ML IV (15:53)
[2024-01-11] MEDS: miSOPROStol 100MCG TABLET 50 MCG VG ×2 (15:54→22:00)
[2024-01-11] MEDS: DEXTROSE 5%-LACTATED RINGERS 1,000 ML 125 ML IV (15:54)
[2024-01-11 15:57] LABS: Basophils # 0.2 K/mm3 (0-0.2); Basophils % 1.3 % (0.1-2.0); Eosinophils # 0.1 K/mm3 (0.0-0.4); Eosinophils % 0.6 % (0.1-12.0); Hematocrit 34.2 % (37.0-47.0); Hemoglobin 11.4 g/dL (12.2-16.2); Lymphocytes % 30.7 % (10-50); Mean Corpuscular HGB Conc 33.2 g/dL (31.8-35.4); Mean Corpuscular Hemoglobin 29.1 pg (27.0-31.2); Mean Corpuscular Volume 87.8 fl (81-99); Mean Platelet Volume 8.8 fl (7.4-10.4); Monocytes # 0.7 K/mm3 (0.1-1.0); Monocytes % 5.3 % (1.7-9.3); Neutrophils % 62.1 % (37.0-80.0); Platelet Count 321 K/mm3 (142-424); White Blood Count 12.9 K/mm3 (4.8-10.8)
[2024-01-11 16:05] LABS: Appearance,Urine CLEAR (Clear); Bilirubin,Urine Negative (Negative); Blood, Urine Negative (Negative); Color,Urine YELLOW (Yellow); Glucose,Urine (UA) Negative (Negative); Ketones,Urine Negative (Negative); Leukocyte Esterase,Urine 1+ (Negative); Nitrate,Urine Negative (Negative); Protein,Urine Negative (Negative); Urobilinogen,Urine 0.2 EU/dl (0.2)
[2024-01-11 16:09] VITALS: BP 155/72; PULSE 112; RESP 18; TEMP 36.9; O2SAT 99; BMI 24.3
[2024-01-11 16:18] LABS: Barbiturates Screen,Urine Negative ng/ml (<200); Benzodiazepines Screen,Urine Negative ng/ml (<200)
[2024-01-11 16:19] LABS: Amphetamine/Metha Screen,Urine Negative ng/ml (<1000); WBC,Urine Occasional #/hpf (0-3)
[2024-01-11 16:20] LABS: Cannabinoid Screen,Urine Negative ng/ml (<50); Cocaine Screen,Urine Negative ng/ml (<300)
[2024-01-11 16:21] LABS: Methadone Screen,Urine Negative ng/ml (<300); Opiate Screen,Urine Negative ng/ml (<300)
[2024-01-11 16:22] LABS: Phencyclidine Screen,Urine Negative ng/ml (<25)
[2024-01-11 19:24] VITALS: BP 101/57; PULSE 74; RESP 17; TEMP 36.8; O2SAT 98
[2024-01-11] MEDS: BUTORPHANOL TARTRATE 2 MG/ML VIAL 1 MG IV (21:29)
[2024-01-12] MEDS: BUTORPHANOL TARTRATE 2 MG/ML VIAL 1 MG IV (00:08)
[2024-01-12] MEDS: LACTATED RINGERS 1000ML 1,000 ML 250 ML IV (01:51)
[2024-01-12] MEDS: OXYTOCIN/RINGERS LACTATE 30 UNITS/500 ML BAG 40 UNITS IV (02:35)
--- NOTE | 2024-01-12 02:37 | P.PNANES_ITS ---
[facility] Disclaimer: The information contained in this section may have been updated after the patient was seen, as this information can be updated by other users. Medical History Asthma affecting , antepartum Asymmetric IUGR affecting , antepartum Chronic pelvic pain in female Dysmenorrhea Dyspareunia Eczema Endometriosis Hypokalemia Pruritus of Pyelonephritis affecting in first trimester Tobacco use affecting , antepartum Uterine size-date discrepancy in third trimester Surgical History Hx of tonsillectomy Hx of wisdom tooth extraction Family History Grandmother Cancer breast Other Asthma Diabetes Social History (Updated 01/11/24 @ 16:15 by Gavin Ventura RN) Smoking Status: Current every day smoker tobacco type: cigarettes and e- cigarettes alcohol intake: never substance use type: denies use current occupational status: employed Travel in the last 8 weeks: None [facility] Anesthesia Checklist Patient Identification Patient Identification: Arm Band and Verbal (Name & ) Structural Data Admitted From: Inpatient Planned Operative Procedure/s: Labor epidural Consent for Planned Operative Procedure(s) Verified: Yes Verified Documents: Surgical Consent and History and Physical NPO Status Verified Time NPO: 20:00 Chart Verification Results Verified: CBC Additional verifications Patient : Yes Anesthesia Reactions: No Cardiovascular Assessment Heart Sounds: S1 & S2 Pulse Rhythm: Irregular Peripheral Edema: No Airway Assessment Mallampati Score:: Class II C-Spine Mobility Assessed: Yes (FROM) TMJ Mobility Assessed: Yes Dentition: Good Dentition (Nothing loose per pt.) Neurological Assessment Level of Consciousness: Awake, Alert, Appropriate and Restless Hx Seizures: No Numbness or tingling in extremities: No Anesthesia Plan Anesthesia Risk discussed: Yes Anesthesia Plan: Verified ASA Class: II Anesthesia Type: Epidural Preoperative Comments Pre-Operative Comments: Called at 01:42 for labor epidural. Arrived on floor 02:08. In pt.'s room 2:20. Pt. lying in bed, writhing in severe pain. Unable to sit up straight, unable to remain still, unable to follow commands due to pain. Baby crowned w/delivery imminent. Baby delivered @ 2:30. Epidural not placed.
--- NOTE | 2024-01-12 02:59 | EXP.DN ---
Delivery Note Delivery Date:: 01/12/24 Delivery Time:: 02:30 Anesthesia Type: Epidural Was labor medically induced?: Yes Induction method: per misoprostol protocol Gestational age (weeks): 37 Infant delivered prior to 39 weeks?: Yes Justification for early elective delivery:: IUGR Infant Gender: Female at 1 minute: 7 at 5 minutes: 9 Delivery Procedure:: She is a 23-year-old 2 para 1 at 37 weeks gestational age who came in for induction of labor for IUGR. She received misoprostol and subsequently progressed to full dilation. She delivered spontaneously a liveborn female child at 2:30 AM on the morning of January 12, 2024. The nurses delivered the baby and physician arrived shortly after delivery. Baby had Apgars of 7 at 1 minute and 9 at 5 minutes. Cord blood was obtained. She received IV oxytocin after delivery and we allowed the oxytocin to contract down the uterus. Then using gentle traction on the cord and countertraction on the fundus of the uterus the placenta delivered at 2:51 AM. The perineum was intact. She has a Rh+ blood, she is rubella immune and was group B streptococcus negative. Estimated blood loss was approximately 100 cc. Placental Delivery Description: Spontaneous
--- NOTE | 2024-01-12 03:07 | P.HP_ITS ---
History of Present Illness *Admission Date: 01/11/24 *Reason for visit:: Intrauterine growth restriction *History of present illness: She is a 23-year-old 2 para 1 at 37 weeks gestational age who has been followed for IUGR. As result of this she was admitted at 37 weeks for induction of labor. She is a smoker. A positive blood Rubella immune GBS negative PFSH PFSH Disclaimer: The information contained in this section may have been updated after the patient was seen, as this information can be updated by other users. Medical History Pruritus of Asymmetric IUGR affecting , antepartum Uterine size-date discrepancy in third trimester Eczema Hypokalemia Pyelonephritis affecting in first trimester Asthma affecting , antepartum Tobacco use affecting , antepartum Dysmenorrhea Dyspareunia Endometriosis Chronic pelvic pain in female Surgical History Hx of wisdom tooth extraction Hx of tonsillectomy Family History Diabetes Cancer Grandmother Asthma Social History Smoking Status: Current every day smoker tobacco type: cigarettes and e- cigarettes alcohol intake: never substance use type: denies use current occupational status: employed Travel in the last 8 weeks: None Review of Systems Review of Systems Review of systems:: pertinent systems reviewed and negative unless documented below Meds Home Medications and Allergies Home Medications Medication Instructions Recorded Confirmed Type vits no.126-ferrous fum 1 tab PO DAILY Supplement 07/15/23 01/11/24 History 28 mg iron-folic acid 800 mcg tablet (Classic ) albuterol sulfate 90 mcg/actuation 2 puff inhalation Q6HP PRN 12/01/23 01/11/24 History aerosol inhaler (Ventolin HFA) shortness of breath or wheezing pantoprazole 40 mg tablet,delayed 40 mg PO DAILY Acid Reflux 12/01/23 01/11/24 History release (Protonix) promethazine 25 mg tablet 25 mg PO Q6HP PRN nausea and 12/01/23 01/11/24 History vomiting hydroxyzine HCl 25 mg tablet 25 mg PO TID PRN itching #30 tabs 12/23/23 01/11/24 Rx New Prescriptions to Start Prescriptions: Allergies Allergy/AdvReac Type Severity Reaction Status Date / Time cinnamon Allergy Mild rash Verified 01/06/24 09:30 Exam Data for Last 24 hours Vital signs and Labs for Last 24 Hours: Temp Pulse Resp BP Pulse Ox O2 Del Method 98.2 F 74 17 101/57 L 98 Room Air 01/11/24 19:24 01/11/24 19:24 01/11/24 19:24 01/11/24 19:24 01/11/24 19:24 01/11/24 19:24 Laboratory Results - last 24 hr 01/11/24 15:00: Urine Color Yellow, Urine Appearance Clear, Urine pH 7.0, Ur Specific [place] 1.010, Urine Protein Negative, Urine Glucose (UA) Negative, Urine Ketones Negative, Urine Blood Negative, Urine Nitrate Negative, Urine Bilirubin Negative, Urine Urobilinogen 0.2, Ur Leukocyte Esterase 1+ A, Urine RBC None, Urine WBC Occasional, Ur Squamous Epith Cells None, Urine Bacteria None, Urine Opiates Screen Negative, Urine Methadone Screen Negative, Ur Barbituates Screen Negative, Ur Phencyclidine Scrn Negative, Ur Amphetamines Screen Negative, U Benzodiazepines Scrn Negative, Urine Cocaine Screen Negative, U Marijuana (THC) Screen Negative 01/11/24 15:38: WBC 12.9 H, RBC 3.90 L, Hgb 11.4 L, Hct 34.2 L, MCV 87.8, MCH 29.1, MCHC 33.2, RDW 15.0, Plt Count 321, MPV 8.8, Neut % (Auto) 62.1, Lymph % (Auto) 30.7, [place] % (Auto) 5.3, Eos % (Auto) 0.6, Baso % (Auto) 1.3, Neut # (Auto) 8.0 H, Lymph # (Auto) 4.0, [place] # (Auto) 0.7, Eos # (Auto) 0.1, Baso # (Auto) 0.2, Blood Type A Positive, Antibody Screen Negative I & O for Last 24 hours: Intake & Output 01/09/24 01/10/24 01/11/24 01/12/24 10:59 10:59 11:59 11:59 Weight 155 lb Constitutional Constitutional: no acute distress *Routine HEENT Exam Head: Present normocephalic Eye: Present EOMI and PERRL ENT: Present mucous membranes moist *Routine Neck Exam Neck: Present supple; Absent lymphadenopathy *Routine Respiratory Exam Respiratory: Present CTA bilaterally *Routine Cardiovascular Exam Cardiovascular: Present RRR *Routine Abdominal Exam Abdominal: Present soft and normoactive bowel sounds; Absent tenderness *Routine Rectal Exam Rectal:: deferred *Routine Genitalia Exam Genitalia:: deferred *Routine Extremities Exam Extremities: Absent cyanosis, clubbing or edema *Routine Skin Exam Skin: Present warm; Absent rash *Routine Neurological Exam Neurological: Present alert and oriented X3 Assessment and Plan *Assessment and plan (1) Asymmetric IUGR affecting , antepartum: Status: Acute Category: Medical Code(s): O36.5990 - Maternal care for other known or suspected poor growth, unspecified trimester, not applicable or unspecified (2) Uterine size-date discrepancy in third trimester: Status: Acute Category: Medical Code(s): O26.843 - Uterine size-date discrepancy, third trimester (3) Normal delivery: Status: Acute Category: Medical Code(s): O80 - Encounter for full-term uncomplicated delivery (4) Tobacco use affecting , antepartum: Status: Acute Category: Medical Code(s): O99.330 - Smoking (tobacco) complicating , unspecified trimester Plan She is admitted with a growth restricted baby for induction of labor and delivery at term.
[2024-01-12] MEDS: ACETAMINOPHEN 500MG TAB 1000 MG PO ×4 (03:41→20:17)
[2024-01-12] MEDS: IBUPROFEN 400 MG TABLET 800 MG PO ×3 (03:41→22:02)
[2024-01-12 08:00] VITALS: BP 110/54; PULSE 88; RESP 18; TEMP 36.6; O2SAT 96
[2024-01-12] MEDS: PRENATAL MULTIVITAMIN W/IRON 1 EACH PO (14:04)
[2024-01-12 18:20] VITALS: BP 109/55; PULSE 77; RESP 18; TEMP 36.7; O2SAT 98
[2024-01-12 20:02] VITALS: BP 123/58; PULSE 89; RESP 17; TEMP 36.8; O2SAT 97
[2024-01-12] MEDS: BENZOCAINE-MENTHOL SPRAY 56GM CAN TP (20:18)
[2024-01-13 03:47] VITALS: BP 101/59; PULSE 78; RESP 17; TEMP 36.6; O2SAT 97
[2024-01-13] MEDS: ACETAMINOPHEN 500MG TAB 1000 MG PO (03:55)
[2024-01-13] MEDS: IBUPROFEN 400 MG TABLET 800 MG PO (05:54)
[2024-01-13 06:41] LABS: Hematocrit 31.6 % (37.0-47.0); Hemoglobin 10.4 g/dL (12.2-16.2)
[2024-01-13 08:12] VITALS: BP 109/70; PULSE 92; RESP 18; TEMP 36.9; O2SAT 98
--- NOTE | 2024-01-13 08:37 | EXP.DC.SUM ---
General Admission date:: 01/11/24 Discharge date: 01/13/24 HPI HPI HPI: PPD # 1 s/p She is feeling well. Breast feeding. Lochia is appropriate. Voiding without difficulty and passing flatus. Tolerating regular diet. No fever/chills, chest pain or shortness of breath. No headaches, vision changes, lightheadedness/dizziness. No lower extremity swelling. Ambulating well ad lamont. Hospital Course Hospital Course Hospital Course: Mrs Ashley Major is a 23-year-old at 37 weeks gestational age who has been followed for IUGR. As result of this she was admitted at 37 weeks for induction of labor. Ultrasound 01/08/24 demonstrated EFW 12 %ile , BPD 10 percentile, HC < 2nd percentile, AC 6th percentile, FL 29th percentile. She is a smoker. She has had good care. GBS negative. She underwent induction of labor with Cytotec. She had a spontaneous vaginal delivery on 01/12/24 at 0230. She delivered a live female baby, Cindy, weighing 5 lb 7 oz. APGARs 7 (1 min), 9 (5 min). EBL 100 mL. She did well . Appropriate lochia. Breast feeding. Voiding without difficulty and passing flatus. Tolerating regular diet. Denies fever/chills, chest pain and shortness of breath. No headaches, dizziness/lightheadedness or vision changes. Vital signs stable, afebrile. Heart regular rate and rhythm. Lungs clear to auscultation. Abdomen soft, nontender. No lower extremity swelling. Ambulating well ad lamont. Normal hospital course. She was discharged to home on POD # 2 with instructions to follow-up in the office in 2 weeks or sooner if needed. Exam Data for Last 24 hours Vital signs and Labs for Last 24 Hours: Temp Pulse Resp BP Pulse Ox O2 Del Method 97.8 F 78 17 101/59 L 97 Room Air 01/13/24 03:47 01/13/24 03:47 01/13/24 03:47 01/13/24 03:47 01/13/24 03:47 01/13/24 03:47 Laboratory Results - last 24 hr 01/13/24 05:29: Hgb 10.4 L, Hct 31.6 L I & O for Last 24 hours: Intake & Output 01/10/24 01/11/24 01/12/24 01/13/24 22:59 23:59 23:59 23:59 Weight Constitutional Constitutional: no acute distress and cooperative *Routine HEENT Exam Head: Present normocephalic and atraumatic Eye: Absent conjunctivae pink ENT: Present mucous membranes moist *Routine Neck Exam Neck: Present full ROM *Routine Respiratory Exam Respiratory: Present CTA bilaterally and normal respiratory effort *Routine Cardiovascular Exam Cardiovascular: Present RRR *Routine Abdominal Exam Abdominal: Present soft; Absent tenderness or distended Comments: Uterine fundus firm and below umbilicus *Routine Rectal Exam Patient deferred: visual exam *Routine Exam Patient deferred: external exam *Routine Extremities Exam Extremities: Present full ROM; Absent edema *Routine Neurological Exam Neurological: Present alert, moving all extremities and normal speech Routine Psychiatric Exam Psychiatric: Present normal affect Results Data Completed and Pending Labs on day of discharge: Labs from last 24 hours 01/13/24 05:29 Hgb 10.4 L Hct 31.6 L DS: Diagnosis Discharge Diagnosis (1) Normal delivery: Status: Acute Code(s): O80 - Encounter for full-term uncomplicated delivery (2) 37 weeks gestation of : Status: Acute Code(s): Z3A.37 - 37 weeks gestation of (3) Asymmetric IUGR affecting , antepartum: Status: Acute Code(s): O36.5990 - Maternal care for other known or suspected poor growth, unspecified trimester, not applicable or unspecified (4) Uterine size-date discrepancy in third trimester: Status: Acute Code(s): O26.843 - Uterine size-date discrepancy, third trimester (5) Tobacco use affecting , antepartum: Status: Acute Code(s): O99.330 - Smoking (tobacco) complicating , unspecified trimester (6) Acute blood loss anemia: Status: Acute Code(s): D62 - Acute posthemorrhagic anemia Meds Home Medications and Allergies Home Medications Medication Instructions Recorded Confirmed Type vits no.126-ferrous fum 1 tab PO DAILY Supplement 07/15/23 01/11/24 History 28 mg iron-folic acid 800 mcg tablet (Classic ) albuterol sulfate 90 mcg/actuation 2 puff inhalation Q6HP PRN 12/01/23 01/11/24 History aerosol inhaler (Ventolin HFA) shortness of breath or wheezing pantoprazole 40 mg tablet,delayed 40 mg PO DAILY Acid Reflux 12/01/23 01/11/24 History release (Protonix) promethazine 25 mg tablet 25 mg PO Q6HP PRN nausea and 12/01/23 01/11/24 History vomiting hydroxyzine HCl 25 mg tablet 25 mg PO TIDP PRN itching 01/12/24 01/12/24 History ibuprofen 800 mg tablet 800 mg PO Q8H PRN pain #20 tabs 01/13/24 Rx New Prescriptions to Start Prescriptions: Liz Zelaya Allergies Allergy/AdvReac Type Severity Reaction Status Date / Time cinnamon Allergy Mild rash Verified 01/06/24 09:30 Discharge Plan Disposition Patient Disposition: Home, Self-Care Condition: Good Discharge Order Discharge Orders: Discharge Order (Routine); Ordered 01/13/24 Ordered By: Liz Mireles Follow up Plan Follow up with: Liz Mireles DO [Staff Physician] - Enter time for follow up Prescriptions/Medication Reconciliation: New ibuprofen 800 mg tablet 800 mg PO Q8H PRN (Reason: pain) Qty: 20 0RF Continued Classic 28 mg iron- 800 mcg tablet 1 tab PO DAILY pantoprazole [Protonix] 40 mg tablet,delayed release (DR/EC) 40 mg PO DAILY promethazine 25 mg tablet 25 mg PO Q6HP PRN (Reason: nausea and vomiting) albuterol sulfate [Ventolin HFA] 90 mcg/actuation HFA aerosol inhaler 2 puff inhalation Q6HP PRN (Reason: shortness of breath or wheezing) hydroxyzine HCl 25 mg tablet 25 mg PO TIDP PRN (Reason: itching) Problem Reconciliation Problems Reviewed?: Yes Patient Discharge Instructions ACTIVITY: Limited activity DIET: continue same diet and regular diet Additional Instructions: Discharge: 1. Take 800 mg Ibuprofen every 8 hours as needed for pain. You can also take 500-1000 mg of Tylenol in between doses, every 6-8 hours. 2. Nothing in the vagina for 6 weeks - no intercourse, douching or tampons. No tub baths/hot tubs or swimming pools 3. Reasons to return to L&D or call On-Call doctor - fever (greater than 100.4) - heavy vaginal bleeding (soaking through 1 pad in less than 2 hours) - vaginal discharge (malodorous and/or purulent) - severe headaches not resolved by medication or rest and leg tenderness/edema 4. depression/blues - Normal to feel anxious/overwhelmed for first 2 weeks - Talk to your doctor if: severe anxiety, trouble bonding with baby, withdrawing from other family members, thoughts of harming yourself or others Liz Mireles DO [facility] [phone] Patient Instructions: Depression, Labor and Delivery, Vaginal , Hemorrhage, DI for Pre-eclampsia Providers Primary Care Provider: Laura Tillman Admit Provider: Lance Coley Attending Provider: Lance Coley
== END 2024-01-13 11:35 | disposition home or self-care (01) | DRG 807 ==
LOC: OBOUT 14:51 → OB 14:51
PROVIDERS: Obstetrics & Gynecology; Admitting Provider Nurse Practitioner Obstetrics & Gynecology; PCP Nurse Practitioner Family; Visit Provider Nurse Practitioner Obstetrics & Gynecology
DX: O99.334 Smoking (tobacco) complicating childbirth (principal); Z37.0 Single live birth; O36.5930 Maternal care for other known or suspected poor fetal growth, third trimester, not applicable or unspecified; Z3A.37 37 weeks gestation of pregnancy; F17.210 Nicotine dependence, cigarettes, uncomplicated; F17.290 Nicotine dependence, other tobacco product, uncomplicated
CPT/HCPCS: 59409; 36415; 59025; 80307; 81001; 85014; 85018; 85025; 86850; 87086

== ENCOUNTER 2024-01-19 10:06 | Outpatient (CLI) | payer OTHER, MEDICAID, SELFPAY ==
[2024-01-19 10:19] LABS: Basophils # 0.2 K/mm3 (0-0.2); Basophils % 1.5 % (0.1-2.0); Eosinophils # 0.3 K/mm3 (0.0-0.4); Eosinophils % 2.8 % (0.1-12.0); Hematocrit 37.5 % (37.0-47.0); Hemoglobin 12.4 g/dL (12.2-16.2); Lymphocytes # 3.6 K/mm3 (0.7-4.5); Lymphocytes % 35.3 % (10-50); Mean Corpuscular Hemoglobin 29.2 pg (27.0-31.2); Mean Corpuscular Volume 88.4 fl (81-99); Mean Platelet Volume 8.2 fl (7.4-10.4); Monocytes # 0.4 K/mm3 (0.1-1.0); Monocytes % 4.1 % (1.7-9.3); Neutrophils # 5.8 K/mm3 (1.8-7.8); Neutrophils % 56.4 % (37.0-80.0); Platelet Count 335 K/mm3 (142-424); Red Blood Count 4.24 M/mm3 (4.20-5.40); Red Cell Distribution Width 15.4 % (11.5-17.5); White Blood Count 10.3 K/mm3 (4.8-10.8)
[2024-01-19 10:53] LABS: Alanine Aminotransferase 19 U/L (12-78); Albumin Level 3.8 g/dl (3.5-5.0); Albumin/Globulin Ratio 1.2 (1.1-1.8); Alkaline Phosphatase 145 U/L (38-126); Amylase 50 U/L (30-110); Anion Gap 8.2 mEq/L (5-15); Aspartate Amino Transferase 32 U/L (14-36); Bilirubin,Total 0.7 mg/dl (0.2-1.3); Blood Urea Nitrogen 8 mg/dl (7-17); Calcium 9.3 mg/dl (8.4-10.2); Carbon Dioxide 23 mmol/L (22.0-30.0); Chloride 110 mmol/L (98-107); Estimated Glomerular Filt Rate 125 ml/min (>60); GFR (African American) 151 ML/MIN (>60); Globulin 3.1 g/dL (1.3-3.2); Glucose 85 mg/dl (74-100); Lipase 67 U/L (23-300); Potassium 4.2 mmoL/L (3.5-5.1); Sodium 137 mmol/L (136-145); Total Protein,Serum 6.9 g/dl (6.3-8.2)
== END 2024-01-19 23:59 ==
PROVIDERS: PCP Nurse Practitioner Family; Visit Provider Obstetrics & Gynecology
DX: R10.31 Right lower quadrant pain (principal)
CPT/HCPCS: 36415; 80053; 82150; 83690; 85025

== ENCOUNTER 2024-02-11 08:44 | Outpatient (CLI) | payer OTHER, MEDICAID, SELFPAY ==
--- NOTE | 2024-02-11 08:59 | MR_ITS ---
FINAL REPORT CLINICAL HISTORY: persistant headache FINDINGS: Multiplanar MR imaging of the brain was performed without contrast. There is motion artifact on many sequences which limits exam sensitivity. There is no evidence of intracranial hemorrhage or mass. The ventricular size is normal. There is no evidence of shift of the midline structures. No area of restricted diffusion is identified. The posterior fossa and brainstem have an unremarkable appearance. Normal major vessel vascular flow voids are seen. IMPRESSION: Unremarkable brain with no focal abnormality identified. Reviewed, Interpreted and Dictated by Seamus Kramer III, MD Transcribed by Amairani Prasad Authenticated and [facility]
== END 2024-02-11 23:59 | disposition home or self-care (01) ==
LOC: RAD 08:57
PROVIDERS: PCP Nurse Practitioner Family; Visit Provider Obstetrics & Gynecology
DX: O90.89 Other complications of the puerperium, not elsewhere classified (principal); R51.9 Headache, unspecified
CPT/HCPCS: 70551

== ENCOUNTER 2024-03-22 18:46 | Emergency (ER) | payer OTHER, MEDICAID, SELFPAY ==
[2024-03-22 18:49] VITALS: BP 128/86; PULSE 89; RESP 13; TEMP 36.9; O2SAT 99; BMI 21.1
--- NOTE | 2024-03-22 18:51 | ED_ITS ---
<Statement entered by Andre Mcbride MD - 03/22/24 21:33> I was consulted by the CASSY, and we discussed the complexity of the problems being addressed. I approved the treatment and management plan for this patient's care in the emergency department, thus performing a substantive portion of the medical decision making. Patient is a G2, P2 via without complication presenting for vaginal bleeding. Patient's workup hematologic labs are nonactionable, transvaginal ultrasound showed small amount of free fluid in the pelvis which no acute intervention is warranted. Patient has no tachycardia, is generally well- appearing. She has follow-up tomorrow with Dr. Gomez and patient is appropriate for discharge. Andre Mcbride MD Discharge Plan Disposition Patient Disposition: Home, Self-Care Condition: Good Prescriptions Prescriptions: No Action Classic 28 mg iron- 800 mcg tablet 1 tab PO DAILY norethindrone (contraceptive) 0.35 mg tablet 0.35 mg PO DAILY Qty: 84 3RF albuterol sulfate [Ventolin HFA] 90 mcg/actuation HFA aerosol inhaler 2 puff inhalation Q6HP PRN (Reason: shortness of breath or wheezing) Referrals Follow up/Referrals: Laura Tillman [Primary Care Provider] - See instructions Activity Restrictions/Add. Instructions Additional Instructions/Restrictions: Please follow-up with your [facility] [facility] as scheduled tomorrow. Please follow-up with your PCP for recheck of your liver enzymes return to the ER for any worsening signs or symptoms as needed. Clinical Impressions Clinical Impression: DUB (dysfunctional uterine bleeding), Transaminitis Discharge ED Provider: Andre Mcbride General Adult HPI General Chief complaint: Vaginal Bleeding Stated complaint: vaginal bleeding for 5 weeks Time Seen by Provider: 03/22/24 18:51 History of Present Illness HPI narrative: Patient presents for abnormal vaginal bleeding. Patient is 6 weeks and had had a follow-up on February 23, 2024 after which vaginal bleeding started same day. Patient thought that this was reinitiation of her. However it has been going on since. She is now utilizing 2 pads an hour, and feels weak sometimes lightheaded along with diffuse nonspecific flank pain and abdominal pain. Patient does have a history of endometriosis. Patient has not followed up with her [employer]IG[employer] CO[employer] for this problem yet. She denies chest pain shortness of breath fever chills nausea vomiting diarrhea hemoptysis hematochezia melena hematemesis hematuria. Related Data Home Medications Medication Instructions Recorded Confirmed vits no.126-ferrous fum 1 tab PO DAILY Supplement 07/15/23 02/23/24 28 mg iron-folic acid 800 mcg tablet (Classic ) albuterol sulfate 90 mcg/actuation 2 puff inhalation Q6HP PRN 12/01/23 02/23/24 aerosol inhaler (Ventolin HFA) shortness of breath or wheezing Previous Rx's Medication Instructions Recorded norethindrone (contraceptive) 0.35 0.35 mg PO DAILY #84 tabs 02/23/24 mg tablet Allergies Allergy/AdvReac Type Severity Reaction Status Date / Time cinnamon Allergy Mild rash Verified 02/23/24 13:12 [facility] Disclaimer: The information contained in this section may have been updated after the patient was seen, as this information can be updated by other users. Medical History (Updated 03/22/24 @ 21:19 by GENE Wilson) Contraception management Syncope Panic attack Acute blood loss anemia Eczema Dysmenorrhea Dyspareunia Endometriosis Chronic pelvic pain in female Surgical History Hx of wisdom tooth extraction Hx of tonsillectomy Family History Grandmother Cancer breast Other Asthma Diabetes Social History Smoking Status: Current every day smoker tobacco type: cigarettes and e- cigarettes alcohol intake: never substance use type: denies use current occupational status: employed Travel in the last 8 weeks: None ROS Obtained: Yes Systems reviewed as appropriate & no additional complaints except as documented Physical Exam General General appearance: alert and in no apparent distress Respiratory Respiratory exam: Present normal lung sounds bilaterally Cardiovascular Cardiovascular exam: Present regular rate Abdominal Exam Abdominal exam: Present soft, tenderness (Very mild diffuse to palpation) and normal bowel sounds; Absent distention, guarding, rebound or rigidity Back Exam Back exam: Present normal inspection and full ROM; Absent CVA tenderness (R) or CVA tenderness (L) Neurological Exam Neurological exam: Present alert and oriented X3 Medical Decision Making Medical Records Medical records reviewed: Yes I reviewed the patient's medical records. Ez Inquiry Pt receiving controlled substance: No Vital Signs: 03/22/24 18:49 03/22/24 19:00 03/22/24 19:30 Temperature 98.4 F Temperature Source Oral Pulse Rate 87 77 Pulse Rate [Left Radial] 89 Respiratory Rate 13 Blood Pressure 107/79 L 109/71 L Blood Pressure [Right Arm] 128/86 Blood Pressure Mean 88 79 Blood Pressure Mean [Right Arm] 100 02 Sat by Pulse Oximetry 99 98 99 Oxygen Delivery Method Room Air Lab Data Lab results reviewed: Yes I reviewed the patient's lab results. Lab Results 03/22/24 18:57: Urine Color Yellow, Urine Appearance Sl cloudy, Urine pH 6.0, Ur Specific [place] 1.025, Urine Protein Negative, Urine Glucose (UA) Negative, Urine Ketones Trace, Urine Blood 3+, Urine Nitrate Negative, Urine Bilirubin Negative, Urine Urobilinogen 0.2, Ur Leukocyte Esterase Trace, Urine RBC 20-50, Urine WBC Occasional, Ur Squamous Epith Cells 3-5, Urine Bacteria Trace 03/22/24 19:19: WBC 7.3, RBC 4.62, Hgb 12.3, Hct 37.5, MCV 81.3, MCH 26.7 L, MCHC 32.9, RDW 15.7, Plt Count 209, MPV 8.1, Neut % (Auto) 40.8, Lymph % (Auto) 51.9 H, [place] % (Auto) 4.9, Eos % (Auto) 1.3, Baso % (Auto) 1.2, Neut # (Auto) 3.0, Lymph # (Auto) 3.8, [place] # (Auto) 0.4, Eos # (Auto) 0.1, Baso # (Auto) 0.1, Total Counted 100, Neutrophils % (Manual) 43, Lymphocytes % (Manual) 52 H, Monocytes % (Manual) 2, Eosinophils % (Manual) 3, Platelet Estimate Normal, RBC Morphology Normal, PT 11.3, INR 1.05, Sodium 137, Potassium 3.5, Chloride 107, Carbon Dioxide 22, Anion Gap 11.5, BUN 10, Creatinine 0.70, Estimated Creat Clear 122, Estimated GFR 105, Est GFR ( Amer) 127, Glucose 85, Calcium 9.2, Magnesium 1.8, Total Bilirubin 0.7, AST 74 H, ALT 79 H, Alkaline Phosphatase 67, Total Protein 7.3, Albumin 4.3, Globulin 3.0, Albumin/Globulin Ratio 1.4, HCG, Quant < 2, Blood Type A Positive, Antibody Screen Negative 03/22/24 19:19 03/22/24 19:19 Orders (Tests/Meds): ED MEDICATIONS Discontinued Medications Generic Name Dose Route Start Last Admin Trade Name Freq PRN Reason Stop Dose Admin Acetaminophen 1,000 mg 03/22/24 19:09 03/22/24 20:22 Acetaminophen 1,000mg/100ml Vial IV 03/22/24 19:10 1,000 mg ONCE ONE Administration Lactated Ringer's 1,000 mls @ 999 mls/hr 03/22/24 19:02 03/22/24 20:18 Lactated Ringer's 1000 Ml Bag IV 03/22/24 20:02 999 mls/hr .Q1H1M ONE Administration Methocarbamol 500 mg 03/22/24 21:00 Methocarbamol 500mg Tablet PO 04/21/24 20:59 BID RAFAEL Methocarbamol 500 mg 03/22/24 20:16 03/22/24 20:21 Methocarbamol 500mg Tablet PO 03/22/24 20:17 500 mg ONCE ONE Administration Ondansetron HCl 4 mg 03/22/24 19:02 03/22/24 20:20 Ondansetron 4mg/2ml Vial IV 03/22/24 19:03 4 mg ONCE ONE Administration ORDERS Category Date Time Status Type and Screen Stat BBK 03/22/24 19:19 Completed US transvaginal Stat Exams 03/22/24 19:02 Completed CBC w/Auto Diff [Complete Blood Count Auto Diff] Stat Lab 03/22/24 19:19 Completed CMP [Comprehensive Metabolic Panel] Stat Lab 03/22/24 19:19 Completed HCG,Quantitative Stat Lab 03/22/24 19:19 Completed INR [Prothrombin Time INR] Stat Lab 03/22/24 19:19 Completed Magnesium Stat Lab 03/22/24 19:19 Completed UA [Urinalysis and Microscopic] Stat Lab 03/22/24 18:57 Completed EKG Request [ECG Request] Stat Y 03/22/24 19:10 Ordered Medical Decision Narrative: In summary patient is a 3-year-old female who presents to the emergency department for evaluation of dysfunctional uterine bleeding. Patient is hemodynamically stable upon arrival, afebrile. Physical exam is remarkable for diffuse very mild abdominal tenderness to palpation without rebound guarding or rigidity.. Differential diagnosis includes dysfunctional uterine bleeding versus retained products of conception etc. Initial workup will be conducted with type and screen hematologic labs urinalysis transvaginal ultrasound. Initial interventions include fluid bolus Tylenol. Initial workup reviewed by me shows that her hematologic labs are nonactionable but does have slightly elevated AST and ALT. Radiologist read on her transvaginal ultrasound is no evidence of retained products of conception and small amount of free fluid suggestive of ruptured ovarian cyst/follicle. Upon repeat evaluation patient reports feeling better after intervention. Given this patient is appropriate for discharge and follow-up with [facility] at her appointment tomorrow and follow-up with her PCP for further evaluation and recheck of her elevated liver enzymes. Critical Care Critical Care Time Critical Care Time: No
[2024-03-22 19:00] VITALS: BP 107/79; PULSE 87; O2SAT 98
[2024-03-22 19:01] LABS: Microscopic, Urine URINE MICROSCOPIC (MICROSCOPIC)
--- NOTE | 2024-03-22 19:02 | US_ITS ---
PROCEDURE INFORMATION: Exam: US Pelvis, Transvaginal, US Duplex Artery and Vein of the Reproductive Organs, Complete Exam date and time: 03/22/2024 7:43 PM Age: 23 years old Clinical indication: Other: Bleeding; Additional info: bleeding, rule out retained products of LABS AND CLINICAL REPORTS: Last menstrual period start date: 02/21/2024 TECHNIQUE: Imaging protocol: Real-time transvaginal pelvic ultrasound with image documentation. Transvaginal imaging was used for better evaluation of the endometrium, adnexa, and/or cervix. Real-time duplex ultrasound scan of the arterial and venous flow of the abdominal and/or reproductive organs with B-mode, color Doppler flow and spectral waveform analysis with image documentation. Exam focused on the region of clinical concern. Complete exam. Duplex exam was performed to evaluate for vascular conditions. COMPARISON: US TRANSVAGINAL 02/24/2023 6:08 PM FINDINGS: Uterus: Uterus measures 8.43 cm x 6.15 cm x 3.8 cm. Mildly dilated subserosal myometrial uterine vessels. Right ovary/adnexa: Right ovary measures 3.31 cm x 2.22 cm x 1.78 cm. Right ovarian volume is 6.85 mL. Few small anechoic follicles with dominant simple anechoic ovarian functional cyst/follicle measuring approximately 1.7 x 1.8 x 0.8 cm. Left ovary/adnexa: Left ovary measures 3.07 cm x 1.47 cm x 1.53 cm. Left ovarian volume is 3.62 mL. Multiple small anechoic follicles. Doppler: Doppler examination of the ovaries with pulsed wave and color images was performed which demonstrate arterial/venous waveforms within normal limits. Intraperitoneal space: Trace free fluid in the pelvis. Endometrial stripe thickness: Approximately 4 mm with a small submucosal echogenic focus without shadowing. IMPRESSION: 1. Unremarkable uterus/endometrium without sonographic evidence of retained products of conception. Recommend correlation with pertinent clinical history and follow-up as indicated. 2. Normal ovaries demonstrating blood flow on Doppler. 3. Small amount of physiologic free fluid in the pelvis likely due to a ruptured ovarian cyst/follicle.
[2024-03-22 19:06] LABS: Appearance,Urine SL CLOUDY (Clear); Bilirubin,Urine Negative (Negative); Blood, Urine 3+ (Negative); Color,Urine YELLOW (Yellow); Glucose,Urine (UA) Negative (Negative); Ketones,Urine TRACE (Negative); Leukocyte Esterase,Urine TRACE (Negative); Nitrate,Urine Negative (Negative); Protein,Urine Negative (Negative); Specific Gravity, Urine 1.025 (1.005-1.030); Urobilinogen,Urine 0.2 EU/dl (0.2)
[2024-03-22 19:19] LABS: Bacteria,Urine Trace /lpf; RBC,Urine 20-50 #/hpf (0-3); WBC,Urine Occasional #/hpf (0-3)
[2024-03-22 19:30] VITALS: BP 109/71; PULSE 77; O2SAT 99
[2024-03-22 19:35] LABS: Basophils # 0.1 K/mm3 (0-0.2); Basophils % 1.2 % (0.1-2.0); Eosinophils # 0.1 K/mm3 (0.0-0.4); Eosinophils % 1.3 % (0.1-12.0); Hematocrit 37.5 % (37.0-47.0); Hemoglobin 12.3 g/dL (12.2-16.2); Lymphocytes # 3.8 K/mm3 (0.7-4.5); Lymphocytes % 51.9 % (10-50); Mean Corpuscular HGB Conc 32.9 g/dL (31.8-35.4); Mean Corpuscular Hemoglobin 26.7 pg (27.0-31.2); Mean Corpuscular Volume 81.3 fl (81-99); Mean Platelet Volume 8.1 fl (7.4-10.4); Monocytes # 0.4 K/mm3 (0.1-1.0); Monocytes % 4.9 % (1.7-9.3); Neutrophils % 40.8 % (37.0-80.0); Platelet Count 209 K/mm3 (142-424); Red Blood Count 4.62 M/mm3 (4.20-5.40); Red Cell Distribution Width 15.7 % (11.5-17.5); White Blood Count 7.3 K/mm3 (4.8-10.8)
[2024-03-22 19:44] LABS: Chloride 107 mmol/L (98-107)
[2024-03-22 19:45] LABS: MANUAL DIFFERENTIAL MANUAL DIFFERENTIAL (MANUAL DIFF); Potassium 3.5 mmoL/L (3.5-5.1); Sodium 137 mmol/L (136-145)
[2024-03-22 19:47] LABS: Alanine Aminotransferase 79 U/L (12-78); Aspartate Amino Transferase 74 U/L (14-36); Blood Urea Nitrogen 10 mg/dl (7-17); Creatinine Clearance Estimated 122 mL/min (50-200); Estimated Glomerular Filt Rate 105 ml/min (>60); GFR (African American) 127 ML/MIN (>60)
[2024-03-22 19:48] LABS: Albumin Level 4.3 g/dl (3.5-5.0); Albumin/Globulin Ratio 1.4 (1.1-1.8); Alkaline Phosphatase 67 U/L (38-126); Anion Gap 11.5 mEq/L (5-15); Bilirubin,Total 0.7 mg/dl (0.2-1.3); Calcium 9.2 mg/dl (8.4-10.2); Carbon Dioxide 22 mmol/L (22.0-30.0); Glucose 85 mg/dl (74-100); Magnesium 1.8 mg/dl (1.6-2.3); Total Protein,Serum 7.3 g/dl (6.3-8.2)
[2024-03-22 19:49] LABS: INR 1.05 (0.9-1.1); Prothrombin Time 11.3 seconds (10.1-12.5)
--- NOTE | 2024-03-22 19:50 | PC.NURSE ---
Patient currently in ultrasound.
[2024-03-22 20:07] LABS: HCG,Quantitative < 2 mIU/ml (0-5.42)
[2024-03-22] MEDS: LACTATED RINGERS 1000ML 1,000 ML 999 ML IV (20:18)
[2024-03-22] MEDS: ONDANSETRON 4MG/2ML VIAL 4 MG IV (20:20)
[2024-03-22] MEDS: METHOCARBAMOL 500MG TABLET 500 MG PO (20:21)
[2024-03-22] MEDS: ACETAMINOPHEN 1,000MG/100ML VIAL 1000 MG IV (20:22)
[2024-03-22 20:57] LABS: Eosinophils % 3 % (0-3); Lymphocytes % 52 % (10-50); Monocytes % 2 % (2-9); Neutrophils % 43 % (42-76); Platelet Estimate Normal; RBC Morphology Normal; Total Cells Counted 100
[2024-03-22 21:38] VITALS: BP 96/61; PULSE 87; RESP 16; TEMP 36.5; O2SAT 98
== END 2024-03-22 21:40 | disposition home or self-care (01) ==
PROVIDERS: Physician Assistant; Emergency Provider Emergency Medicine; PCP Nurse Practitioner Family
DX: N93.8 Other specified abnormal uterine and vaginal bleeding (principal); R74.01 Elevation of levels of liver transaminase levels; R10.84 Generalized abdominal pain; R42 Dizziness and giddiness; R53.1 Weakness; F17.290 Nicotine dependence, other tobacco product, uncomplicated
CPT/HCPCS: 76830; 80053; 81001; 83735; 84702; 85007; 85025; 85610; 86850; 96361; 96374; 96375; 99285; J0131; J2405

== ENCOUNTER 2024-03-23 16:21 | Outpatient (CLI) | payer OTHER, MEDICAID, SELFPAY ==
[2024-03-23 17:56] LABS: Thyroid Stimulating Hormone 1.01 uIU/mL (0.465-4.68)
== END 2024-03-23 23:59 | disposition home or self-care (01) ==
PROVIDERS: PCP Nurse Practitioner Family; Visit Provider Obstetrics & Gynecology
DX: N93.8 Other specified abnormal uterine and vaginal bleeding (principal)
CPT/HCPCS: 36415; 84443

== ENCOUNTER 2024-07-20 16:20 | Outpatient (CLI) | payer OTHER, SELFPAY ==
[2024-07-20 16:57] LABS: Basophils % 0.4 % (0.1-2.0); Eosinophils # 0.1 K/mm3 (0.0-0.4); Eosinophils % 1.2 % (0.1-12.0); Hematocrit 39.7 % (37.0-47.0); Hemoglobin 12.9 g/dL (12.2-16.2); Lymphocytes # 3.5 K/mm3 (0.7-4.5); Lymphocytes % 45.2 % (10-50); Mean Corpuscular HGB Conc 32.4 g/dL (31.8-35.4); Mean Corpuscular Hemoglobin 28.6 pg (27.0-31.2); Mean Corpuscular Volume 88.3 fl (81-99); Mean Platelet Volume 7.9 fl (7.4-10.4); Monocytes # 0.4 K/mm3 (0.1-1.0); Monocytes % 5.6 % (1.7-9.3); Neutrophils # 3.6 K/mm3 (1.8-7.8); Neutrophils % 47.5 % (37.0-80.0); Platelet Count 219 K/mm3 (142-424); Red Blood Count 4.49 M/mm3 (4.20-5.40); Red Cell Distribution Width 14.1 % (11.5-17.5); White Blood Count 7.6 K/mm3 (4.8-10.8)
[2024-07-20 17:24] LABS: Alanine Aminotransferase 33 U/L (12-78); Albumin/Globulin Ratio 1.3 (1.1-1.8); Alkaline Phosphatase 55 U/L (38-126); Aspartate Amino Transferase 36 U/L (14-36); Bilirubin,Total 0.7 mg/dl (0.2-1.3); Blood Urea Nitrogen 11 mg/dl (7-17); Calcium 9.2 mg/dl (8.4-10.2); Carbon Dioxide 24 mmol/L (22.0-30.0); Chloride 109 mmol/L (98-107); Estimated Glomerular Filt Rate 124 ml/min (>60); GFR (African American) 150 ML/MIN (>60); Glucose 76 mg/dl (74-100); Sodium 137 mmol/L (136-145)
[2024-07-20 17:54] LABS: Thyroid Stimulating Hormone 1.19 uIU/mL (0.465-4.68)
[2024-07-22 08:41] LABS: Estradiol <5.0 pg/mL (.); FSH 3.8 mIU/mL (.)
[2024-08-02 04:12] LABS: 1,25 Dihydroxy Vitamin D 69 pg/mL (.); 1,25-Dihydroxy, Vitamin D-2 <10 pg/mL (.); 1,25-Dihydroxy, Vitamin D-3 69 pg/mL (.)
== END 2024-07-20 23:59 | disposition home or self-care (01) ==
LOC: LAB 16:20
PROVIDERS: PCP Nurse Practitioner Family; Visit Provider Obstetrics & Gynecology
DX: N93.8 Other specified abnormal uterine and vaginal bleeding (principal); R74.01 Elevation of levels of liver transaminase levels; N80.9 Endometriosis, unspecified; R23.2 Flushing
CPT/HCPCS: 36415; 80050; 80053; 82652; 82670; 83001; 84443; 85025

== ENCOUNTER 2024-10-18 07:55 | Outpatient (CLI) | payer OTHER, SELFPAY ==
--- NOTE | 2024-10-18 07:57 | US_ITS ---
FINAL REPORT TECHNIQUE: Multiple transverse and longitudinal images CLINICAL HISTORY: RUQ PAIN COMPARISON: none FINDINGS: The gallbladder shows no wall thickening, distention or stone disease. No biliary ductal dilatation is appreciated. No fluid collections are seen. Limited portions of the right liver are unremarkable. Limited portions of the right kidney are unremarkable. IMPRESSION: No evidence of cholelithiasis No evidence of biliary obstruction Reviewed, Interpreted and Dictated by Tamara Leal MD Transcribed by Ping Irene Authenticated and [facility]
== END 2024-10-18 23:59 | disposition home or self-care (01) ==
LOC: RAD 07:56
PROVIDERS: PCP Nurse Practitioner; Visit Provider Nurse Practitioner
DX: R10.11 Right upper quadrant pain (principal)
CPT/HCPCS: 76705

== ENCOUNTER 2024-10-22 11:21 | Emergency (ER) | payer OTHER, SELFPAY ==
[2024-10-22 11:22] VITALS: BP 101/59; PULSE 113; RESP 16; TEMP 36.8; O2SAT 99; BMI 22.6
--- NOTE | 2024-10-22 11:35 | ECG_ITS ---
APPROVED REPORT Exam: Resting ECG HR:95 bpm ECG Measurements Heart Rate 95 AXES PA 148 P 71 QRSd 91 QRS 82 QT 339 T 66 QTc 391 Conclusion SINUS RHYTHM NORMAL ECG Electronically signed by : BRIONNA TRAORE, 10/23/2024 07:24:32
--- NOTE | 2024-10-22 11:49 | ED_ITS ---
Discharge Plan Disposition Patient Disposition: Home, Self-Care Prescriptions Prescriptions: New ondansetron 4 mg tablet,disintegrating 4 mg PO Q6H PRN (Reason: nausea and vomiting) Qty: 10 0RF No Action Qulipta 60 mg tablet 60 mg PO DAILY Qty: 30 5RF Nurtec ODT 75 mg tablet,disintegrating 75 mg PO ONCE PRN (Reason: migraine headache) Qty: 8 5RF Slynd 4 mg (28) tablet 4 mg PO DAILY Qty: 84 0RF labetalol 100 mg tablet See Rx Instructions .ROUTE .COMPLEX Qty: 60 1RF Dose Instruction: TAKE 1 TABLET BY MOUTH AT BEDTIME FOR 1 WEEK AND THEN 1 TWICE DAILY Rx Instructions: TAKE 1 TABLET BY MOUTH AT BEDTIME FOR 1 WEEK AND THEN 1 TWICE DAILY albuterol sulfate [Ventolin HFA] 90 mcg/actuation HFA aerosol inhaler 2 puff inhalation Q6HP PRN (Reason: shortness of breath or wheezing) Referrals Follow up/Referrals: Karyn Barreto APRN [Primary Care Provider] - See instructions Activity Restrictions/Add. Instructions Additional Instructions/Restrictions: Call your family doctor to establish care for this visit to the emergency department and schedule follow-up within 48 hours to ensure improvement. If you have any worsening of your condition or any other concerning signs or symptoms, return to the emergency department or your primary care doctor for further evaluation. Zofran as needed for nausea and vomiting. Clinical Impressions Clinical Impression: Syncope, Vomiting and diarrhea Instructions Patient Instructions: DI for Syncope in Adults (Fainting), DI for Syncope in Children (Fainting) Print Language Print Language: Malagasy Discharge ED Provider: Justin Desai General Adult HPI General Chief complaint: Syncope Stated complaint: AO- 1030am passed out, hit back of head, pain Time Seen by Provider: 10/22/24 11:24 History of Present Illness HPI narrative: Please note that above description of symptoms, in this electronic medical record under categorization of recalled from ER triage doctor by RN are reflective of an initial nursing assessment, however, is not reflective of my full history and physical exam that was personally taken and clarified. Consequentially, this preceding description of symptoms, which may include the patient's categorized chief complaint in the EMR, do not reflect my personal clinical impression, and the ultimate description of history of present illness and patient stated complaints should be deferred to this section of the note. Unless stated otherwise or congruent with this section of the note, additional signs, symptoms, or incongruence should be interpreted as inaccurate with my clinical impression. Related Data Home Medications ?Medication ?Instructions ?Recorded ?Confirmed albuterol sulfate 90 mcg/actuation 2 puff inhalation Q6HP PRN 12/01/23 09/16/24 aerosol inhaler (Ventolin HFA) shortness of breath or wheezing Previous Rx's ?Medication ?Instructions ?Recorded atogepant 60 mg tablet (Qulipta) 60 mg PO DAILY Migraine Headache 08/31/24 #30 tabs rimegepant 75 mg disintegrating 75 mg PO ONCE PRN migraine 08/31/24 tablet (Nurtec ODT) headache #8 tabs drospirenone (contraceptive) 4 mg 4 mg PO DAILY #84 tabs 10/04/24 (28) tablet (Slynd) labetalol 100 mg tablet See Rx Instructions .Route 10/12/24 .COMPLEX #60 tabs ondansetron 4 mg disintegrating 4 mg PO Q6H PRN nausea and 10/22/24 tablet vomiting #10 tabs Allergies Allergy/AdvReac Type Severity Reaction Status Date / Time cinnamon Allergy Mild rash Verified 09/16/24 15:47 [facility] Disclaimer: The information contained in this section may have been updated after the patient was seen, as this information can be updated by other users. Medical History Dyspareunia Dysmenorrhea Hot flashes Contraception management Syncope Panic attack Acute blood loss anemia Eczema Endometriosis Chronic pelvic pain in female Surgical History Hx of wisdom tooth extraction Hx of tonsillectomy Family History Grandmother Cancer breast Other Asthma Diabetes Social History Smoking Status: Never smoker alcohol intake: never substance use type: denies use current occupational status: employed Travel in the last 8 weeks: None Have you lived/traveled outside US in past 30 days?: No Contact w/someone who lives/traveled outside US past 30 days?: No Exposure to someone with infectious disease in past 14 days?: No Do you have a fever (greater than 100.4 F or 38 C)?: No Have you tested positive for COVID-19: No Exposed to someone with COVID-19 in past 14 days?: No Do you have a sore throat?: No Do you have a cough?: No Do you have any weakness?: No Do you have any diarrhea?: No Are you experiencing any unusual bleeding?: No Do you have any muscle aches/pain?: No Do you have any abdominal pain?: No Are you experiencing loss of taste or smell?: No Other Medical History Have you received the Flu Vaccine for this season: No Have you received the Pneumonia Vaccine: No ROS Obtained: Yes All systems reviewed & no additional complaints except as documented Physical Exam General General appearance: alert Head Head exam: normocephalic and other (No outward signs of trauma, but tenderness on occipital scalp) Eye Eye exam: Present normal appearance, PERRL and EOMI Neck Neck exam: Present normal inspection, full ROM and trachea midline; Absent tenderness Respiratory Respiratory exam: Present normal lung sounds bilaterally; Absent respiratory distress, wheezes, stridor, accessory muscle use or prolonged expiratory phase Cardiovascular Cardiovascular exam: Present normal rhythm, tachycardia and other (Pulses equal symmetric in upper and lower extremities) Abdominal Exam Abdominal exam: Present soft; Absent distention, tenderness, guarding, rebound, rigidity or pulsatile mass Extremities Exam Extremities exam: Absent edema Neurological Exam Neurological exam: Present alert, oriented X3, CN II-XII intact and normal gait; Absent motor sensory deficit Skin Skin exam: Present warm and dry; Absent diaphoresis or erythema Medical Decision Making Medical Records Medical records reviewed: Yes I reviewed the patient's medical records. Screening: Per USPSTF and CDC recommendations, given the prevalence of disease in our region, it is our hospital?s policy to screen for HIV and viral Hepatitis for all patients aged 18 and over and those with ongoing risk factors. Ez Inquiry Pt receiving controlled substance: No Ez was queried for this patient: No Vital Signs: 10/22/24 11:22 10/22/24 12:00 10/22/24 12:30 Temperature 98.3 F Temperature Source Oral Pulse Rate 98 H 80 Pulse Rate [Right] 113 H Respiratory Rate 16 Blood Pressure 101/68 L 103/59 L Blood Pressure [Right Arm] 101/59 L Blood Pressure Mean 79 Blood Pressure Mean [Right Arm] 73 Blood Pressure Source [Right Arm] Automatic Cuff 02 Sat by Pulse Oximetry 99 98 99 Oxygen Delivery Method Room Air Room Air Room Air 10/22/24 13:00 Temperature Temperature Source Pulse Rate 64 Pulse Rate [Right] Respiratory Rate Blood Pressure 92/52 L Blood Pressure [Right Arm] Blood Pressure Mean Blood Pressure Mean [Right Arm] Blood Pressure Source [Right Arm] 02 Sat by Pulse Oximetry 100 Oxygen Delivery Method Room Air Lab Data Lab Results 10/22/24 12:08: WBC 9.1, RBC 4.65, Hgb 13.9, Hct 40.1, MCV 86.2, MCH 29.9, MCHC 34.7, RDW 13.0, Plt Count 215, MPV 10.1, Neut % (Auto) 69.9, Lymph % (Auto) 21.8, [place] % (Auto) 6.3, Eos % (Auto) 1.5, Baso % (Auto) 0.3, Neut # (Auto) 6.3, Lymph # (Auto) 2.0, [place] # (Auto) 0.6, Eos # (Auto) 0.1, Baso # (Auto) 0.0, Sodium 136, Potassium 3.8, Chloride 111 H, Carbon Dioxide 24, Anion Gap 4.8 L, BUN 12, Creatinine 0.60, Estimated Creat Clear 134, Estimated GFR 124, Est GFR ( Amer) 150, Glucose 88, Calcium 9.1, Magnesium 2.0, Total Bilirubin 1.2, AST 46 H, ALT 41, Alkaline Phosphatase 59, Troponin I < 0.01, NT-Pro-B Natriuret Pep < 20.0, Total Protein 7.1, Albumin 4.6, Globulin 2.5, Albumin/Globulin Ratio 1.8, TSH 1.07, Thyroxine (T4) 9.3, HCG, Quant < 2 10/22/24 12:08 10/22/24 12:08 Orders (Tests/Meds): ED MEDICATIONS Discontinued Medications Generic Name Dose Route Start Last Admin Trade Name Freq PRN Reason Stop Dose Admin Acetaminophen 1,000 mg 10/22/24 11:52 10/22/24 11:57 Acetaminophen 1,000mg/100ml Vial IV 10/22/24 11:53 1,000 mg ONCE ONE Administration Sodium Chloride 1,000 mls @ 999 mls/hr 10/22/24 11:32 10/22/24 11:57 Sod Chlor 0.9% 1000ml Bag IV 10/22/24 12:32 999 mls/hr .Q1H1M ONE Administration Ketorolac Tromethamine 15 mg 10/22/24 12:58 10/22/24 13:24 Ketorolac 30mg/Ml Vial IV 10/22/24 12:59 15 mg ONCE ONE Administration Ondansetron HCl 4 mg 10/22/24 11:32 10/22/24 11:55 Ondansetron 4mg/2ml Vial IV 10/22/24 11:33 4 mg ONCE ONE Administration ORDERS Category Date Time Status Complete Blood Count Auto Diff Stat Lab 10/22/24 12:08 Completed Comprehensive Metabolic Panel Stat Lab 10/22/24 12:08 Completed HCG,Quantitative Stat Lab 10/22/24 12:08 Completed HIV (1&2) Antibody Rapid Stat Lab 10/22/24 12:34 Ordered Hep C Ab with Reflex to RNA Stat Lab 10/22/24 12:34 Ordered Magnesium Stat Lab 10/22/24 12:08 Completed NT Pro Brain Natriuretic Pep. Stat Lab 10/22/24 12:08 Completed PT INR [Prothrombin Time INR] Stat Lab 10/22/24 12:08 Received PTT [Activated Partial Thrombo Time] Stat Lab 10/22/24 12:08 Received T4 (Thyroxine) Stat Lab 10/22/24 12:08 Completed TSH [Thyroid Stimulating Hormone] Stat Lab 10/22/24 12:08 Completed Troponin I Q3H Lab 10/22/24 14:45 Ordered Troponin I Q3H Lab 10/22/24 17:45 Ordered Troponin I Stat Lab 10/22/24 12:08 Completed Medical Decision Narrative: 24-year-old female history of tachycardia, syncope presenting with syncope. Patient states that she has had diarrhea on and off for the last 3 weeks, but is gotten worse in the last 24 hours. Started having nausea today at work. She went to the bathroom, vomited, as she was leaving the bathroom shortly thereafter, felt lightheaded, leaned against a wall, then woke up on the floor. Coworker was with her, no reported seizure-like activity. Patient states that she woke up and started vomiting. She is feeling much better now, but still nauseated and having posterior head pain. No vision changes, neck pain, chest pain, shortness of breath, etc. Patient states that her heart rate usually sits around 110 with the labetalol she is on for tachycardia and migraines.. History was obtained via conversation with patient. On arrival, patient hemodynamically stable, alert, oriented x4, appropriate, GCS 15, moving all extremities spontaneously, pupils equal and reactive to light. Full physical exam performed and significant for well-appearing female no acute distress. Tenderness about posterior scalp, no outward signs of injury or deformity. Full range of motion of neck, no neck tenderness. Neurologically intact. Patient is tachycardic, but no other abnormal cardiac findings. Differential includes vasovagal, orthostatic, arrhythmia, among others. Patient placed on continuous cardiac monitoring and continuous pulse ox with initial blood pressure 101/59, heart rate 113, saturation 99% on room air. Independent interpretation of EKG shows 95 bpm normal sinus rhythm. No ST or T wave changes concerning for acute schema. MN 148, QRS 91, QTc 391. Normal axis. Patient was given fluids and Zofran, acetaminophen for symptomatic management and correction of underlying abnormalities. Workup independently interpreted and significant for nonactionable CBC or chemistry. Kidney function normal. Troponin negative, BNP negative. Thyroid studies normal and hCG negative. Patient given Toradol after hCG resulted negative. On reevaluation, patient feeling tired and nauseated, but a little better. CT head and neck were considered, however given patient has no outward signs of injury or deformity, no midline spinal tenderness, no neurologic deficits and modest improvement with meds, not deemed necessary. Given patient presentation, workup, history, this most likely represents vasovagal syncope versus orthostatic syncope in the setting of vomiting and diarrheal syndrome. Because patient at baseline without signs or symptoms of clinical decompensation, deemed appropriate for discharge. Results were relayed to patient who voiced understanding and were agreeable to outpatient management and follow up. I discussed my clinical impression with patient and answered all questions. At this time, the evidence for any other entities in the differential is insufficient to warrant any further testing or ED observation. This was explained as well. Advisory was given that persistent or worsening symptoms require further evaluation. I confirmed the understanding of this discussion. [employer]ware [employer] disclaimer Much of this encounter note is an electronic buzzle buffer spoken language to printed text. Electronic buzzle buffer of the spoken language may permit errors. Although I have reviewed the note, some errors may still exist. Critical Care Critical Care Time Critical Care Time: No
[2024-10-22] MEDS: ONDANSETRON 4MG/2ML VIAL 4 MG IV (11:55)
[2024-10-22] MEDS: 0.9 % SODIUM CHLORIDE 1000ML 1,000 ML 999 ML IV (11:57)
[2024-10-22] MEDS: ACETAMINOPHEN 1,000MG/100ML VIAL 1000 MG IV (11:57)
[2024-10-22 12:00] VITALS: BP 101/68; PULSE 98; O2SAT 98
[2024-10-22 12:30] VITALS: BP 103/59; PULSE 80; O2SAT 99
[2024-10-22 12:31] LABS: Albumin Level 4.6 g/dl (3.5-5.0); Chloride 111 mmol/L (98-107)
[2024-10-22 12:32] LABS: Sodium 136 mmol/L (136-145)
[2024-10-22 12:34] LABS: Alanine Aminotransferase 41 U/L (12-78); Aspartate Amino Transferase 46 U/L (14-36); Blood Urea Nitrogen 12 mg/dl (7-17); Creatinine Clearance Estimated 134 mL/min (50-200); Estimated Glomerular Filt Rate 124 ml/min (>60); GFR (African American) 150 ML/MIN (>60)
[2024-10-22 12:35] LABS: Albumin/Globulin Ratio 1.8 (1.1-1.8); Alkaline Phosphatase 59 U/L (38-126); Bilirubin,Total 1.2 mg/dl (0.2-1.3); Calcium 9.1 mg/dl (8.4-10.2); Carbon Dioxide 24 mmol/L (22.0-30.0); Globulin 2.5 g/dL (1.3-3.2); Glucose 88 mg/dl (74-100); Total Protein,Serum 7.1 g/dl (6.3-8.2)
[2024-10-22 12:37] LABS: Anion Gap 4.8 mEq/L (5-15); Potassium 3.8 mmoL/L (3.5-5.1)
[2024-10-22 12:45] LABS: NT Pro Brain Natriuretic Pep. < 20.0 pg/mL (0-125)
[2024-10-22 12:51] LABS: Red Blood Count 4.65 M/mm3 (4.20-5.40); Troponin I < 0.01 ng/ml (0.00-0.034); White Blood Count 9.1 K/mm3 (4.8-10.8)
[2024-10-22 12:52] LABS: Hematocrit 40.1 % (37.0-47.0); Hemoglobin 13.9 g/dL (12.2-16.2); Mean Corpuscular Volume 86.2 fl (81-99); T4 (Thyroxine) 9.3 ug/dl (5.53-11.0)
[2024-10-22 12:53] LABS: Mean Corpuscular HGB Conc 34.7 g/dL (31.8-35.4); Mean Corpuscular Hemoglobin 29.9 pg (27.0-31.2); Mean Platelet Volume 10.1 fl (7.4-10.4); Platelet Count 215 K/mm3 (142-424)
[2024-10-22 12:54] LABS: Basophils % 0.3 % (0.1-2.0); Eosinophils # 0.1 K/mm3 (0.0-0.4); Eosinophils % 1.5 % (0.1-12.0); Lymphocytes % 21.8 % (10-50); Monocytes # 0.6 K/mm3 (0.1-1.0); Monocytes % 6.3 % (1.7-9.3); Neutrophils # 6.3 K/mm3 (1.8-7.8); Neutrophils % 69.9 % (37.0-80.0)
[2024-10-22 12:55] LABS: HCG,Quantitative < 2 mIU/ml (0-5.42)
[2024-10-22 13:00] VITALS: BP 92/52; PULSE 64; O2SAT 100
[2024-10-22 13:06] LABS: Thyroid Stimulating Hormone 1.07 uIU/mL (0.465-4.68)
[2024-10-22] MEDS: KETOROLAC 30MG/ML VIAL 15 MG IV (13:24)
[2024-10-22 13:49] VITALS: BP 95/56; PULSE 86; RESP 18; TEMP 36.7
[2024-10-22 13:56] LABS: Activated Partial Thrombo Time 29.7 seconds (22.8-30.6); INR 0.96 (0.9-1.1); Prothrombin Time 10.8 seconds (10.1-12.5)
== END 2024-10-22 13:50 | disposition home or self-care (01) ==
PROVIDERS: Emergency Provider Emergency Medicine; PCP Nurse Practitioner
DX: R55 Syncope and collapse (principal); R19.7 Diarrhea, unspecified; R11.2 Nausea with vomiting, unspecified; R51.9 Headache, unspecified
CPT/HCPCS: 80050; 80053; 83735; 83880; 84436; 84443; 84484; 84702; 85025; 85610; 85730; 93005; 96361; 96374; 96375; 99284; J0131; J1885; J2405; J7030

== ENCOUNTER 2024-12-07 12:26 | Outpatient (CLI) | payer OTHER, SELFPAY ==
[2024-12-07 13:06] LABS: Basophils % 0.5 % (0.1-2.0); Eosinophils # 0.1 K/mm3 (0.0-0.4); Eosinophils % 1.5 % (0.1-12.0); Hematocrit 37.3 % (37.0-47.0); Hemoglobin 12.8 g/dL (12.2-16.2); Lymphocytes # 3.4 K/mm3 (0.7-4.5); Lymphocytes % 43.6 % (10-50); Mean Corpuscular HGB Conc 34.3 g/dL (31.8-35.4); Mean Corpuscular Hemoglobin 29.8 pg (27.0-31.2); Mean Corpuscular Volume 86.7 fl (81-99); Mean Platelet Volume 10.2 fl (7.4-10.4); Monocytes # 0.6 K/mm3 (0.1-1.0); Neutrophils # 3.7 K/mm3 (1.8-7.8); Platelet Count 215 K/mm3 (142-424); Red Cell Distribution Width 12.9 % (11.5-17.5); White Blood Count 7.9 K/mm3 (4.8-10.8)
[2024-12-07 13:14] LABS: Albumin Level 4.4 g/dl (3.5-5.0); Chloride 106 mmol/L (98-107); Potassium 4.1 mmoL/L (3.5-5.1); Sodium 139 mmol/L (136-145)
[2024-12-07 13:17] LABS: Alanine Aminotransferase 22 U/L (12-78); Albumin/Globulin Ratio 1.8 (1.1-1.8); Alkaline Phosphatase 64 U/L (38-126); Anion Gap 12.1 mEq/L (5-15); Aspartate Amino Transferase 30 U/L (14-36); Bilirubin,Total 0.5 mg/dl (0.2-1.3); Blood Urea Nitrogen 11 mg/dl (7-17); Calcium 9.3 mg/dl (8.4-10.2); Carbon Dioxide 25 mmol/L (22.0-30.0); Estimated Glomerular Filt Rate 124 ml/min (>60); GFR (African American) 150 ML/MIN (>60); Globulin 2.4 g/dL (1.3-3.2); Glucose 78 mg/dl (74-100); Total Protein,Serum 6.8 g/dl (6.3-8.2)
[2024-12-07 13:37] LABS: HCG,Quantitative < 2 mIU/ml (0-5.42)
== END 2024-12-07 23:59 | disposition home or self-care (01) ==
LOC: PREOP 12:27
PROVIDERS: PCP Nurse Practitioner; Visit Provider Obstetrics & Gynecology
DX: N94.6 Dysmenorrhea, unspecified (principal); Z34.90 Encounter for supervision of normal pregnancy, unspecified, unspecified trimester; Z3A.00 Weeks of gestation of pregnancy not specified
CPT/HCPCS: 80053; 84702; 85025; 86850

== ENCOUNTER 2024-12-09 06:40 | Observation (INO) | payer OTHER, SELFPAY ==
[2024-12-07 14:00] VITALS: BMI 20.8
[2024-12-09] VITALS (26 sets, daily range): BP systolic 101–122; BP diastolic 51–78; PULSE 60–113; RESP 15–20; TEMP 36.3–43; O2SAT 95–100
[2024-12-09] MEDS: CELECOXIB 100MG CAPSULE 400 MG PO (06:23)
[2024-12-09] MEDS: LACTATED RINGERS 1000ML 1,000 ML 25 ML IV (06:23)
[2024-12-09] MEDS: ACETAMINOPHEN 500MG TAB 1000 MG PO ×4 (06:24→23:39)
[2024-12-09] MEDS: GABAPENTIN 600MG TABLET 600 MG PO (06:26)
--- NOTE | 2024-12-09 06:52 | P.PNANES_ITS ---
[facility] Disclaimer: The information contained in this section may have been updated after the patient was seen, as this information can be updated by other users. Medical History Dysphagia Asthma Tachycardia Migraine Dyspareunia Dysmenorrhea Hot flashes Contraception management Syncope Panic attack Acute blood loss anemia Eczema Endometriosis Chronic pelvic pain in female Surgical History Hx of wisdom tooth extraction Hx of tonsillectomy Family History Grandmother Cancer breast Other Asthma Diabetes Social History Smoking Status: Current every day smoker tobacco type: cigarettes and e- cigarettes alcohol intake: never substance use type: denies use current occupational status: employed Travel in the last 8 weeks: None Have you lived/traveled outside US in past 30 days?: No Contact w/someone who lives/traveled outside US past 30 days?: No Exposure to someone with infectious disease in past 14 days?: No Do you have a fever (greater than 100.4 F or 38 C)?: No Have you tested positive for COVID-19: No Exposed to someone with COVID-19 in past 14 days?: No Do you have a sore throat?: No Do you have a cough?: No Do you have any weakness?: No Do you have any diarrhea?: No Are you experiencing any unusual bleeding?: No Do you have any muscle aches/pain?: No Do you have any abdominal pain?: No Are you experiencing loss of taste or smell?: No [facility] Anesthesia Checklist Patient Identification Patient Identification: Arm Band and Family Structural Data Admitted From: Home Planned Operative Procedure/s: Laparoscopy histerectomy. Verified Documents: Surgical Consent and History and Physical NPO Status Verified Time NPO: 00:00 Additional verifications Patient : No Anesthesia Reactions: No Hx Blood Transfusions: No Blood Transfusion Reaction: No Cephalosporin Allergy: No Previous Colonoscopy: No Airway Assessment Mallampati Score:: Class I C-Spine Mobility Assessed: Yes TMJ Mobility Assessed: Yes Neurological Assessment Level of Consciousness: Awake, Alert, Appropriate and Follows Commands Hx Seizures: No Numbness or tingling in extremities: No Anesthesia Plan ASA Class: II Anesthesia Type: General Preoperative Comments Pre-Operative Comments: History of esophageal dilation. History of asthma. Endometriosis.
--- NOTE | 2024-12-09 07:33 | P.HP_ITS ---
History of Present Illness *Admission Date: 12/09/24 *Reason for visit:: Scheduled surgery *History of present illness: Mrs. Ashley Major is a 24 yo P2002 who presents to [facility] for scheduled surgery. She complains of dysmenorrhea, dyspareunia and hot flashes. She was taking Slynd for these symptoms. She has history of DUB and endometriosis. She is following with neurology for migraines. She was getting numbness in her hands and feet with her migraines. Since starting Slynd the pain is still unbearable and her has to care for their two children when she is on her period. The pain puts her in bed. She reports she bled from 07/24/24 - 08/24/24... heavy bleeding with clots. She then bled again 08/17/24 -08/27/24 and 08/28/24-09/07. 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 She desires definitive surgical intervention with hysterectomy. P2002. History of x 2. Surgical history - tonsillectomy and wisdom teeth extraction. [facility] Disclaimer: The information contained in this section may have been updated after the patient was seen, as this information can be updated by other users. Medical History Dysphagia Asthma Tachycardia Migraine Dyspareunia Dysmenorrhea Hot flashes Contraception management Syncope Panic attack Acute blood loss anemia Eczema Endometriosis Chronic pelvic pain in female Surgical History Hx of wisdom tooth extraction Hx of tonsillectomy Family History Grandmother Cancer breast Other Asthma Diabetes Social History Smoking Status: Current every day smoker tobacco type: cigarettes and e- cigarettes alcohol intake: never substance use type: denies use current occupational status: employed Travel in the last 8 weeks: None Have you lived/traveled outside US in past 30 days?: No Contact w/someone who lives/traveled outside US past 30 days?: No Exposure to someone with infectious disease in past 14 days?: No Do you have a fever (greater than 100.4 F or 38 C)?: No Have you tested positive for COVID-19: No Exposed to someone with COVID-19 in past 14 days?: No Do you have a sore throat?: No Do you have a cough?: No Do you have any weakness?: No Do you have any diarrhea?: No Are you experiencing any unusual bleeding?: No Do you have any muscle aches/pain?: No Do you have any abdominal pain?: No Are you experiencing loss of taste or smell?: No Other Medical History Have you received the Flu Vaccine for this season: No Have you received the Pneumonia Vaccine: No Review of Systems Review of Systems Review of systems:: pertinent systems reviewed and negative unless documented below *Gastrointestinal Gastrointestinal: Reports abdominal pain *Genitourinary Genitourinary: Reports abnormal menses, Reports dysmenorrhea, Reports dyspareunia and Reports pelvic pain Meds Home Medications and Allergies Home Medications ?Medication ?Instructions ?Recorded ?Confirmed ?Type albuterol sulfate 90 mcg/actuation 2 puff inhalation Q6HP PRN 12/01/23 12/09/24 History aerosol inhaler (Ventolin HFA) shortness of breath or wheezing atogepant 60 mg tablet (Qulipta) 60 mg PO DAILY Migraine Headache 08/31/24 12/09/24 Rx #30 tabs rimegepant 75 mg disintegrating 75 mg PO ONCE PRN migraine 08/31/24 12/09/24 Rx tablet (Nurtec ODT) headache #8 tabs drospirenone (contraceptive) 4 mg 4 mg PO DAILY #84 tabs 10/04/24 12/09/24 Rx (28) tablet (Slynd) ondansetron 4 mg disintegrating 4 mg PO Q6H PRN nausea and 10/22/24 12/09/24 Rx tablet vomiting #10 tabs labetalol 100 mg tablet See Rx Instructions .Route 11/29/24 12/09/24 Rx .COMPLEX #60 tabs New Prescriptions to Start Prescriptions: Allergies Allergy/AdvReac Type Severity Reaction Status Date / Time cinnamon Allergy Mild rash Verified 12/09/24 06:27 Exam Data for Last 24 hours Vital signs and Labs for Last 24 Hours: Temp Pulse Resp BP Pulse Ox O2 Del Method 98.4 F 87 18 108/71 L 98 Room Air 02/06/25 06:29 12/09/24 06:29 12/09/24 06:29 12/09/24 06:29 12/09/24 06:29 12/09/24 06:29 I & O for Last 24 hours: Intake & Output 12/06/24 12/07/24 12/08/24 12/09/24 23:59 23:59 23:59 23:59 Weight 133 lb Constitutional Constitutional: no acute distress and cooperative *Routine HEENT Exam Head: Present normocephalic and atraumatic Eye: Absent conjunctivae pink ENT: Present mucous membranes moist *Routine Neck Exam Neck: Present full ROM *Routine Respiratory Exam Respiratory: Present CTA bilaterally and normal respiratory effort *Routine Cardiovascular Exam Cardiovascular: Present RRR *Routine Abdominal Exam Abdominal: Present soft; Absent tenderness or distended *Routine Rectal Exam Rectal:: deferred *Routine Genitalia Exam Genitalia:: deferred *Routine Extremities Exam Extremities: Present full ROM; Absent edema or calf tenderness *Routine Neurological Exam Neurological: Present alert, moving all extremities and normal speech Routine Psychiatric Exam Psychiatric: Present normal affect and cooperative Assessment and Plan *Assessment and plan (1) Chronic pelvic pain in female: Status: Acute Category: Medical Code(s): R10.2 - Pelvic and perineal pain; G89.29 - Other chronic pain (2) Endometriosis: Status: Acute Category: Medical Code(s): N80.9 - Endometriosis, unspecified (3) Dysmenorrhea: Status: Chronic Category: Medical Code(s): N94.6 - Dysmenorrhea, unspecified (4) Dyspareunia: Status: Acute Category: Medical (5) DUB (dysfunctional uterine bleeding): Status: Acute Category: Medical Code(s): N93.8 - Other specified abnormal uterine and vaginal bleeding Plan Reviewed TLH, BS, possible ARTHUR, BS, possible cystoscopy in detail. Discussed risks, benefits, alternatives, expectations and possible complications of surgery. Risks include but are not limited to bleeding; infection; damage to adjacent structures (bowel, bladder, nerves, blood vessels, etc) (possibly req uiring further intervention and/or longer hospital stay); VTE; risks with anesthesia; and risk of . All questions addressed and answered. Patient voiced understanding of risks and possible complications. Patient desires to proceed with surgery. Consent form signed Proceed with surgery as scheduled
--- NOTE | 2024-12-09 08:17 | P.CONPHA_ITS ---
Pharmacy Intervention Comments: MEDICATION RECONCILIATION COMPLETED ON PATIENT USING EXTERNAL FILL HISTORY FROM PHARMACY AND LIST FROM BUSINESS SUPPORT SPECIALIST OFFICE. -JULIA CROWED
--- NOTE | 2024-12-09 08:17 | HMH.PHAINT1 ---
Pharmacy Intervention Comments: MEDICATION RECONCILIATION COMPLETED ON PATIENT USING EXTERNAL FILL HISTORY FROM PHARMACY AND LIST FROM LIVE GAMES DEALER OFFICE. -JULIA CROWED
[2024-12-09] MEDS: BUPIVACAINE 0.5% 30ML VIAL 150 MG (08:24)
[2024-12-09] MEDS: CEFAZOLIN SODIUM 2 GM in 0.9 % SODIUM CHLORIDE 50 ML IV (08:25)
[2024-12-09] MEDS: METRONIDAZ/SOD CHL 500 MG/100 ML PIGGYBACK 100 MG IV (08:25)
[2024-12-09] MEDS: 0.9 % SODIUM CHLORIDE 1000ML 1,000 ML 25 ML IV (08:29)
--- NOTE | 2024-12-09 09:07 | P.OP_ITS ---
Date of procedure: 12/09/24 Pre-op Diagnosis:: 1. Chronic pelvic pain in female 2. Endometriosis 3. Dysmenorrhea 4. Dyspareunia 5. DUB (dysfunctional uterine bleeding) Post-op Diagnosis:: 1. Chronic pelvic pain in female 2. Endometriosis 3. Dysmenorrhea 4. Dyspareunia 5. DUB (dysfunctional uterine bleeding) 6. Stage 1 endometriosis of pelvic peritoneum Procedure performed:: Total Laparoscopic Hysterectomy, bilateral salpingectomy Surgeon:: Liz Mireles DO Medical Coordinator Pesticide Use(s):: Lance Coley MD MUSHROOM GROWTH MEDIA MIXER:: Nader Andrade Anesthesia: GETA Estimated blood loss (mL): 50 Clinical Note:: Mrs. Ashley Major is a 24 yo P2002 who presents to [facility] for scheduled surgery. She complains of dysmenorrhea, dyspareunia and hot flashes. She was taking Slynd for these symptoms. She has history of DUB and endometriosis. She is following with neurology for migraines. She was getting numbness in her hands and feet with her migraines. Since starting Slynd the pain is still unbearable and her has to care for their two children when she is on her period. The pain puts her in bed. She reports she bled from 07/24/24 - 08/24/24... heavy bleeding with clots. She then bled again 08/17/24 -08/27/24 and 08/28/24-09/07. 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 She desires definitive surgical intervention with hysterectomy. P2002. History of x 2. Surgical history - tonsillectomy and wisdom teeth extraction. Operative findings:: 1. On bimanual exam, uterus normal size and shape, midposition. No adnexal masses palpated 2. On laparoscopic exam: liver, gallbladder, stomach, bowel and appedix appeared grossly normal. Uterus, bilateral fallopian tubes and ovaries appeared grossly normal. Masters defect noted on posterior cul-de-sac on left side, several small clear/white endometric lesions on posterior lower uterine segment near uterosacral ligaments. No endometriosis noted on ovaries or bladder. Operative note:: Discussed risks, benefits, alternatives, expectations and possible complications of surgery. All questions addressed and answered. Patient wished to proceed with surgery. Patient was wheeled back to the operating room and placed under general anesthesia without difficulty. She was placed in the dorsal lithotomy position. She was prepped and draped in normal sterile fashion. Beginning at the vagina, a short catheter was inserted into the bladder and draining clear urine prior to the start of the procedure. Weighted Auvuard was placed in the vaginal vault. Anterior lip of the cervix was grasped with single tooth tenaculum. Uterus sounded to 8. Danny dilators were used to dilate the cervix. Advincula uterine manipulator was inserted into the cervix with the colpotomy cup covering the cervix. Single tooth tenaculum was removed prior to complete placement of colpotomy cup over cervix. Uterine balloon was filled with 10cc of air. Vaginal balloon was filled with 60 cc of air. Weighted Auvard was removed. Attention was then turned to the abdomen. Skin just below the umbilicus was injected with 0.5% marcaine. A 1.5 cm infraumbilical incision was made. Veress needle was tested and inserted intrabdominally. Opening pressure was 3 mm Hg. The peritoneal cavity was insulflated to 15 mm Hg. Laparoscope within 11 mm blunt trocar was inserted intrabdominally under direct visualization. Obturator and scope were removed. Laparoscope was inserted into the trocar sleeve. Abdomen and pelvis was viewed in its entirety. Examination of the peritoneal cavity revealed no signs of injury from entry and normal anatomic structures. See findings above. Pictures were taken. Bowel was swept cephalad with blunt probe. LLQ port site was transilluminated and injected with 0.5% marcaine. A 1.5 cm incision was made and 11 mm trocar was inserted intraabdominally under direct laparoscopic visualization. Obturator was removed and sleeve was left in place. Same procedure was performed in RLQ. Right fallopian tube was grasped at fimbriated end. Ligasure Hook was used to clamp, cauterize and transect the left mesosalpinx, mesovarium and ovarian ligament. Right fallopian tube was clamped, cauterized and transected at cornua of uterus and removed from the body and off of the sterile field to be sent to pathology for review. Transection was carried through the Broad ligament. Same procedure was carried out on the contralateral side including transecting the left fallopian tube and removing it from the body and off of the sterile field. Both ovaries left in situ. Care was taken to slowly separate the bladder off of the lower uterine segment with sharp and blunt dissection. Once the bladder was appropriately dissected off of the lower uterine segment. Bilateral uterine arteries were clamped, cauterized and cut using the Ligasure. Transection was carried through the cardinal ligament bilaterally. Hemostasis was noted. At the level of the colpotomy cup, the vaginal vault was incised circumferentially with the Ligasure monopolar hook. The uterus and cervix was pulled into the vagina and left in the vagina to hold pneumoperitoneum. The vaginal vault was closed with the Endostitch V-Lock barbed stitch. Pelvis was irrigated. Intraabdominal pressure was decreased to 5 mm Hg. Hemostasis was noted. Destin was applied over bilateral pedicles and closed vaginal vault. RLQ and LLQ trocars were removed under direct laparoscopic visualization. Pneumoperitoneum was released into the atmosphere. Infraumbilical trocar was removed under direct laparoscopic visualization to ensure no herniation of bowel or omentum. Skin incisions were reapproximated with 3-0 Vicryl. Dermabond was applied over closed skin incisions. Attention was turned to the vagina. Specimen was removed from the vagina and handed off of the sterile field. Catheter was removed from the bladder. Patient was awakened from anesthesia and taken to recovery in stable condition. Condition: stable Disposition: floor Specimens:: 1. Uterus, cervix, bilateral fallopian tubes Complications:: None
--- NOTE | 2024-12-09 09:13 | EXP.ANES.I ---
[facility] Anesthesia Record Part I Anesthesia Record I Intake, IV Amount: 800 Hydration: Adequate Estimated blood loss (mL): 5 Urine output (mL): 0 Blood Products used (#): none Blood Pressure: 114/77 SaO2: 97 Pulse Rate: 90 Airway Patency: Patent Respiratory Rate: 18 Temperature: 97.4 F Patient is:: Drowsy and Stable Stable to PACU at:: 09:05
[2024-12-09] MEDS: MEPERIDINE 25MG/ML 1ML SYRINGE 12.5 MG IV (09:35)
[2024-12-09] MEDS: HYDROMORPHONE 2MG/ML SYRINGE 1 MG IV ×2 (09:36→20:46)
[2024-12-09] MEDS: LACTATED RINGERS 1000ML 1,000 ML 125 ML IV ×2 (10:40→18:56)
--- NOTE | 2024-12-09 10:47 | P.PNANES_ITS ---
[facility] Anesthesia Record Part II Anesthesia Record Part II Discharge Time: 09:45 Destination: Obstetric PACU nurse assessment reviewed?: Yes Patient Condition:: Good Anesthesia Complications:: None Swallowing reflex intact?: Yes Airway Patency: Patent Cyanosis?: No Blood Pressure: 117/78 SaO2: 100 Respiratory Rate: 20 Pulse Rate: 79 Temperature: 97.5 F Mental Status: Alert & Oriented Pain level:: 0 Nausea and/or vomitting:: None Intake, IV Amount: 0 Hydration: Adequate
[2024-12-09] MEDS: HYDROMORPHONE 2MG/ML SYRINGE 0.5 MG IV (11:15)
[2024-12-09] MEDS: OXYCODONE 5MG IMMEDIATE RELEASE TABLET 5 MG PO ×2 (14:12→18:13)
[2024-12-09] MEDS: SENNOSIDES 8.6MG/DOCUSATE 50MG TABLET 1 TAB PO (14:12)
[2024-12-09] MEDS: KETOROLAC 30MG/ML VIAL 30 MG IV ×2 (15:03→20:00)
[2024-12-09] MEDS: CEFAZOLIN SODIUM 1 GM in 0.9 % SODIUM CHLORIDE 50 ML IV ×2 (16:34→23:39)
[2024-12-09] MEDS: POLYETHYLENE GLYCOL 3350 17 GM PACKET PO (20:00)
[2024-12-09] MEDS: ONDANSETRON 4MG/2ML VIAL 4 MG IV (20:46)
[2024-12-10] MEDS: OXYCODONE 5MG IMMEDIATE RELEASE TABLET 5 MG PO ×3 (00:32→12:59)
[2024-12-10] MEDS: KETOROLAC 30MG/ML VIAL 30 MG IV (03:29)
[2024-12-10] MEDS: LACTATED RINGERS 1000ML 1,000 ML 125 ML IV (03:29)
[2024-12-10 03:37] VITALS: BP 115/62; PULSE 66; RESP 15; TEMP 36.6; O2SAT 96
[2024-12-10 03:38] VITALS: O2SAT 96
[2024-12-10 06:10] LABS: Basophils % 0.3 % (0.1-2.0); Eosinophils # 0.1 K/mm3 (0.0-0.4); Eosinophils % 0.8 % (0.1-12.0); Hematocrit 33.6 % (37.0-47.0); Hemoglobin 11.5 g/dL (12.2-16.2); Lymphocytes # 3.1 K/mm3 (0.7-4.5); Lymphocytes % 28.9 % (10-50); Mean Corpuscular HGB Conc 34.2 g/dL (31.8-35.4); Mean Corpuscular Hemoglobin 29.9 pg (27.0-31.2); Mean Corpuscular Volume 87.3 fl (81-99); Mean Platelet Volume 10.6 fl (7.4-10.4); Monocytes # 0.9 K/mm3 (0.1-1.0); Monocytes % 8.6 % (1.7-9.3); Neutrophils # 6.5 K/mm3 (1.8-7.8); Neutrophils % 61.1 % (37.0-80.0); Platelet Count 183 K/mm3 (142-424); Red Blood Count 3.85 M/mm3 (4.20-5.40); Red Cell Distribution Width 12.7 % (11.5-17.5); White Blood Count 10.6 K/mm3 (4.8-10.8)
[2024-12-10] MEDS: ACETAMINOPHEN 500MG TAB 1000 MG PO ×2 (06:43→12:58)
[2024-12-10] MEDS: diphenhydrAMINE 25MG CAPSULE 25 MG PO (08:38)
[2024-12-10] MEDS: IBUPROFEN 400 MG TABLET 800 MG PO (08:38)
[2024-12-10] MEDS: POLYETHYLENE GLYCOL 3350 17 GM PACKET PO (08:38)
[2024-12-10 08:46] VITALS: BP 104/70; PULSE 81; RESP 16; TEMP 36.8; O2SAT 98
--- NOTE | 2024-12-10 09:27 | PC.NURSE ---
Pt. up to shower. Spouse in room helping pt. shower.
--- NOTE | 2024-12-10 13:29 | P.DS_ITS ---
General Admission date:: 12/09/24 Discharge date: 12/10/24 HPI HPI HPI: POD # 1 s/p TLH, BS Feeling well overall. Pain controlled. Voiding without difficulty and passing flatus. Tolerating regular diet. Denies fever/chills, chest pain and shortness of breath. She developed a red itchy rash on cheeks with swelling in her face and down her neck overnight. She thinks it may have been a delayed response to Dilaudid. She received Benadryl this morning and reaction is much better. No lower extremity swelling or calf pain. Ambulating well ad lamont. Hospital Course Hospital Course Hospital Course: Mrs. Ashley Major is a 24 yo P2002 who presents to [facility] for scheduled surgery. She complains of dysmenorrhea, dyspareunia and hot flashes. She was taking Slynd for these symptoms. She has history of DUB and endometriosis. She is following with neurology for migraines. She was getting numbness in her hands and feet with her migraines. Since starting Slynd the pain is still unbearable and her has to care for their two children when she is on her period. The pain puts her in bed. She reports she bled from 07/24/24 - 08/24/24... heavy bleeding with clots. She then bled again 08/17/24 -08/27/24 and 08/28/24-09/07. 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 She desires definitive surgical intervention with hysterectomy. P2002. History of x 2. Surgical history - tonsillectomy and wisdom teeth extraction. She had a total laparoscopic hysterectomy with bilateral salpingectomy on 12/09/24. She did well postoperatively. Pain controlled. Voiding without difficulty and passing flatus. Tolerating regular diet. Denies fever/chills, chest pain and shortness of breath. She developed a red itchy rash on cheeks with swelling in her face and down her neck overnight. She thinks it may have been a delayed response to Dilaudid. She received Benadryl this morning and reaction is much better. No lower extremity swelling or calf pain. Ambulating well ad lamont. Vital signs stable, afebrile. Heart regular rate and rhythm. Lungs clear to ascultation. Abdomen soft, nontender, good BS in all 4 quadrants. Laparoscopic incisions clean/dry/intact with Dermabond in place. She was discharged home on POD # 1 with instructions to follow-up in the office in 2 weeks or sooner if needed. Exam Data for Last 24 hours Vital signs and Labs for Last 24 Hours: Temp Pulse Resp BP Pulse Ox O2 Del Method 98.3 F 81 16 104/70 L 98 Room Air 12/10/24 08:46 12/10/24 08:46 12/10/24 08:46 12/10/24 08:46 12/10/24 08:46 12/10/24 11:26 Laboratory Results - last 24 hr 12/10/24 05:43: WBC 10.6 D, RBC 3.85 L, Hgb 11.5 L, Hct 33.6 L, MCV 87.3, MCH 29.9, MCHC 34.2, RDW 12.7, Plt Count 183, MPV 10.6 H, Neut % (Auto) 61.1, Lymph % (Auto) 28.9, Stanly % (Auto) 8.6, Eos % (Auto) 0.8, Baso % (Auto) 0.3, Neut # (Auto) 6.5, Lymph # (Auto) 3.1, Stanly # (Auto) 0.9, Eos # (Auto) 0.1, Baso # (Auto) 0.0 I & O for Last 24 hours: Intake & Output 12/07/24 12/08/24 12/09/24 12/10/24 23:59 23:59 23:59 23:59 Intake Total 800 / 800 Output Total 0 / 0 0 / 0 Balance 800 / 800 0 / 0 Weight 133 lb Constitutional Constitutional: no acute distress and cooperative *Routine HEENT Exam Head: Present normocephalic and atraumatic Eye: Absent conjunctivae pink ENT: Present mucous membranes moist *Routine Neck Exam Neck: Present full ROM *Routine Respiratory Exam Respiratory: Present CTA bilaterally and normal respiratory effort *Routine Cardiovascular Exam Cardiovascular: Present RRR *Routine Abdominal Exam Abdominal: Present soft and normoactive bowel sounds; Absent tenderness or distended Comments: Laparoscopic incisions clean/dry/intact with Dermabond over top *Routine Rectal Exam Patient deferred: visual exam *Routine Exam Patient deferred: external exam *Routine Extremities Exam Extremities: Present full ROM; Absent edema or calf tenderness *Routine Neurological Exam Neurological: Present alert, moving all extremities and normal speech Routine Psychiatric Exam Psychiatric: Present normal affect and cooperative Results Data Completed and Pending Labs on day of discharge: Labs from last 24 hours 12/10/24 05:43 WBC 10.6 D RBC 3.85 L Hgb 11.5 L Hct 33.6 L MCV 87.3 MCH 29.9 MCHC 34.2 RDW 12.7 Plt Count 183 MPV 10.6 H Neut % (Auto) 61.1 Lymph % (Auto) 28.9 Stanly % (Auto) 8.6 Eos % (Auto) 0.8 Baso % (Auto) 0.3 Neut # (Auto) 6.5 Lymph # (Auto) 3.1 Stanly # (Auto) 0.9 Eos # (Auto) 0.1 Baso # (Auto) 0.0 DS: Diagnosis Discharge Diagnosis (1) S/P laparoscopic hysterectomy: Status: Acute Code(s): Z90.710 - Acquired absence of both cervix and uterus Problem details: S/p TLH, BS on 12/09/24 (2) Chronic pelvic pain in female: Status: Acute Code(s): R10.2 - Pelvic and perineal pain; G89.29 - Other chronic pain (3) Endometriosis: Status: Acute Code(s): N80.9 - Endometriosis, unspecified (4) Dysmenorrhea: Status: Chronic Code(s): N94.6 - Dysmenorrhea, unspecified (5) Dyspareunia: Status: Acute (6) DUB (dysfunctional uterine bleeding): Status: Acute Code(s): N93.8 - Other specified abnormal uterine and vaginal bleeding Meds Home Medications and Allergies Home Medications ?Medication ?Instructions ?Recorded ?Confirmed ?Type albuterol sulfate 90 mcg/actuation 2 puff inhalation Q6HP PRN 12/01/23 12/09/24 History aerosol inhaler (Ventolin HFA) shortness of breath or wheezing atogepant 60 mg tablet (Qulipta) 60 mg PO DAILY 12/09/24 12/09/24 History labetalol 100 mg tablet 100 mg PO BID 12/09/24 12/09/24 History ondansetron 4 mg disintegrating 4 mg PO Q6HP PRN nausea and 12/09/24 12/09/24 History tablet vomiting rimegepant 75 mg disintegrating 75 mg PO DIRECTED PRN migraine 12/09/24 12/09/24 History tablet (Nurtec ODT) headache ibuprofen 800 mg tablet 800 mg PO Q8H PRN pain #20 tabs 12/10/24 Rx oxycodone 5 mg tablet 5 mg PO Q4HP PRN Moderate Pain 12/10/24 Rx (4-6) #20 tabs New Prescriptions to Start Prescriptions: ibuprofen Liz Mireles oxycodone Liz Mireles Allergies Allergy/AdvReac Type Severity Reaction Status Date / Time cinnamon Allergy Mild rash Verified 12/09/24 06:27 hydromorphone AdvReac Intermediate Rash Verified 12/10/24 08:58 Discharge Plan Disposition Patient Disposition: Home, Self-Care Condition: Good Follow up Plan Follow up with: Liz Mireles DO [Staff Physician] - 12/22/24 3:30 pm Prescriptions/Medication Reconciliation: New oxycodone 5 mg Tablet 5 mg PO Q4HP PRN (Reason: Moderate Pain (4-6)) Qty: 20 0RF ibuprofen 800 mg tablet 800 mg PO Q8H PRN (Reason: pain) Qty: 20 0RF Continued albuterol sulfate [Ventolin HFA] 90 mcg/actuation HFA aerosol inhaler 2 puff inhalation Q6HP PRN (Reason: shortness of breath or wheezing) labetalol 100 mg tablet 100 mg PO BID ondansetron 4 mg tablet,disintegrating 4 mg PO Q6HP PRN (Reason: nausea and vomiting) Nurtec ODT 75 mg tablet,disintegrating 75 mg PO DIRECTED PRN (Reason: migraine headache) Qulipta 60 mg tablet 60 mg PO DAILY Discontinued Slynd 4 mg (28) tablet 4 mg PO DAILY Qty: 84 0RF Problem Reconciliation Problems Reviewed?: Yes Patient Discharge Instructions ACTIVITY: Limited activity DIET: continue same diet and regular diet Additional Instructions: You had a total laparoscopic hysterectomy and bilateral salpingectomy. This means that your uterus, cervix, and fallopian tubes were removed. The top of your vagina is closed with dissolvable sutures. Removing your fallopian tubes decreases your lifetime risk of ovarian cancer. You will follow-up in office for a postop visit at 2 weeks and at 6 weeks. At your 6-week postop appointment you will have a pelvic exam to ensure your cuff is healing well. Activity: - No lifting more than 10 lbs for 6 weeks. - No driving while you are taking narcotic pain medication - Nothing in the vagina for 6 weeks (no tampons, no intercourse) - No tub baths/hot tubs or swimming pools for 6 weeks Medications: - Ibuprofen (a nonsteroidal anti-inflammatory) for pain. Please take the ibuprofen scheduled every 8 hours for the first 2-3 days as this will help control your pain - Tylenol 500 mg for pain. Take 1-2 tablets every 6 hours scheduled fro the first 2-3 days as this will also help with pain. - Oxycodone 5 mg every 4 hours as needed (a narcotic pain medication). Use the narcotic pain medication for breakthrough or severe pain. You will want to stop the narcotic pain medication first. - Miralax (a stool softener) use twice daily the first 3 days after surgery then as need for constipation. General anesthesia and narcotics can increase your risk for constipation - Simethicone: a gas medication for bloating and gas pain you may experience in the next 1-2 weeks. Please call the office or return to the ER if you have any of the followin. Heavy vaginal bleeding 2. Pain that does not respond to your narcotic pain medication 3. Fever/chills Questions or concerns: It is my privilege to be your doctor. Please let me know if you have other questions or concerns. Liz Mireles DO [facility] [place], [place] [address] Patient Instructions: DI for Hysterectomy, DI for Postoperative Pain, Hysterectomy -- Laparoscopic Surgery, How to Care for a Surgical Wound-Skin Glue Print Language: Com[place]an Providers Primary Care Provider: Karyn Barreto Admit Provider: Liz Mireles Attending Provider: Liz Mireles
--- NOTE | 2024-12-10 14:55 | PC.NURSE ---
14:25- Discharge education provided, questions encouraged and answered. Pt. v/u.
== END 2024-12-10 14:35 | disposition home or self-care (01) ==
LOC: OB 06:40
PROVIDERS: Admitting Provider Obstetrics & Gynecology; PCP Nurse Practitioner; Visit Provider Obstetrics & Gynecology
PROC: (CPT 58571; principal; 2024-12-09 07:30)
DX: R10.2 Pelvic and perineal pain (principal); N80.399 Endometriosis of the pelvic peritoneum, other specified sites, unspecified depth; N94.10 Unspecified dyspareunia; F17.210 Nicotine dependence, cigarettes, uncomplicated; Z79.899 Other long term (current) drug therapy
CPT/HCPCS: 58571; 85025; 96374; J3490; C9144; G0378; J0690; J1100; J1171; J1885; J2175; J2250; J2405; J3010; J7030; J7120

== ENCOUNTER 2025-01-27 19:29 | Emergency (ER) | payer OTHER, SELFPAY ==
[2025-01-27] VITALS (10 sets, daily range): BP systolic 103–117; BP diastolic 59–78; PULSE 71–90; RESP 16–18; TEMP 36.8–37.2; O2SAT 94–99; BMI 20.9
--- NOTE | 2025-01-27 19:29 | ECG_ITS ---
APPROVED REPORT Exam: Resting ECG HR:84 bpm ECG Measurements Heart Rate 84 AXES ID 144 P 76 QRSd 98 QRS 86 QT 366 T 53 QTc 407 Conclusion Sinus rhythm Electronically signed by : ISAIAS COLBERT, 01/29/2025 12:23:22
--- NOTE | 2025-01-27 19:42 | [facility].EDGENADL ---
Discharge Plan Disposition Patient Disposition: Home, Self-Care Chief Complaint: Syncope Prescriptions Prescriptions: No Action albuterol sulfate [Ventolin HFA] 90 mcg/actuation HFA aerosol inhaler 2 puff inhalation Q6HP PRN (Reason: shortness of breath or wheezing) labetalol 100 mg tablet 100 mg PO BID ondansetron 4 mg tablet,disintegrating 4 mg PO Q6HP PRN (Reason: nausea and vomiting) Nurtec ODT 75 mg tablet,disintegrating 75 mg PO DIRECTED PRN (Reason: migraine headache) Qulipta 60 mg tablet 60 mg PO DAILY ibuprofen 800 mg tablet 800 mg PO Q8H PRN (Reason: pain) Qty: 20 0RF Referrals Follow up/Referrals: Karyn Barreto APRN [Primary Care Provider] - See instructions Nikunj Griffith MD [Staff Physician] - See instructions Activity Restrictions/Add. Instructions Additional Instructions/Restrictions: Call your family doctor to establish care for this visit to the emergency department and schedule follow-up within 48 hours to ensure improvement. If you have any worsening of your condition or any other concerning signs or symptoms, return to the emergency department or your primary care doctor for further evaluation. Cardiology information also here, follow-up with them regarding this visit to the emergency department for syncope (passing out) for further workup. Clinical Impressions Clinical Impression: Syncope and collapse Instructions Patient Instructions: DI for Syncope in Adults (Fainting), DI for Syncope in Children (Fainting) Print Language Print Language: German Discharge ED Provider: Justin Desai General Adult HPI <GENE Wlison - Last Filed: 01/27/25 21:38> General Chief complaint: Syncope Stated complaint: possible seziure Time Seen by Provider: 01/27/25 19:42 History of Present Illness HPI narrative: Patient presents for evaluation of syncope and collapse. Patient reports that she had an episode of syncope this afternoon. Her symptoms started after on her way home from work today. Patient states that she started having some low back pain and when she got home she started feeling lightheaded and laid down on the floor at which point she reportedly passed out. Patient reports that her father said that she was unresponsive briefly. Patient does have a history of tachycardia and is maintained on Lopressor 100 mg twice a day but has not taken it for the last 2 days. She also has been evaluated for POTS as her twin sister has that diagnosis but has not been formally diagnosed. Patient states that the precipitating event was low back pain that she attributed to sciatica that she developed during her . She said her back began hurting prior to her symptoms beginning. Patient has returned recently returned to work after being off after a total abdominal hysterectomy. She currently denies chest pain shortness of breath fever chills hemoptysis hematochezia melena nausea vomiting diarrhea abdominal pain. Related Data Home Medications ?Medication ?Instructions ?Recorded ?Confirmed albuterol sulfate 90 mcg/actuation 2 puff inhalation Q6HP PRN 12/01/23 01/24/25 aerosol inhaler (Ventolin HFA) shortness of breath or wheezing atogepant 60 mg tablet (Qulipta) 60 mg PO DAILY 12/09/24 01/24/25 labetalol 100 mg tablet 100 mg PO BID 12/09/24 01/24/25 ondansetron 4 mg disintegrating 4 mg PO Q6HP PRN nausea and 12/09/24 01/24/25 tablet vomiting rimegepant 75 mg disintegrating 75 mg PO DIRECTED PRN migraine 12/09/24 01/24/25 tablet (Nurtec ODT) headache Previous Rx's ?Medication ?Instructions ?Recorded ibuprofen 800 mg tablet 800 mg PO Q8H PRN pain #20 tabs 12/10/24 Allergies Allergy/AdvReac Type Severity Reaction Status Date / Time cinnamon Allergy Mild rash Verified 01/24/25 14:53 hydromorphone AdvReac Intermediate Rash Verified 01/24/25 14:53 PFS <GENE Wilson - Last Filed: 01/27/25 21:38> [facility] Disclaimer: The information contained in this section may have been updated after the patient was seen, as this information can be updated by other users. Medical History Dysphagia Asthma Tachycardia Migraine Dyspareunia Dysmenorrhea Hot flashes Contraception management Syncope Panic attack Acute blood loss anemia Eczema Endometriosis Chronic pelvic pain in female Surgical History S/P laparoscopic hysterectomy S/p TLH, BS on 12/09/24 Hx of wisdom tooth extraction Hx of tonsillectomy Family History Grandmother Cancer breast Other Asthma Diabetes Social History Smoking Status: Current every day smoker tobacco type: cigarettes and e-cigarettes alcohol intake: never substance use type: denies use current occupational status: employed Travel in the last 8 weeks: None Have you lived/traveled outside [place] in past 30 days?: No Contact w/someone who lives/traveled outside US past 30 days?: No Exposure to someone with infectious disease in past 14 days?: No Do you have a fever (greater than 100.4 F or 38 C)?: No Have you tested positive for COVID-19: No Exposed to someone with COVID-19 in past 14 days?: No Do you have a sore throat?: No Do you have a cough?: No Do you have any weakness?: No Do you have any diarrhea?: No Are you experiencing any unusual bleeding?: No Do you have any muscle aches/pain?: No Do you have any abdominal pain?: No Are you experiencing loss of taste or smell?: No Other Medical History Have you received the Flu Vaccine for this season: No Have you received the Pneumonia Vaccine: No <GENE Wilson - Last Filed: 01/27/25 21:38> ROS Obtained: Yes Systems reviewed as appropriate & no additional complaints except as documented Physical Exam <GENE Wilson - Last Filed: 01/27/25 21:38> General General appearance: alert and in no apparent distress Respiratory Respiratory exam: Present normal lung sounds bilaterally Cardiovascular Cardiovascular exam: Present regular rate Neurological Exam Neurological exam: Present alert and oriented X3 Medical Decision Making <GENE Wilson - Last Filed: 01/27/25 21:38> Medical Records Medical records reviewed: Yes I reviewed the patient's medical records. Screening: Per USPSTF and CDC recommendations, given the prevalence of disease in our region, it is our hospital?s policy to screen for HIV and viral Hepatitis for all patients aged 18 and over and those with ongoing risk factors. Ez Inquiry Pt receiving controlled substance: No Vital Signs: 01/27/25 19:31 01/27/25 19:43 01/27/25 19:45 Temperature 98.2 F 98.9 F Temperature Source Oral Oral Pulse Rate 88 83 Pulse Rate [Right Radial] 90 Respiratory Rate 18 16 Blood Pressure 114/78 Blood Pressure [Right Arm] 114/78 Blood Pressure Mean [Right Arm] 90 Blood Pressure Source [Right Arm] Automatic Cuff Blood Pressure Position [Right Arm] Supine 02 Sat by Pulse Oximetry 98 99 94 L Oxygen Delivery Method Room Air Room Air 01/27/25 20:00 01/27/25 20:30 01/27/25 20:45 Temperature Temperature Source Pulse Rate 81 80 80 Pulse Rate [Right Radial] Respiratory Rate Blood Pressure 108/71 L 110/75 Blood Pressure [Right Arm] Blood Pressure Mean [Right Arm] Blood Pressure Source [Right Arm] Blood Pressure Position [Right Arm] 02 Sat by Pulse Oximetry 98 97 98 Oxygen Delivery Method 01/27/25 21:00 01/27/25 22:15 01/27/25 22:30 Temperature Temperature Source Pulse Rate 83 88 82 Pulse Rate [Right Radial] Respiratory Rate Blood Pressure 117/68 106/59 L Blood Pressure [Right Arm] Blood Pressure Mean [Right Arm] Blood Pressure Source [Right Arm] Blood Pressure Position [Right Arm] 02 Sat by Pulse Oximetry 98 97 97 Oxygen Delivery Method Lab Data Lab results reviewed: Yes I reviewed the patient's lab results. Lab Results 01/27/25 19:40: WBC 8.9, RBC 4.66, Hgb 14.0, Hct 40.7, MCV 87.3, MCH 30.0, MCHC 34.4, RDW 12.4, Plt Count 220, MPV 10.6 H, Neut % (Auto) 53.1, Lymph % (Auto) 38.1, [place] % (Auto) 7.2, Eos % (Auto) 1.0, Baso % (Auto) 0.3, Neut # (Auto) 4.7, Lymph # (Auto) 3.4, [place] # (Auto) 0.6, Eos # (Auto) 0.1, Baso # (Auto) 0.0, D-Dimer 0.79 H, Sodium 141, Potassium 3.8, Chloride 106, Carbon Dioxide 27, Anion Gap 11.8, BUN 6 L, Creatinine 0.60, Estimated Creat Clear 140, Estimated GFR 124, Est GFR ( Amer) 150, Glucose 87, Calcium 9.8, Magnesium 2.4 H, Total Bilirubin 0.4, AST 30, ALT 19, Alkaline Phosphatase 60, Total Creatine Kinase 87, C-Reactive Protein 0.8, Total Protein 7.3, Albumin 4.7, Globulin 2.6, Albumin/Globulin Ratio 1.8, Serum HCG, Qual Negative 01/27/25 20:57: Lactate 0.9, Urine Color Yellow, Urine Appearance Clear, Urine pH 7.0, Ur Specific [place] 1.015, Urine Protein Negative, Urine Glucose (UA) Negative, Urine Ketones Negative, Urine Blood Negative, Urine Nitrate Negative, Urine Bilirubin Negative, Urine Urobilinogen 0.2, Ur Leukocyte Esterase Negative, Urine RBC None, Urine WBC 3-5, Ur Squamous Epith Cells 5-10, Urine Bacteria 1+ 01/27/25 19:40 01/27/25 19:40 Orders (Tests/Meds): ED MEDICATIONS Generic Name Dose Route Start Last Admin Trade Name Freq PRN Reason Stop Dose Admin Sodium Chloride 10 ml 01/27/25 22:05 01/27/25 22:06 Sodium Chloride 0.9% 10ml Syr (Rad Only) IV 02/26/25 22:04 10 ml NEEDED PRN Administration Maintain IV Site Discontinued Medications Generic Name Dose Route Start Last Admin Trade Name Freq PRN Reason Stop Dose Admin Acetaminophen 1,000 mg 01/27/25 21:31 01/27/25 22:11 Acetaminophen 500mg Tab PO 01/27/25 21:32 1,000 mg ONCE ONE Administration Dexamethasone Sodium Phosphate 10 mg 01/27/25 21:31 01/27/25 22:11 Dexamethasone 4mg/Ml 5ml Mdv IV 01/27/25 21:32 10 mg ONCE ONE Administration Iopamidol 150 ml 01/27/25 22:05 01/27/25 22:06 Iopamidol-370 (76%);100ml Bottle IV 01/27/25 22:06 150 ml ONCE ONE Administration Ketorolac Tromethamine 15 mg 01/27/25 21:31 01/27/25 22:11 Ketorolac 30mg/Ml Vial IV 01/27/25 21:32 15 mg ONCE ONE Administration Lidocaine 1 each 01/27/25 21:31 01/27/25 22:11 Lidocaine 5% Transdermal Patch TD 01/27/25 21:32 1 each ONCE ONE Administration Methocarbamol 500 mg 01/27/25 21:31 01/27/25 22:11 Methocarbamol 500mg Tablet PO 01/27/25 21:32 500 mg ONCE ONE Administration Sodium Chloride 100 ml 01/27/25 22:05 01/27/25 22:06 0.9 % Sodium Chloride 50 Ml Vial IV 01/27/25 22:06 100 ml ONCE ONE Administration ORDERS Category Date Time Status CT angio chest PE protocol Stat Cat Scan 01/27/25 20:[address] angio head Stat Cat Scan 01/27/25 20:[address] angio neck Stat Cat Scan 01/27/25 20:[address] head/brain wo con Stat Cat Scan 01/27/25 20:40 Completed Chest XR 2 view (NOT portable) [XR chest 2V] Stat Exams 01/27/25 19:51 Completed CBC w/Auto Diff [Complete Blood Count Auto Diff] Stat Lab 01/27/25 19:40 Completed CK [Creatine Kinase] Stat Lab 01/27/25 19:40 Completed CMP [Comprehensive Metabolic Panel] Stat Lab 01/27/25 19:40 Completed CRP [C-Reactive Protein] Stat Lab 01/27/25 19:40 Completed D-Dimer Stat Lab 01/27/25 19:40 Completed HCG Qualitative, Serum Stat Lab 01/27/25 19:40 Completed Lactic Acid Stat Lab 01/27/25 20:57 Completed Magnesium Stat Lab 01/27/25 19:40 Completed UA [Urinalysis and Microscopic] Stat Lab 01/27/25 20:57 Completed HEART Score History (anamnesis): Slightly suspicious ECG: Normal Age: <45 years Risk factors: No known risk factors Troponin: </= normal limit HEART Score: 0 Medical Decision Narrative: In summary patient is a 24-year-old female who presents to the emergency department for evaluation of syncope. Patient is currently hemodynamically stable with a blood pressure 114/78 pulse 88 respiratory rate 18 temperature is 98.2 satting at 98% on room air upon arriva. Physical exam is remarkable for a Jaelel Coma Score 15 pupils equal round reactive to light cranial nerves II through XII are intact grossly to exam left Coma score is 15 patient has no nuchal rigidity or meningeal signs breath sounds clear and equal bilaterally to the bases without adventitious sounds increased work of breathing or accessory muscle use, abdomen soft nontender no rebound or guarding or rigidity normal bowel sounds, patient has full range of motion all 4 extremities has no focal neurologic deficits. Patient is tender to palpation in the left lumbar paraspinous muscle area without contusions abrasions bony deformity.. Differential diagnosis includes vasovagal syncope versus sciatica versus electrolyte abnormality versus occult infection versus cardiac arrhythmia etc. Initial workup will be conducted with plain film chest x-ray hematologic labs urinalysis. Initial interventions include crystalloid bolus Tylenol Toradol Decadron Lidoderm patch and Robaxin. Initial workup reviewed ordered and pending at the time of handoff to Dr. Potter at 2200 hrs. <Justin Desai MD - Last Filed: 01/27/25 23:11> Vital Signs: 01/27/25 19:31 01/27/25 19:43 01/27/25 19:45 Temperature 98.2 F 98.9 F Temperature Source Oral Oral Pulse Rate 88 83 Pulse Rate [Right Radial] 90 Respiratory Rate 18 16 Blood Pressure 114/78 Blood Pressure [Right Arm] 114/78 Blood Pressure Mean [Right Arm] 90 Blood Pressure Source [Right Arm] Automatic Cuff Blood Pressure Position [Right Arm] Supine 02 Sat by Pulse Oximetry 98 99 94 L Oxygen Delivery Method Room Air Room Air 01/27/25 20:00 01/27/25 20:30 01/27/25 20:45 Temperature Temperature Source Pulse Rate 81 80 80 Pulse Rate [Right Radial] Respiratory Rate Blood Pressure 108/71 L 110/75 Blood Pressure [Right Arm] Blood Pressure Mean [Right Arm] Blood Pressure Source [Right Arm] Blood Pressure Position [Right Arm] 02 Sat by Pulse Oximetry 98 97 98 Oxygen Delivery Method 01/27/25 21:00 01/27/25 22:15 01/27/25 22:30 Temperature Temperature Source Pulse Rate 83 88 82 Pulse Rate [Right Radial] Respiratory Rate Blood Pressure 117/68 106/59 L Blood Pressure [Right Arm] Blood Pressure Mean [Right Arm] Blood Pressure Source [Right Arm] Blood Pressure Position [Right Arm] 02 Sat by Pulse Oximetry 98 97 97 Oxygen Delivery Method Lab Data Lab Results 01/27/25 19:40: WBC 8.9, RBC 4.66, Hgb 14.0, Hct 40.7, MCV 87.3, MCH 30.0, MCHC 34.4, RDW 12.4, Plt Count 220, MPV 10.6 H, Neut % (Auto) 53.1, Lymph % (Auto) 38.1, [place] % (Auto) 7.2, Eos % (Auto) 1.0, Baso % (Auto) 0.3, Neut # (Auto) 4.7, Lymph # (Auto) 3.4, [place] # (Auto) 0.6, Eos # (Auto) 0.1, Baso # (Auto) 0.0, D-Dimer 0.79 H, Sodium 141, Potassium 3.8, Chloride 106, Carbon Dioxide 27, Anion Gap 11.8, BUN 6 L, Creatinine 0.60, Estimated Creat Clear 140, Estimated GFR 124, Est GFR ( Amer) 150, Glucose 87, Calcium 9.8, Magnesium 2.4 H, Total Bilirubin 0.4, AST 30, ALT 19, Alkaline Phosphatase 60, Total Creatine Kinase 87, C-Reactive Protein 0.8, Total Protein 7.3, Albumin 4.7, Globulin 2.6, Albumin/Globulin Ratio 1.8, Serum HCG, Qual Negative 01/27/25 20:57: Lactate 0.9, Urine Color Yellow, Urine Appearance Clear, Urine pH 7.0, Ur Specific [place] 1.015, Urine Protein Negative, Urine Glucose (UA) Negative, Urine Ketones Negative, Urine Blood Negative, Urine Nitrate Negative, Urine Bilirubin Negative, Urine Urobilinogen 0.2, Ur Leukocyte Esterase Negative, Urine RBC None, Urine WBC 3-5, Ur Squamous Epith Cells 5-10, Urine Bacteria 1+ Orders (Tests/Meds): ED MEDICATIONS Generic Name Dose Route Start Last Admin Trade Name Freq PRN Reason Stop Dose Admin Sodium Chloride 10 ml 01/27/25 22:05 01/27/25 22:06 Sodium Chloride 0.9% 10ml Syr (Rad Only) IV 02/26/25 22:04 10 ml NEEDED PRN Administration Maintain IV Site Discontinued Medications Generic Name Dose Route Start Last Admin Trade Name Freq PRN Reason Stop Dose Admin Acetaminophen 1,000 mg 01/27/25 21:31 01/27/25 22:11 Acetaminophen 500mg Tab PO 01/27/25 21:32 1,000 mg ONCE ONE Administration Dexamethasone Sodium Phosphate 10 mg 01/27/25 21:31 01/27/25 22:11 Dexamethasone 4mg/Ml 5ml Mdv IV 01/27/25 21:32 10 mg ONCE ONE Administration Iopamidol 150 ml 01/27/25 22:05 01/27/25 22:06 Iopamidol-370 (76%);100ml Bottle IV 01/27/25 22:06 150 ml ONCE ONE Administration Ketorolac Tromethamine 15 mg 01/27/25 21:31 01/27/25 22:11 Ketorolac 30mg/Ml Vial IV 01/27/25 21:32 15 mg ONCE ONE Administration Lidocaine 1 each 01/27/25 21:31 01/27/25 22:11 Lidocaine 5% Transdermal Patch TD 01/27/25 21:32 1 each ONCE ONE Administration Methocarbamol 500 mg 01/27/25 21:31 01/27/25 22:11 Methocarbamol 500mg Tablet PO 01/27/25 21:32 500 mg ONCE ONE Administration Sodium Chloride 100 ml 01/27/25 22:05 01/27/25 22:06 0.9 % Sodium Chloride 50 Ml Vial IV 01/27/25 22:06 100 ml ONCE ONE Administration ORDERS Category Date Time Status CT angio chest PE protocol Stat Cat Scan 01/27/25 20:[address] angio head Stat Cat Scan 01/27/25 20:[address] angio neck Stat Cat Scan 01/27/25 20:[address] head/brain wo con Stat Cat Scan 01/27/25 20:40 Completed Chest XR 2 view (NOT portable) [XR chest 2V] Stat Exams 01/27/25 19:51 Completed CBC w/Auto Diff [Complete Blood Count Auto Diff] Stat Lab 01/27/25 19:40 Completed CK [Creatine Kinase] Stat Lab 01/27/25 19:40 Completed CMP [Comprehensive Metabolic Panel] Stat Lab 01/27/25 19:40 Completed CRP [C-Reactive Protein] Stat Lab 01/27/25 19:40 Completed D-Dimer Stat Lab 01/27/25 19:40 Completed HCG Qualitative, Serum Stat Lab 01/27/25 19:40 Completed Lactic Acid Stat Lab 01/27/25 20:57 Completed Magnesium Stat Lab 01/27/25 19:40 Completed UA [Urinalysis and Microscopic] Stat Lab 01/27/25 20:57 Completed ECG Data Tracing #1: I reviewed this ECG and interpreted as documented below: (Sinus rhythm 84 bpm with MA 144, QRS 98, QTc 4 7. No acute ischemic change. No electrical abnormalities. Normal axis) HEART Score HEART Score: 0 Medical Decision Narrative: In summary patient is a 24-year-old female who presents to the emergency department for evaluation of syncope. Patient is currently hemodynamically stable with a blood pressure 114/78 pulse 88 respiratory rate 18 temperature is 98.2 satting at 98% on room air upon arriva. Physical exam is remarkable for a [place] Coma Score 15 pupils equal round reactive to light cranial nerves II through XII are intact grossly to exam left Coma score is 15 patient has no nuchal rigidity or meningeal signs breath sounds clear and equal bilaterally to the bases without adventitious sounds increased work of breathing or accessory muscle use, abdomen soft nontender no rebound or guarding or rigidity normal bowel sounds, patient has full range of motion all 4 extremities has no focal neurologic deficits. Patient is tender to palpation in the left lumbar paraspinous muscle area without contusions abrasions bony deformity.. Differential diagnosis includes vasovagal syncope versus sciatica versus electrolyte abnormality versus occult infection versus cardiac arrhythmia etc. Initial workup will be conducted with plain film chest x-ray hematologic labs urinalysis. Initial interventions include crystalloid bolus Tylenol Toradol Decadron Lidoderm patch and Robaxin. Initial workup reviewed ordered and pending at the time of handoff to Dr. Potter at 2200 hrs. I was consulted by the CASSY, and we discussed the complexity of the problems being addressed. I approved the treatment and management plan for this patient's care in the Emergency Department, thus performing a substantive portion of the medical decision making. Independent interpretation of workup with nonactionable hematologic labs other than mildly elevated D-dimer. On abundance of caution in the setting of syncope, CT scans ordered. On independent interpretation, no evidence of acute intrathoracic abnormality responsible for syncope. CTAs of the head and neck also negative and no intracranial hemorrhage. Because patient at baseline without signs or symptoms of clinical decompensation, deemed appropriate for discharge. Results were relayed to patient who voiced understanding and were agreeable to outpatient management and follow up. I discussed my clinical impression with patient and answered all questions. At this time, the evidence for any other entities in the differential is insufficient to warrant any further testing or ED observation. This was explained as well. Advisory was given that persistent or worsening symptoms require further evaluation. I confirmed the understanding of this discussion. Close return precautions discussed, recommend follow-up with family doctor. Justin Desai MD Critical Care <GENE Wilson - Last Filed: 01/27/25 21:38> Critical Care Time Critical Care Time: No
--- NOTE | 2025-01-27 19:51 | XR_ITS ---
PROCEDURE INFORMATION: Exam: XR Chest Exam date and time: 01/27/2025 9:16 PM Age: 24 years old Clinical indication: Other: Syncope TECHNIQUE: Imaging protocol: Radiologic exam of the chest. Views: 2 views. COMPARISON: CR CXR2V XR chest 2V 06/30/2018 11:36 AM FINDINGS: Lungs: There is a calcified granuloma left upper lung zone. No consolidation. No mass. Pleural spaces: Unremarkable. No pleural effusion. No pneumothorax. Heart/Mediastinum: Unremarkable. No cardiomegaly. Vasculature: Unremarkable. Bones/joints: S shaped scoliosis of the thoracolumbar spine is noted. IMPRESSION: No acute findings.
[2025-01-27 20:01] LABS: Basophils % 0.3 % (0.1-2.0); Eosinophils # 0.1 K/mm3 (0.0-0.4); Hematocrit 40.7 % (37.0-47.0); Lymphocytes # 3.4 K/mm3 (0.7-4.5); Lymphocytes % 38.1 % (10-50); Mean Corpuscular HGB Conc 34.4 g/dL (31.8-35.4); Mean Corpuscular Volume 87.3 fl (81-99); Mean Platelet Volume 10.6 fl (7.4-10.4); Monocytes # 0.6 K/mm3 (0.1-1.0); Monocytes % 7.2 % (1.7-9.3); Neutrophils # 4.7 K/mm3 (1.8-7.8); Neutrophils % 53.1 % (37.0-80.0); Platelet Count 220 K/mm3 (142-424); Red Blood Count 4.66 M/mm3 (4.20-5.40); Red Cell Distribution Width 12.4 % (11.5-17.5); White Blood Count 8.9 K/mm3 (4.8-10.8)
[2025-01-27 20:10] LABS: HCG Qualitative, Serum Negative (Negative)
[2025-01-27 20:11] LABS: Alanine Aminotransferase 19 U/L (12-78); Albumin Level 4.7 g/dl (3.5-5.0); Albumin/Globulin Ratio 1.8 (1.1-1.8); Alkaline Phosphatase 60 U/L (38-126); Anion Gap 11.8 mEq/L (5-15); Aspartate Amino Transferase 30 U/L (14-36); Bilirubin,Total 0.4 mg/dl (0.2-1.3); Blood Urea Nitrogen 6 mg/dl (7-17); Calcium 9.8 mg/dl (8.4-10.2); Carbon Dioxide 27 mmol/L (22.0-30.0); Chloride 106 mmol/L (98-107); Creatine Kinase 87 U/L (30-135); Creatinine Clearance Estimated 140 mL/min (50-200); Estimated Glomerular Filt Rate 124 ml/min (>60); GFR (African American) 150 ML/MIN (>60); Globulin 2.6 g/dL (1.3-3.2); Glucose 87 mg/dl (74-100); Magnesium 2.4 mg/dl (1.6-2.3); Potassium 3.8 mmoL/L (3.5-5.1); Sodium 141 mmol/L (136-145); Total Protein,Serum 7.3 g/dl (6.3-8.2)
[2025-01-27 20:16] LABS: C-Reactive Protein 0.8 mg/L (0-4)
[2025-01-27 20:17] LABS: D-Dimer 0.79 ug/mL (0.0-0.5)
--- NOTE | 2025-01-27 20:40 | CT_ITS ---
PROCEDURE INFORMATION: Exam: CT Head Without Contrast Exam date and time: 01/27/2025 9:58 PM Age: 24 years old Clinical indication: Syncope and collapse TECHNIQUE: Imaging protocol: Computed tomography of the head without contrast. 3D rendering (Not supervised by radiologist): MIP and/or 3D reconstructed images were created by the technologist. Radiation optimization: All CT scans at this facility use at least one of these dose optimization techniques: automated exposure control; mA and/or kV adjustment per patient size (includes targeted exams where dose is matched to clinical indication); or iterative reconstruction. COMPARISON: MR HEAD/BRAIN WO CON 02/11/2024 9:22 AM FINDINGS: Brain: Normal. No hemorrhage. Unremarkable white matter. No mass effect. Cerebral ventricles: No ventriculomegaly. Paranasal sinuses: Visualized sinuses are unremarkable. No fluid levels. Mastoid air cells: Visualized mastoid air cells are well aerated. Bones: Unremarkable. No acute fracture. Soft tissues: Unremarkable. IMPRESSION: No acute intracranial abnormality.
--- NOTE | 2025-01-27 20:40 | CT_ITS ---
PROCEDURE INFORMATION: Exam: CTA Chest With Contrast Exam date and time: 01/27/2025 10:04 PM Age: 24 years old Clinical indication: Other: Syncope; Additional info: Syncope and collapse TECHNIQUE: Imaging protocol: Computed tomographic angiography of the chest with contrast. Exam focused on the arteries. 3D rendering (Not supervised by radiologist): MIP and/or 3D reconstructed images were created by the technologist. Radiation optimization: All CT scans at this facility use at least one of these dose optimization techniques: automated exposure control; mA and/or kV adjustment per patient size (includes targeted exams where dose is matched to clinical indication); or iterative reconstruction. Contrast material: ISOVUE; Contrast volume: 70 ml; Contrast route: INTRAVENOUS (IV); COMPARISON: CR XR CHEST 2V 01/27/2025 9:16 PM FINDINGS: Pulmonary arteries: Normal. No pulmonary emboli. Aorta: Unremarkable. No aortic aneurysm. No aortic dissection. Celiac trunk and mesenteric arteries: There is an 8 mm aneurysm at the bifurcation of the splenic artery. Lungs: Left lower lobe calcified granuloma is noted. No consolidation. No mass. Pleural spaces: Unremarkable. No pneumothorax. No pleural effusion. Heart: Unremarkable. No cardiomegaly. No pericardial effusion. Lymph nodes: There are few calcified left hilar lymph nodes. Bones/joints: Scoliosis of the thoracolumbar spine. No acute fracture. Soft tissues: Unremarkable. IMPRESSION: 1. No acute findings. No pulmonary embolus. 2. 8 mm distal splenic artery aneurysm. 3. Evidence of prior granulomatous exposure.
--- NOTE | 2025-01-27 20:40 | CT_ITS ---
PROCEDURE INFORMATION: Exam: CTA Head With Contrast, Arteriography Exam date and time: 01/27/2025 10:01 PM Age: 24 years old Clinical indication: Syncope and collapse TECHNIQUE: Imaging protocol: Computed tomographic angiography of the head with contrast. Exam focused on the arteries. 3D rendering (Not supervised by radiologist): MIP and/or 3D reconstructed images were created by the technologist. Radiation optimization: All CT scans at this facility use at least one of these dose optimization techniques: automated exposure control; mA and/or kV adjustment per patient size (includes targeted exams where dose is matched to clinical indication); or iterative reconstruction. Contrast material: ISOVUE; Contrast volume: 80 ml; Contrast route: INTRAVENOUS (IV); COMPARISON: CT HEAD/BRAIN WO CON 01/27/2025 9:58 PM FINDINGS: ANTERIOR CIRCULATION: Right internal carotid artery: Intracranial segment is patent with no significant stenosis. No aneurysm. Right middle cerebral artery: No occlusion or significant stenosis. No aneurysm. Right anterior cerebral artery: No occlusion or significant stenosis. No aneurysm. Left internal carotid artery: Intracranial segment is patent with no significant stenosis. No aneurysm. Left middle cerebral artery: No occlusion or significant stenosis. No aneurysm. Left anterior cerebral artery: No occlusion or significant stenosis. No aneurysm. POSTERIOR CIRCULATION: Right vertebral artery: Right vertebral artery is dominant. Left vertebral artery: No occlusion or significant stenosis. No aneurysm. Basilar artery: No occlusion or significant stenosis. No aneurysm. Right posterior cerebral artery: No occlusion or significant stenosis. No aneurysm. Left posterior cerebral artery: No occlusion or significant stenosis. No aneurysm. IMPRESSION: No acute vascular pathology.
--- NOTE | 2025-01-27 20:40 | CT_ITS ---
PROCEDURE INFORMATION: Exam: CTA Neck With Contrast Exam date and time: 01/27/2025 10:01 PM Age: 24 years old Clinical indication: Syncope and collapse TECHNIQUE: Imaging protocol: Computed tomographic angiography of the neck with contrast. Exam focused on the cervical segments of the vasculature. 3D rendering (Not supervised by radiologist): MIP and/or 3D reconstructed images were created by the technologist. Radiation optimization: All CT scans at this facility use at least one of these dose optimization techniques: automated exposure control; mA and/or kV adjustment per patient size (includes targeted exams where dose is matched to clinical indication); or iterative reconstruction. Contrast material: ISOVUE; Contrast volume: 80 ml; Contrast route: INTRAVENOUS (IV); COMPARISON: CT HEAD/BRAIN WO CON 01/27/2025 9:58 PM FINDINGS: Right common carotid artery: No stenosis. No dissection or occlusion. Right internal carotid artery: No stenosis of the extracranial segment. No dissection or occlusion. Right external carotid artery: No occlusion or stenosis of the origin. Left common carotid artery: No stenosis. No dissection or occlusion. Left internal carotid artery: No stenosis of the extracranial segment. No dissection or occlusion. Left external carotid artery: No occlusion or stenosis of the origin. Right vertebral artery: No stenosis. No dissection or occlusion. Left vertebral artery: No stenosis. No dissection or occlusion. Soft tissues: Normal. No significant soft tissue swelling. Bones/joints: No acute fracture. IMPRESSION: No stenosis or dissection. REFERENCES: NASCET CRITERIA. The degree of stenosis in the cervical segment of the internal carotid artery is based on NASCET criteria. Normal is no stenosis. Mild is less than 50% stenosis. Moderate is 50-69% stenosis. Severe is 70% to 99% stenosis. Total occlusion is no detectable patent lumen.
[2025-01-27 21:06] LABS: Microscopic, Urine URINE MICROSCOPIC (MICROSCOPIC)
[2025-01-27 21:18] LABS: Lactic Acid 0.9 mmol/L (0.7-2.1)
[2025-01-27 21:37] LABS: Appearance,Urine CLEAR (Clear); Bilirubin,Urine Negative (Negative); Blood, Urine Negative (Negative); Color,Urine YELLOW (Yellow); Glucose,Urine (UA) Negative (Negative); Ketones,Urine Negative (Negative); Leukocyte Esterase,Urine Negative (Negative); Nitrate,Urine Negative (Negative); Protein,Urine Negative (Negative); Specific Gravity, Urine 1.015 (1.005-1.030); Urobilinogen,Urine 0.2 EU/dl (0.2)
[2025-01-27] MEDS: 0.9 % SODIUM CHLORIDE 50 ML VIAL 100 ML IV (22:06)
[2025-01-27] MEDS: IOPAMIDOL-370 (76%);100ML BOTTLE 150 ML IV (22:06)
[2025-01-27] MEDS: SODIUM CHLORIDE 0.9% 10ML SYR (RAD ONLY) 10 ML IV (22:06)
[2025-01-27] MEDS: KETOROLAC 30MG/ML VIAL 15 MG IV (22:11)
[2025-01-27] MEDS: ACETAMINOPHEN 500MG TAB 1000 MG PO (22:11)
[2025-01-27] MEDS: DEXAMETHASONE 4MG/ML 5ML MDV 10 MG IV (22:11)
[2025-01-27] MEDS: LIDOCAINE 5% TRANSDERMAL PATCH 1 EACH TD (22:11)
[2025-01-27] MEDS: METHOCARBAMOL 500MG TABLET 500 MG PO (22:11)
[2025-01-27 22:30] LABS: Bacteria,Urine 1+ /lpf
== END 2025-01-27 23:24 | disposition home or self-care (01) ==
PROVIDERS: Physician Assistant; Emergency Provider Emergency Medicine; PCP Nurse Practitioner
DX: R55 Syncope and collapse (principal); M54.50 Low back pain, unspecified; F41.9 Anxiety disorder, unspecified; F17.210 Nicotine dependence, cigarettes, uncomplicated; F17.290 Nicotine dependence, other tobacco product, uncomplicated; Z90.710 Acquired absence of both cervix and uterus
CPT/HCPCS: 70450; 70496; 70498; 71046; 71275; 80053; 81001; 82550; 83605; 83735; 84703; 85025; 85378; 86140; 93005; 96374; 96375; 99285; J1100; J1885; Q9967

== ENCOUNTER 2025-03-08 08:55 | Outpatient (CLI) | payer OTHER, SELFPAY ==
--- NOTE | 2025-03-08 09:00 | CA_ITS ---
APPROVED REPORT EXAM: Comprehensive 2D, Doppler, and color-flow Echocardiogram Training And Development Specialist: Lizzy Hernandez CRT Ht: 5 ft 8 in Wt: 138lbs BSA: 1.75 BP: 122/84 mmHg Indications: Abnormal ECG, Syncope, Smoker, tachycardia 2D Dimensions LA Volume 12.20 mL LA Volume Index 6.80 mL/m2 (M/F) 16-34 M-Mode Dimensions RVDd 2.70 cm (0.9-2.6) LA Diam 2.75 cm (1.9-4.0) LVDd 4.67 cm (3.5-5.7) LVDs 3.09 cm (3.5-5.7) IVSd 0.61 cm (0.6-1.1) PWd 0.47 cm (0.6-1.1) EF (Teich) 62.70% FS 33.80% EDV (Teich) 100.80 mL TAPSE 2.36 (<1.7) ESV (Teich) 37.60 mL LV Diastology E Decel Time 180 (160-240 msec) E/A Ratio 1.43 MED A' 8.50 cm/s LAT A' 6.40 cm/s Aortic Valve AO Peak GR. 4.00 mmHg Mitral Valve MV E Max Demar. 78.0 (40-130 cm/s) MV A Velocity 55.0 (40-130 cm/s) E/A Ratio 1.43 MV PHT 53.0 ms Pulmonary Valve PV Peak Velocity 152.0 (50-150 cm/s) Tricuspid Valve TR P. Velocity 205.00 cm/s RAP Estimate 10.00 mmHg RVSP 26.80 mmHg Left Ventricle The left ventricle is normal size. The left ventricular systolic function is normal. The left ventricular ejection fraction is within the normal range. There is normal left ventricular wall thickness. There is normal LV segmental wall motion. The left ventricular diastolic function is normal. LVEF is 55%. Right Ventricle The right ventricle is normal size. The right ventricular systolic function is normal. Atria The left atrium size is normal. The right atrium size is normal. There is no Doppler evidence of interatrial shunt. Aortic Valve The aortic valve opens well. The aortic valve is trileaflet. There is no aortic valvular stenosis. No aortic regurgitation is present. Mitral Valve The mitral valve is normal in structure. No evidence of mitral valve stenosis. There is no mitral valve regurgitation noted. Tricuspid Valve Tricuspid valve is grossly normal in structure and function. Mild tricuspid regurgitation. RVSP is 20-25 mmHg. Pulmonic Valve The pulmonary valve is normal in structure. Trace pulmonic regurgitation. Great Vessels The aortic root is normal in size. IVC is normal in size and collapses >50% with inspiration. Pericardium There is no pericardial effusion. Other Information Study Quality: Adequate Conclusion Normal biventricular systolic function. Mild TR. Electronically signed by : Kiarra Samayoa MD 03/08/2025 13:08:52
--- NOTE | 2025-03-08 10:00 | CA_ITS ---
APPROVED REPORT Exam: Exercise Treadmill Technologist: Kasie Valiente Ht: 5 ft 8 in Wt: 138 lbs BSA: 1.75 m2 HR: 74 bpm BP: 118/70 mmHg Stress Test Details Test: Exercise stress testing was performed using a Miller protocol. HR Resting HR: 74 bpm Max Heart Rate (APMHR): 197 bpm Max HR Achieved: 169 bpm Target HR (85% APMHR): 167 bpm % of APMHR: 86 Recovery HR: 95 bpm HR response to stress: Normal HR response to stress BP Resting BP: 118.0/70.0 mmHg Max BP: 142.0/78.0 mmHg Recovery BP: 110.0/72.0 mmHg BP response to stress: Normal blood pressure response to stress. ECG Resting ECG: Sinus Rhythm Stress EC.[address] depression Clinical Exercise duration: 6:53 min Exercise capacity: 8.6 METs Overall Exercise Capacity for Age: Fair Stress ECG Conclusion Symptoms: Dyspnea Arrhythmias/Ectopy: None ST-T Changes: 0.[address] depression Conclusion: Fair exercise capacity. No evidence of ischemia at peak stress on ECG. Electronically signed by : Kiarra Samayoa MD 03/08/2025 12:18:39
== END 2025-03-08 23:59 | disposition home or self-care (01) ==
LOC: RT 08:57
PROVIDERS: PCP Nurse Practitioner; Visit Provider Physician Assistant
DX: R42 Dizziness and giddiness (principal); R55 Syncope and collapse; R94.31 Abnormal electrocardiogram [ECG] [EKG]
CPT/HCPCS: 93017; 93018; 93306

== ENCOUNTER 2025-04-06 12:52 | Outpatient (CLI) | payer OTHER, SELFPAY ==
--- NOTE | 2025-04-06 12:55 | CT_ITS ---
FINAL REPORT TECHNIQUE: Thin section axial images are obtained through the abdomen and pelvis after intravenous contrast. Reconstruction images were obtained from the axial data. Exam was performed using dose reduction techniques. CLINICAL HISTORY: R/O APPENDIX ISSUES, HX OF HYSTERECTOMY COMPARISON: None FINDINGS: LUNG BASES: Lung bases are clear. Heart size is normal. LIVER: Homogeneous. No focal lesion. GALLBLADDER/BILIARY SYSTEM: Gallbladder is present. No gallstones. No biliary dilatation. SPLEEN: Unremarkable. PANCREAS: Unremarkable. ADRENALS: Unremarkable. KIDNEYS/URETERS/BLADDER: No hydronephrosis, renal mass, or renal stone. Unremarkable urinary bladder. GI TRACT: No small bowel obstruction or dilatation. Normal appendix. Large amount of stool in the rectum with moderate stool throughout the remainder of the colon. PELVIC ORGANS: Hysterectomy. LYMPH NODES/RETROPERITONEUM/MESENTERY: No lymphadenopathy. No abdominal aortic aneurysm. ABDOMINAL WALL: The abdominal wall is intact. FREE FLUID: No ascites. BONES: No acute osseous abnormality. IMPRESSION: Normal appendix. Large amount of stool in the rectum. Reviewed, Interpreted and Dictated by Mabel Garcia MD Transcribed by Ping Irene Authenticated and . [facility]
[2025-04-06] MEDS: SODIUM CHLORIDE 0.9% 10ML SYR (RAD ONLY) 10 ML IV (13:48)
[2025-04-06] MEDS: IOPAMIDOL-370 (76%);100ML BOTTLE 75 ML IV (13:48)
== END 2025-04-06 23:59 | disposition home or self-care (01) ==
PROVIDERS: PCP Nurse Practitioner; Visit Provider Nurse Practitioner
DX: R10.32 Left lower quadrant pain (principal); R10.84 Generalized abdominal pain
CPT/HCPCS: 74177; Q9967